=== PATIENT | female | born 1955 | race Caucasian/White ===

== ENCOUNTER 2020-12-07 16:21 | Emergency (ER) | payer OTHER ==
[2020-12-07 17:06] LABS: Absolute Lymphocytes (CBC) 0.9 K/uL (0.7-4.9); Basophils % 0.8 % (0-1.3); Hematocrit 40.5 % (36.0-45.0); MPV 8.4 fL (7.6-11.3); RBC Red Blood Cell Count 4.96 M/uL (3.86-4.86)
[2020-12-07 17:07] LABS: Protime INR 1.1
--- NOTE | 2020-12-07 17:13 | RAD REPORT ---
EXAM DESCRIPTION: RAD - Chest Single View - 12/07/2020 4:56 pm CLINICAL HISTORY: CONGESTION COMPARISON: CHEST PA AND LAT 2 VIEW dated 06/21/2007 FINDINGS: Lines: None. Lungs: No evidence of edema or pneumonia. Pleural: No significant pleural effusions or pneumothorax. Cardiac: The heart size is within normal limits. Bones: No acute fractures. Other: IMPRESSION: No acute cardiopulmonary disease.
[2020-12-07] MEDS ORDERED: NA CHLORIDE 0.9% 1,000 ML ONE (17:18)
[2020-12-07 17:19] LABS: ALT/SGPT 18 U/L (12-78); AST/SGOT 22 U/L (15-37); Albumin 3.7 g/dL (3.4-5.0); Alkaline Phosphatase 47 U/L (45-117); BUN Blood Urea Nitrogen 11 mg/dL (7-18); Bicarbonate 24 mmol/L (21-32); Bilirubin Direct < 0.1 mg/dL (0-0.2); Bilirubin Total 0.2 mg/dL (0.2-1.0); Glucose Level 97 mg/dL (74-106); Lipase 129 U/L (73-393); Magnesium 2.1 mg/dL (1.8-2.4); NT PRO-BNP 36 pg/mL (<125); Protein, Total 7.7 g/dL (6.4-8.2); Sodium Level 139 mmol/L (136-145); Troponin (Emerg Dept Use Only) < 0.02 ng/mL (0.0-0.045)
[2020-12-07] MEDS ORDERED: AZITHROMYCIN 250 MG TAB ONE (18:02)
[2020-12-07 18:24] LABS: SARS-COV-2 RT PCR POSITIVE (NEGATIVE)
[2020-12-07 18:46] LABS: Urine Blood Trace-intact (Negative); Urine Glucose Negative (Negative); Urine Protein Negative (Negative); Urine Specific Gravity >=1.030 (1.005-1.030); Urine pH 5.5 (5.0-7.0)
--- NOTE | 2020-12-07 18:59 | ER ---
Nurse's Notes [facility] Name: Damaris Guerrero Age: 65 yrs Sex: Female : 1955 Arrival Date: 12/07/2020 Time: 16:23 Bed 10 Private MD: Diagnosis: Acute bronchitis, unspecified-with COVID 19 Presentation: 12/07 16:29 Chief complaint: Cough, malaise, generalized weakness, and palpitations x 4 days. hb Coronavirus screen: Client presents with at least one sign or symptom that may indicate coronavirus-19. Standard/surgical mask placed on the client. Provider contacted for isolation considerations. Ebola Screen: No symptoms or risks identified at this time. Risk Assessment: Do you want to hurt yourself or someone else? Patient reports no desire to harm self or others. Onset of symptoms was December 04, 2020. 16:29 Method Of Arrival: Ambulatory hb 16:29 Acuity: KARLY 3 hb 17:07 Initial Sepsis Screen: Does the patient meet any 2 criteria? No. Patient's initial es2 sepsis screen is negative. Does the patient have a suspected source of infection? No. Patient's initial sepsis screen is negative. Historical: - Allergies: 16:30 PENICILLINS; hb - Immunization history:: Client reports having NOT received the Covid vaccine. - Social history:: Smoking status: Patient denies any tobacco usage or history of. Patient/guardian denies using alcohol, street drugs, The patient lives with family. - Family history:: not pertinent. Screenin:07 Abuse screen: Denies threats or abuse. Denies injuries from another. Nutritional es2 screening: No deficits noted. Tuberculosis screening: No symptoms or risk factors identified. Fall Risk None identified. IV access (20 points). Assessment: 17:05 Reassessment: Patient and/or family updated on plan of care and expected duration. Pain es2 level reassessed. Patient is alert, oriented x 3, equal unlabored respirations, skin warm/dry/pink. General: Appears in no apparent distress. Behavior is calm, cooperative, appropriate for age. Pain: Denies pain. Neuro: Level of Consciousness is awake, alert, obeys commands, Oriented to person, place, time, situation, Appropriate for age Gait is unsteady, Speech is normal. Cardiovascular: Capillary refill < 3 seconds Patient's skin is warm and dry. Respiratory: Reports cough that is. GI: Reports diarrhea. : No signs and/or symptoms were reported regarding the genitourinary system. EENT: No signs and/or symptoms were reported regarding the EENT system. Derm: No signs and/or symptoms reported regarding the dermatologic system. Musculoskeletal: No signs and/or symptoms reported regarding the musculoskeletal system. 19:00 Reassessment: Patient appears in no apparent distress at this time. Patient and/or jb4 family updated on plan of care and expected duration. Pain level reassessed. Patient is alert, oriented x 3, equal unlabored respirations, skin warm/dry/pink. 19:28 Reassessment: Patient appears in no apparent distress at this time. Patient and/or jb4 family updated on plan of care and expected duration. Pain level reassessed. Patient is alert, oriented x 3, equal unlabored respirations, skin warm/dry/pink. Vital Signs: 16:29 BP 122 / 93; Pulse 92; Resp 16; Temp 97.9; Pulse Ox 99% on R/A; Weight 58.97 kg; Height hb 5 ft. 3 in. (160.02 cm); Pain 0/10; 17:04 BP 113 / 77; Pulse 84; Resp 24; Pulse Ox 98% on R/A; es2 19:28 BP 121 / 74; Pulse 84; Resp 16; Pulse Ox 98% on R/A; jb4 16:29 Body Mass Index 23.03 (58.97 kg, 160.02 cm) hb ED Course: 16:23 Patient arrived in ED. as 16:30 Triage completed. hb 16:30 Arm band placed on. hb 16:36 Dianne Tyler, JESSICA is Primary Nurse. es2 16:36 John Hewitt MD is Attending Physician. ma2 16:51 Lipase Sent. es2 16:52 Basic Metabolic Panel Sent. es2 16:52 CBC with Diff Sent. es2 16:52 LFT's Sent. es2 16:52 Troponin (emerg Dept Use Only) Sent. es2 16:52 PT-INR Sent. es2 16:52 NT PRO-BNP Sent. es2 16:52 Magnesium Sent. es2 16:52 Strep Sent. es2 16:56 XRAY Chest (1 view) In Process Unspecified. EDMS 17:03 Lipase Sent. es2 17:04 Inserted saline lock: 20 gauge in right antecubital area, using aseptic technique. es2 Blood collected. 17:07 Patient has correct armband on for positive identification. Bed in low position. es2 17:07 No provider procedures requiring assistance completed. es2 18:47 Urine Dipstick-Ancillary Sent. es2 19:28 IV discontinued, intact, bleeding controlled, No redness/swelling at site. Pressure jb4 dressing applied. Administered Medications: 17:03 Drug: NS 0.9% 1000 ml Route: IV; Rate: 1 bolus; Site: right antecubital; es2 17:48 Follow up: Response: No adverse reaction es2 17:47 Drug: AZITHromycin 500 mg Route: PO; es2 19:13 Follow up: Response: No adverse reaction jb4 19:13 Drug: Zofran (Ondansetron) 4 mg Route: IVP; Site: right antecubital; jb4 19:14 Follow up: Response: No adverse reaction jb4 Outcome: 18:58 Discharge ordered by . ma2 19:28 Discharged to home ambulatory. jb4 19:28 Condition: stable 19:28 Discharge instructions given to patient, Instructed on discharge instructions, follow up and referral plans. medication usage, Demonstrated understanding of instructions, follow-up care, medications, Prescriptions given X 4. 19:30 Patient left the ED. jb4 Signatures: Dispatcher [employer] EDMS Renea Layton Heather, RN RN Perry Ziegler RN RN jb4 John Hewitt MD MD ia2 Dianne Tyler RN RN es2 Corrections: (The following items were deleted from the chart) 16:30 16:30 Allergies: No Known Allergies; hb hb 17:30 16:51 CORONAVIRUS+MR.LAB.BRZ drawn and sent. es2 EDMS 17:30 16:52 Influenza Screen (A \T\ B)+BA.LAB.BRZ drawn and sent. es2 EDMS 17:30 16:52 Respiratory Syncytial Virus Ag+BA.LAB.BRZ drawn and sent. es2 EDMS
--- NOTE | 2020-12-07 18:59 | EDPHYS ---
Physician Documentation [facility] Name: Damaris Guerrero Age: 65 yrs Sex: Female : 1955 Arrival Date: 12/07/2020 Time: 16:23 Bed 10 Private MD: ED Physician John Hewitt HPI: 12/07 17:42 This 65 yrs old Female presents to ER via Ambulatory with complaints of ma2 Cough, Diarrhea. 17:42 Onset: The symptoms/episode began/occurred gradually, 2 day(s) ago. Severity of ma2 symptoms: At their worst the symptoms were moderate, in the emergency department the symptoms are unchanged. Associated signs and symptoms: Pertinent positives: diarrhea, Pertinent negatives: chest pain, ear ache, fever, rhinorrhea, sore throat, vomiting. The patient has experienced a previous episode. Historical: - Allergies: 16:30 PENICILLINS; hb - Immunization history:: Client reports having NOT received the Covid vaccine. - Social history:: Smoking status: Patient denies any tobacco usage or history of. Patient/guardian denies using alcohol, street drugs, The patient lives with family. - Family history:: not pertinent. ROS: 17:42 Constitutional: Negative for fever, chills, and weight loss. ma2 17:42 All other systems are negative. Exam: 17:42 Constitutional: This is a well developed, well nourished patient who is awake, alert, ma2 and in no acute distress. Head/Face: Normocephalic, atraumatic. Eyes: Pupils equal round and reactive to light, extra-ocular motions intact. Lids and lashes normal. Conjunctiva and sclera are non-icteric and not injected. Cornea within normal limits. Periorbital areas with no swelling, redness, or edema. ENT: Nares patent. No nasal discharge, no septal abnormalities noted. Tympanic membranes are normal and external auditory canals are clear. Oropharynx with no redness, swelling, or masses, exudates, or evidence of obstruction, uvula midline. Mucous membranes moist. Neck: Trachea midline, no thyromegaly or masses palpated, and no cervical lymphadenopathy. Supple, full range of motion without nuchal rigidity, or vertebral point tenderness. No Meningismus. Chest/axilla: Normal chest wall appearance and motion. Nontender with no deformity. No lesions are appreciated. Cardiovascular: Regular rate and rhythm with a normal S1 and S2. No gallops, murmurs, or rubs. Normal PMI, no JVD. No pulse deficits. Respiratory: Lungs have equal breath sounds bilaterally, clear to auscultation and percussion. No rales, rhonchi or wheezes noted. No increased work of breathing, no retractions or nasal flaring. Abdomen/GI: Soft, non-tender, with normal bowel sounds. No distension or tympany. No guarding or rebound. No evidence of tenderness throughout. Back: No spinal tenderness. No costovertebral tenderness. Full range of motion. Skin: Warm, dry with normal turgor. Normal color with no rashes, no lesions, and no evidence of cellulitis. MS/ Extremity: Pulses equal, no cyanosis. Neurovascular intact. Full, normal range of motion. Neuro: Awake and alert, GCS 15, oriented to person, place, time, and situation. Cranial nerves II-XII grossly intact. Motor strength 5/5 in all extremities. Sensory grossly intact. Cerebellar exam normal. Normal gait. Vital Signs: 16:29 BP 122 / 93; Pulse 92; Resp 16; Temp 97.9; Pulse Ox 99% on R/A; Weight 58.97 kg; Height hb 5 ft. 3 in. (160.02 cm); Pain 0/10; 17:04 BP 113 / 77; Pulse 84; Resp 24; Pulse Ox 98% on R/A; es2 19:28 BP 121 / 74; Pulse 84; Resp 16; Pulse Ox 98% on R/A; jb4 16:29 Body Mass Index 23.03 (58.97 kg, 160.02 cm) hb MDM: 17:42 Differential Diagnosis: Bronchitis Upper Respiratory Infection Sinusitis Pharyngitis ma2 Otitis Media. 18:58 Data reviewed: vital signs, nurses notes. Counseling: I had a detailed discussion with maAustin the patient and/or guardian regarding: the historical points, exam findings, and any diagnostic results supporting the discharge/admit diagnosis, the presence of at least one elevated blood pressure reading (>120/80) during this emergency department visit, lab results, radiology results, the need for outpatient follow up. Response to treatment: the patient's symptoms have markedly improved after treatment. 18:58 Patient medically screened. ma2 12/07 16:37 Order name: Strep; Complete Time: 18:25 ma2 12/07 16:37 Order name: Basic Metabolic Panel; Complete Time: 17:28 ma2 12/07 16:37 Order name: CBC with Diff; Complete Time: 17:28 ma2 12/07 16:37 Order name: LFT's; Complete Time: 17:28 ma2 12/07 16:37 Order name: Magnesium; Complete Time: 17:28 ma2 12/07 16:37 Order name: NT PRO-BNP; Complete Time: 17:28 ma2 12/07 16:37 Order name: PT-INR; Complete Time: 17:28 ma2 12/07 16:37 Order name: Troponin (emerg Dept Use Only); Complete Time: 17:28 ma2 12/07 16:37 Order name: Lipase; Complete Time: 17:28 ma2 12/07 18:07 Order name: Throat Culture EDMS 12/07 18:25 Order name: COVID-19/FLU A+B/RSV; Complete Time: 18:29 EDMS 12/07 16:37 Order name: Droplet/Contact Precautions; Complete Time: 17:48 ma2 12/07 16:37 Order name: Labs collected and sent; Complete Time: 16:52 ma2 12/07 16:37 Order name: O2 Per Protocol; Complete Time: 17:48 ma2 12/07 16:37 Order name: XRAY Chest (1 view); Complete Time: 17:28 ma2 12/07 16:37 Order name: EKG; Complete Time: 16:38 ma2 12/07 16:37 Order name: Cardiac monitoring; Complete Time: 17:03 ma2 12/07 16:37 Order name: EKG - Nurse/Tech; Complete Time: 17:31 ma2 12/07 16:37 Order name: IV Saline Lock; Complete Time: 16:51 ma2 12/07 16:37 Order name: O2 Sat Monitoring; Complete Time: 17:03 ma2 12/07 16:37 Order name: Urine Dipstick-Ancillary (obtain specimen); Complete Time: 18:47 ma2 12/07 18:45 Order name: Urine Dipstick-Ancillary EDMS Administered Medications: 17:03 Drug: NS 0.9% 1000 ml Route: IV; Rate: 1 bolus; Site: right antecubital; es2 17:48 Follow up: Response: No adverse reaction es2 17:47 Drug: AZITHromycin 500 mg Route: PO; es2 19:13 Follow up: Response: No adverse reaction jb4 19:13 Drug: Zofran (Ondansetron) 4 mg Route: IVP; Site: right antecubital; jb4 19:14 Follow up: Response: No adverse reaction jb4 Disposition Summary: 12/07/20 18:58 Discharge Ordered Location: Home ma2 Condition: Stable ma2 Diagnosis - Acute bronchitis, unspecified - with COVID 19 ma2 Followup: ma2 - With: Private Physician - When: Tomorrow - Reason: If symptoms return, Continuance of care Discharge Instructions: - Discharge Summary Sheet ma2 - Acute Bronchitis, Adult ma2 - COVID-19 ma2 - COVID-19 Frequently Asked Questions ma2 Forms: - Medication Reconciliation Form ma2 - Thank You Letter ma2 - Antibiotic Education ma2 - Prescription Opioid Use ma2 Prescriptions: - albuterol sulfate 90 mcg/actuation Inhalation aerosol powdr breath activated - inhale 2 puff by INHALATION route 3-4 times daily; 2 Cartridge; Refills: 0, ma2 Product Selection Permitted - Zithromax Z-Juan M 250 mg Oral Tablet - take 1 tablet by ORAL route as directed for 5 days Day 1 - take two (2) tablets ma2 one time. Day 2, 3, 4 , 5 take one (1) tablet once daily.; 6 tablet; Refills: 0, Product Selection Permitted - Medrol (Juan M) 4 mg Oral Tablets, Dose Pack - take 1 tablet by ORAL route as directed - follow package instructions; 1 ma2 packet; Refills: 0, Product Selection Permitted - ondansetron 8 mg Oral tablet,disintegrating - take 1 tablet by ORAL route every 8 hours; 21 tablet; Refills: 0, Product ma2 Selection Permitted Signatures: Dispatcher [employer] EDBonnie Hull RN RN Perry Ziegler RN RN jb4 John Hewitt MD MD ma2 Dianne Tyler RN RN es2 Corrections: (The following items were deleted from the chart) 16:30 16:30 Allergies: No Known Allergies; hb hb 17:30 16:38 Influenza Screen (A \T\ B)+BA.LAB.BRZ ordered. EDMS EDMS 17: 16:38 Respiratory Syncytial Virus Ag+BA.LAB.BRZ ordered. EDMS EDMS 17 16:38 CORONAVIRUS+MR.LAB.BRZ ordered. EDMS EDMS
[2020-12-07] MEDS ORDERED: ONDANSETRON 4 MG/2 ML VIAL ONE (19:30)
[2020-12-07 19:37] VITALS: TEMP 97.9
[2020-12-07 19:38] VITALS: O2SAT 98
[2020-12-07 19:39] VITALS: BP 121/74
== END 2020-12-07 19:30 | disposition home or self-care (01) ==
LOC: ER 16:21
DX: U07.1 COVID-19 (principal); J20.9 Acute bronchitis, unspecified; Z88.5 Allergy status to narcotic agent
CPT/HCPCS: 87070; 85025; 80048; 36415; 83735; 85610; 80076; 87081; 81003; 84484; 83690; 83880; 0241U; 71045; 96374; 99284; J7030; J2405

== ENCOUNTER 2020-12-20 09:32 | Emergency (ER) | payer OTHER ==
--- NOTE | 2020-12-20 09:50 | EDPHYS ---
Physician Documentation [facility] Name: Damaris Guerrero Age: 65 yrs Sex: Female : 1955 Arrival Date: 12/20/2020 Time: 09:37 Bed Waiting Private MD: ED Physician Chuy Beltran HPI: 12/20 09:50 This 65 yrs old Female presents to ER via Ambulatory with complaints of covid kb retest. 09:50 Pt reports she tested positive for COVID on 12/07/20 and wants to be retested to see if kb it is gone. Pt is asymptomatic. The patient has not experienced similar symptoms in the past. The patient has not recently seen a physician. Historical: - Allergies: 09:46 PENICILLINS; jl7 - PMHx: 09:46 Hypothyroidism; Hypercholesterolemia; Asthma; jl7 - PSHx: 09:46 None; jl7 ROS: 09:50 Constitutional: Negative for fever, chills, and weight loss. kb 09:50 All other systems are negative. Exam: 09:50 Constitutional: This is a well developed, well nourished patient who is awake, alert, kb and in no acute distress. Head/Face: Normocephalic, atraumatic. ENT: Moist Mucous membranes Cardiovascular: Regular rate and rhythm with a normal S1 and S2. No gallops, murmurs, or rubs. No pulse deficits. Respiratory: Respirations even and unlabored. No increased work of breathing, no retractions or nasal flaring. Skin: Warm, dry with normal turgor. Normal color. MS/ Extremity: Pulses equal, no cyanosis. Neurovascular intact. Full, normal range of motion. Neuro: Awake and alert, GCS 15, oriented to person, place, time, and situation. Moves all extremities. Normal gait. Psych: Awake, alert, with orientation to person, place and time. Behavior, mood, and affect are within normal limits. Vital Signs: 09:44 BP 106 / 75; Pulse 84; Resp 15; Temp 96.7; Pulse Ox 99% on R/A; Weight 56.7 kg (R); jl7 Height 5 ft. 3 in. (160.02 cm); 09:44 Body Mass Index 22.14 (56.70 kg, 160.02 cm) jl7 MDM: 09:45 Patient medically screened. kb 09:49 Data reviewed: vital signs, nurses notes. Data interpreted: Pulse oximetry: on room air kb is 99 %. Interpretation: normal. Counseling: I had a detailed discussion with the patient and/or guardian regarding: the historical points, exam findings, and any diagnostic results supporting the discharge/admit diagnosis, the need for outpatient follow up, a family practitioner, to return to the emergency department if symptoms worsen or persist or if there are any questions or concerns that arise at home. Medical screen evaluation completed. EMTALA emergency medical condition absent. Administered Medications: No medications were administered Disposition: 09:49 Encounter for repeat COVID test - asymptomatic. kb 13:09 Co-signature as Attending Physician, Chuy Beltran MD I agree with the assessment and kdr plan of care. Disposition Summary: 12/20/20 09:50 Discharge Ordered Location: Home kb Condition: Stable kb Diagnosis - Encounter for screening, unspecified kb Followup: kb - With: Emergency Department - When: As needed - Reason: Worsening of condition Followup: kb - With: Private Physician - When: 2 - 3 days - Reason: Recheck today's complaints, Continuance of care, Re-evaluation by your physician Forms: - Medication Reconciliation Form kb - Thank You Letter kb - Antibiotic Education kb - Prescription Opioid Use kb Signatures: Mackenzie Martin FNP-Gopi DHALIWAL-Chuy Harrison MD MD kdr Vega Hicks RN RN jl7 Corrections: (The following items were deleted from the chart) 09:47 09:46 PMHx: None; jl7 jl7
--- NOTE | 2020-12-20 09:50 | ER ---
Nurse's Notes [facility] Name: Damaris Guerrero Age: 65 yrs Sex: Female : 1955 Arrival Date: 12/20/2020 Time: 09:37 Bed Waiting Private MD: Diagnosis: Encounter for screening, unspecified Presentation: 12/20 09:44 Chief complaint: Patient states: Covid + 12/07/20, requesting retest. Coronavirus jl7 screen: Client reports previous positive COVID test result. Date of collection: December 07, 2020. Ebola Screen: No symptoms or risks identified at this time. Initial Sepsis Screen: Does the patient meet any 2 criteria? No. Patient's initial sepsis screen is negative. Does the patient have a suspected source of infection? No. Patient's initial sepsis screen is negative. Risk Assessment: Do you want to hurt yourself or someone else? Patient reports no desire to harm self or others. Onset of symptoms was December 01, 2020. Care prior to arrival: None. 09:44 Method Of Arrival: Ambulatory jl7 09:44 Acuity: KARLY 4 jl7 Historical: - Allergies: 09:46 PENICILLINS; jl7 - PMHx: 09:46 Hypothyroidism; Hypercholesterolemia; Asthma; jl7 - PSHx: 09:46 None; jl7 Screenin:51 Abuse screen: Denies threats or abuse. Denies injuries from another. Nutritional jl7 screening: No deficits noted. Tuberculosis screening: No symptoms or risk factors identified. Fall Risk None identified. Assessment: 09:47 Reassessment: RADHA Mann in triage assessing pt. jl7 Vital Signs: 09:44 BP 106 / 75; Pulse 84; Resp 15; Temp 96.7; Pulse Ox 99% on R/A; Weight 56.7 kg (R); jl7 Height 5 ft. 3 in. (160.02 cm); 09:44 Body Mass Index 22.14 (56.70 kg, 160.02 cm) jl7 ED Course: 09:37 Patient arrived in ED. as 09:37 Mackenzie Martin FNP-C [facility]. kb 09:38 Chuy Beltran MD is Attending Physician. kb 09:46 Triage completed. jl7 09:46 Arm band placed on right wrist. jl7 09:51 Patient has correct armband on for positive identification. jl7 09:51 No provider procedures requiring assistance completed. Patient did not have IV access jl7 during this emergency room visit. Administered Medications: No medications were administered Outcome: 09:50 Discharge ordered by . kb 09:51 Discharged to home ambulatory. jl7 09:51 Condition: stable 09:51 Discharge instructions given to patient, Instructed on discharge instructions, follow up and referral plans. Demonstrated understanding of instructions, follow-up care. 09:55 Patient left the ED. jl7 Signatures: Mackenzie Martin, DECISION SCIENCE ANALYST-C DECISION SCIENCE ANALYST-Reena Alamo Jahala, RN RN jl7 Corrections: (The following items were deleted from the chart) 09:47 09:46 PMHx: None; jl7 jl7
[2020-12-20 10:00] VITALS: BP 106/75; TEMP 96.7; O2SAT 99
== END 2020-12-20 09:55 | disposition home or self-care (01) ==
LOC: ER 09:32
DX: Z20.822 Contact with and (suspected) exposure to COVID-19 (principal)
CPT/HCPCS: 99281

== ENCOUNTER 2022-02-25 08:45 | Emergency (ER) | payer OTHER ==
--- OUTSIDE RECORDS SUMMARY | 2022-02-25 08:52 | XMS REPORT | Continuity of Care Document ---
:1955 Author Organization [facility] t Address [address] [place] [address] Care Team Providers Name Role Phone Opal Arellano Primary Care Physician [phone] Barbra Hammer Attending Clinician Unavailable KARINA HERNANDEZ Attending Clinician Unavailable Sumeet Paul Attending Clinician JOSE Attending Clinician Unavailable SUMEET MARIE Attending Clinician Unavailable Doctor Unassigned, [place] Attending Clinician Unavailable KARINA HERNANDEZ Admitting Clinician Unavailable JOSE Admitting Clinician Unavailable Payers Payer Name Policy Type Policy Number Effective Date Expiration Date S gricelda [facility] WELLMED [id number] 2020 00:00:00 AARP [facility] 53 [id number] 2020 [facility] ADVANTAGE 00:00:00 - [facility] Problems Condition Condition Condition Status Onset Resolution Last Treating Co mments Source Name Details Category Date Date Treatment Clinician Date [id number] Acquired Problem Comm on hypothyroi Spirit dism [facility] [id number] Eczema, Problem Common unspecifie Spirit d type [facility] [id number] Mild Problem Common intermitte Spirit nt asthma - [facility] without St complicati [facility] Allergic Allergic Problem Commo n rhinitis rhinitis, Spiri t unspecifie - CHI d [facility] [id number] Intrinsic Problem Comm on eczema [facility] [id number] Nontraumat Problem Co mmon ic tear of [facility] right [facility] rotator St cuff, [facility] unspecifie Medica l d tear Center extent Osteoporos Osteoporos Problem C ommon is is [facility] Hypothyroi Hypothyroi Problem C ommon dism [facility] Hyperlipid Hyperlipid Problem C ommon emia emia [facility] [id number] Vitamin D Problem Comm on insufficie Spirit ncy [facility] No known No known Disease Unive rs active active ity of problems problems [facility] Allergies, Adverse Reactions, Alerts Allergy Allergy Status Severity Reaction(s) Onset Inactive Treating Comm ents Source Name Type Date Date Clinician NO KNOWN Drug Active Univers ALLERGIE Class ity of S [facility] Codeine Codeine Active vomiting [facility] Social History Social Habit Start Date Stop Date Quantity Comments Source History of [facility] - Tobacco Use [facility] Sex Assigned At [facility] guillermina - [facility] Exposure to Not sure [facility] SARS-CoV-2 [facility] (event) Branch Tobacco use and 2021-06-18 2021-06-18 Smokeless tobacco Un iversity of exposure 00:00:00 00:00:00 non-user [facility] Alcohol intake 2021-06-18 2021-06-18 0 /d University of 00:00:00 00:00:00 [facility] Smoking Status Start Date Stop Date Source Never Smoker [facility] Medications Ordered Filled Start Stop Current Ordering Indication Dosage Frequency Signature Comments Components Source Medication Medication Date Date Medication? Clinician (SIG) Name Name Mupirocin 2 Mupirocin 2 2022- No 1{appli BID Mupirocin % % 6-24 06-29 cation} 2 % 00:00: 00:00 00 :00 pravastatin Yes 40mg Take 40 mg Univers (PRAVACHOL) 4-13 by mouth ity of 40 mg 12:18: at [place] tablet 30 bedtime. Medical Branch loratadine Yes 10mg Take 10 mg U nivers (CLARITIN) 4-13 by mouth ity o f 10 mg 12:18: daily. [place] tablet 30 Medical Branch thyroid Yes 60mg Take 60 mg Univ ers (ARMOUR 4-13 by mouth ity of THYROID) 60 12:18: every [place] mg tablet 30 morning. Medica l Branch beclomethas Yes Inhale 2 Un jamshid one 4-13 (two) ity of dipropionat 12:18: times [place] e (QVAR) 80 30 daily. Medica l mcg/actuati Branch on inhaler montelukast Yes 10mg Take 10 mg Univers (SINGULAIR) 4-13 by mouth ity of 10 mg 12:18: daily. [place] tablet 30 Medical Branch ALBUTEROL Yes Inhale. Unive rs SULFATE 4-13 ity of (PROAIR HFA 12:18: [place] INHALE) 30 Medical Branch ibandronate Yes 150mg Take 150 U nivers (BONIVA) 4-13 mg by ity of 150 mg 12:18: mouth once [place] tablet 30 every Medical month. Branch clobetasol Yes Apply to Uni vers (TEMOVATE) 4-13 area(s) 2 ity of 0.05 % 12:18: (two) [place] ointment 30 times Medical daily. Branch ESTRADIOL Yes Insert Univer s (VAGIFEM 4-13 into ity of VAGINAL) 12:18: vagina. [place] 30 Medical Branch PROGESTERON Yes Univer s E MISC 4-13 ity of 12:18: 30 Medical Branch Cyanocobala Yes 2500ug Place Uni vers min 4-13 2,500 mcg ity of (VITAMIN 12:18: [place] B-12[place] 1,000 30 tongue. Medic al mcg Branch sublingual tablet Biotin Yes 1000ug Take 1,000 Uni vers (APPEAREX) 4-13 mcg by ity of 2,500 mcg 12:18: mouth. [place] Tab 30 Medical Branch pravastatin Yes 40mg Take 40 mg Univers (PRAVACHOL) 4-13 by mouth ity of 40 mg 12:18: at [place] tablet 30 bedtime. Medical Branch loratadine Yes 10mg Take 10 mg U nivers (CLARITIN) 4-13 by mouth ity o f 10 mg 12:18: daily. [place] tablet 30 Medical Branch thyroid Yes 60mg Take 60 mg Univ ers (ARMOUR 4-13 by mouth ity of THYROID) 60 12:18: every [place] mg tablet 30 morning. Medica l Branch beclomethas Yes Inhale 2 Un jamshid one 4-13 (two) ity of dipropionat 12:18: times [place] e (QVAR) 80 30 daily. Medica l mcg/actuati Branch on inhaler montelukast Yes 10mg Take 10 mg Univers (SINGULAIR) 4-13 by mouth ity of 10 mg 12:18: daily. [place] tablet 30 Medical Branch ALBUTEROL Yes Inhale. Unive rs SULFATE 4-13 ity of (PROAIR HFA 12:18: [place] INHALE) 30 Medical Branch ibandronate Yes 150mg Take 150 U nivers (BONIVA) 4-13 mg by ity of 150 mg 12:18: mouth once [place] tablet 30 every Medical month. Branch clobetasol Yes Apply to Uni vers (TEMOVATE) 4-13 area(s) 2 ity of 0.05 % 12:18: (two) [place] ointment 30 times Medical daily. Branch ESTRADIOL Yes Insert Univer s (VAGIFEM 4-13 into ity of VAGINAL) 12:18: vagina. 30 Medical Branch PROGESTERON Yes Univer s E MISC 4-13 ity of 12:18: 30 Medical Branch Cyanocobala Yes 2500ug Place Uni vers min 4-13 2,500 mcg ity of (VITAMIN 12:18: [place] B-12[place] 1,000 30 tongue. Medic al mcg Branch sublingual tablet Biotin Yes 1000ug Take 1,000 Uni vers (APPEAREX) 4-13 mcg by ity of 2,500 mcg 12:18: mouth. [place] Tab 30 Medical Branch mupirocin 2 Yes [id number] Apply to Univers % ointment 06-18 [id number] area(s) 3 it y of 00:00: (three) [place] 00 times Medical daily. Branch mupirocin 2 Yes [id number] Apply to Univers % ointment - [id number] area(s) 3 it y of 00:00: (three) [place] 00 times Medical daily. Branch cephALEXin 2021- No [id number] 500mg Take 1 Univers (KEFLEX) -06-29 [id number] capsule by it y of 500 mg 00:00: 04:59 mouth 4 [place] capsule 00 :00 (four) Medical times [place] daily for 10 days. EUTHYROX 75 Yes TAKE 1 Univ ers mcg tablet 3-10 TABLET BY ity of 00:00: MOUTH IN [place] 00 THE Medical MORNING ON Branch AN EMPTY STOMACH ONCE DAILY WEDNESDAY - WEDNESDAY SKIP WEDNESDAY. EUTHYROX 75 Yes TAKE 1 Univ ers mcg tablet 3-10 TABLET BY ity of 00:00: MOUTH IN [place] 00 THE Medical MORNING ON Branch AN EMPTY STOMACH ONCE DAILY WEDNESDAY - WEDNESDAY SKIP WEDNESDAY. methylPREDN methylPREDN 2021- No methylPRED ISolone 4 ISolone 4 3-05-16 NISolone 4 MG MG 00:00: 00:00 MG 00 :00 Pseudoeph-B Pseudoeph-B 2021- No 5{ml_as QID Pseudoeph- romphen-DM romphen-DM 04-24 _needed Bromphen-D 06-04-19 06-04-19 00:00: 00:00 } M -20 MG/5ML MG/5ML 00 :00 MG/5ML Pseudoeph-B Pseudoeph-B 2021- No 5{ml_as QID Pseudoeph- romphen-DM romphen-DM 2-17 03-09 _needed Bromphen-D 30-1-20 30-20 00:00: 00:00 } M 30-1-20 MG/5ML MG/5ML 00 :00 MG/5ML Pseudoeph-B Pseudoeph-B 2021-0 2022- No 5{ml_as QID Pseudoeph- romphen-DM romphen-DM 2-17 03-09 _needed Bromphen-D 30-1-20 -20 00:00: 00:00 } M 30-1-20 MG/5ML MG/5ML 00 :00 MG/5ML alendronate 2021-0 Yes 70mg Take 70 mg Univers 70 mg 1-18 by mouth ity of tablet 00:00: weekly. [address] alendronate 2021-0 Yes 70mg Take 70 mg Univers 70 mg 1-18 by mouth ity of tablet 00:00: weekly. [address] Kenalog Kenalog 2019-1 No 40mg Common (Triamcinol (Triamcinol 0-05 S pirit one) one) 00:00: - CHI 00 [facility] Bupivicaine Bupivicaine 2020-1 No 5mg Common [place] 0-05 Spirit 00:00: - CHI 00 [facility] Kenalog Kenalog 2020-1 No 40mg Common (Triamcinol (Triamcinol 0-05 S pirit one) one) 00:00: - CHI 00 [facility] Bupivicaine Bupivicaine 2020-1 No 5mg Common [place] 0-05 Spirit 00:00: - CHI 00 [facility] Kenalog Kenalog 2020-1 No 40mg Common (Triamcinol (Triamcinol 0-05 S pirit one) one) 00:00: - CHI 00 [facility] Bupivicaine Bupivicaine 2020-1 No 5mg Common [place] 0-05 Spirit 00:00: - CHI 00 [facility] Kenalog Kenalog 2020-1 No 40mg Common (Triamcinol (Triamcinol 0-05 S pirit one) one) 00:00: - CHI 00 [facility] Bupivicaine Bupivicaine 2020-1 No 5mg Common [place] 0-05 Spirit 00:00: - CHI 00 [facility] Kenalog Kenalog 2020-1 No 40mg Common (Triamcinol (Triamcinol 0-05 S pirit one) one) 00:00: - CHI 00 [facility] Bupivicaine Bupivicaine 2020-1 No 5mg Common [place] 0-05 Spirit 00:00: - CHI 00 [facility] Kenalog Kenalog 2020- No 40mg Common (Triamcinol (Triamcinol 0-05 S pirit one) one) 00:00: - CHI 00 [facility] Bupivicaine Bupivicaine 2020- No 5mg Common [place] 0-05 Spirit 00:00: - CHI 00 [facility] Kenalog Kenalog 2020- No 40mg Common (Triamcinol (Triamcinol 0-05 S pirit one) one) 00:00: - CHI 00 [facility] Bupivicaine Bupivicaine 2020-1 No 5mg Common [place] 0-05 Spirit 00:00: - CHI 00 [facility] Kenalog Kenalog 2020- No 40mg Common (Triamcinol (Triamcinol 0-05 S pirit one) one) 00:00: - CHI 00 [facility] Bupivicaine Bupivicaine 2020-1 No 5mg Common [place] 0-05 Spirit 00:00: - CHI 00 [facility] Kenalog Kenalog 2020-1 No 40mg Common (Triamcinol (Triamcinol 0-05 S pirit one) one) 00:00: - CHI 00 [facility] Bupivicaine Bupivicaine 2020-1 No 5mg Common [place] 0-05 Spirit 00:00: - CHI 00 [facility] Kenalog Kenalog 2020-1 No 40mg Common (Triamcinol (Triamcinol 0-05 S pirit one) one) 00:00: - CHI 00 [facility] Bupivicaine Bupivicaine 2020-1 No 5mg Common [place] 0-05 Spirit 00:00: - CHI 00 [facility] Albuterol Albuterol 2020-0 Yes Barbra 3 ml as Common Sulfate Sulfate 6-10 [place] needed Spirit 00:00: - CHI 00 [facility] Albuterol Albuterol 2020-0 No 3{ml_as QID Albuterol Sulfate Sulfate 6-10 _needed Sulfate (2.5 (2.5 00:00: } (2.5 MG/3ML) MG/3ML) 00 MG/3ML) 0.083% 0.083% 0.083% Albuterol Albuterol 2019-0 No 3{ml_as QID Albuterol Sulfate Sulfate 6-10 _needed Sulfate (2.5 (2.5 00:00: } (2.5 MG/3ML) MG/3ML) 00 MG/3ML) 0.083% 0.083% 0.083% Albuterol Albuterol 2019-0 No 3{ml_as QID Albuterol Sulfate Sulfate 6-10 _needed Sulfate (2.5 (2.5 00:00: } (2.5 MG/3ML) MG/3ML) 00 MG/3ML) 0.083% 0.083% 0.083% Albuterol Albuterol 2019-0 No 3{ml_as QID Albuterol Sulfate Sulfate 6-10 _needed Sulfate (2.5 (2.5 00:00: } (2.5 MG/3ML) MG/3ML) 00 MG/3ML) 0.083% 0.083% 0.083% Albuterol Albuterol 2019-0 No 3{ml_as TID Albuterol Sulfate Sulfate 6-10 _needed Sulfate (2.5 (2.5 00:00: } (2.5 MG/3ML) MG/3ML) 00 MG/3ML) 0.083% 0.083% 0.083% Albuterol Albuterol 2019-0 No 3{ml_as TID Albuterol Sulfate Sulfate 6-10 _needed Sulfate (2.5 (2.5 00:00: } (2.5 MG/3ML) MG/3ML) 00 MG/3ML) 0.083% 0.083% 0.083% Albuterol Albuterol 2019-0 No 3{ml_as TID Albuterol Sulfate Sulfate 6-10 _needed Sulfate (2.5 (2.5 00:00: } (2.5 MG/3ML) MG/3ML) 00 MG/3ML) 0.083% 0.083% 0.083% Albuterol Albuterol 2020-0 No 3{ml_as TID Albuterol Sulfate Sulfate 6-10 _needed Sulfate (2.5 (2.5 00:00: } (2.5 MG/3ML) MG/3ML) 00 MG/3ML) 0.083% 0.083% 0.083% Albuterol Albuterol 2020-0 No 3{ml_as TID Albuterol Sulfate Sulfate 6-10 _needed Sulfate (2.5 (2.5 00:00: } (2.5 MG/3ML) MG/3ML) 00 MG/3ML) 0.083% 0.083% 0.083% Albuterol Albuterol 2020-0 No 3{ml_as TID Albuterol Sulfate Sulfate 6-10 _needed Sulfate (2.5 (2.5 00:00: } (2.5 MG/3ML) MG/3ML) 00 MG/3ML) 0.083% 0.083% 0.083% Albuterol Albuterol 2020-0 No 3{ml_as TID Albuterol Sulfate Sulfate 6-10 _needed Sulfate (2.5 (2.5 00:00: } (2.5 MG/3ML) MG/3ML) 00 MG/3ML) 0.083% 0.083% 0.083% Albuterol Albuterol 2020-0 No 3{ml_as TID Albuterol Sulfate Sulfate 6-10 _needed Sulfate (2.5 (2.5 00:00: } (2.5 MG/3ML) MG/3ML) 00 MG/3ML) 0.083% 0.083% 0.083% Albuterol Albuterol 2020-0 No 3{ml_as TID Albuterol Sulfate Sulfate 6-10 _needed Sulfate (2.5 (2.5 00:00: } (2.5 MG/3ML) MG/3ML) 00 MG/3ML) 0.083% 0.083% 0.083% Albuterol Albuterol 2020-0 No 3{ml_as TID Albuterol Sulfate Sulfate 6-10 _needed Sulfate (2.5 (2.5 00:00: } (2.5 MG/3ML) MG/3ML) 00 MG/3ML) 0.083% 0.083% 0.083% Albuterol Albuterol 2020-0 No 3{ml_as TID Albuterol Sulfate Sulfate 6-10 _needed Sulfate (2.5 (2.5 00:00: } (2.5 MG/3ML) MG/3ML) 00 MG/3ML) 0.083% 0.083% 0.083% Albuterol Albuterol 2020-0 No 3{ml_as TID Albuterol Sulfate Sulfate 6-10 _needed Sulfate (2.5 (2.5 00:00: } (2.5 MG/3ML) MG/3ML) 00 MG/3ML) 0.083% 0.083% 0.083% Albuterol Albuterol 2020-0 No 3{ml_as TID Albuterol Sulfate Sulfate 6-10 _needed Sulfate (2.5 (2.5 00:00: } (2.5 MG/3ML) MG/3ML) 00 MG/3ML) 0.083% 0.083% 0.083% Albuterol Albuterol 2020-0 No 3{ml_as QID Albuterol Sulfate Sulfate 6-10 _needed Sulfate (2.5 (2.5 00:00: } (2.5 MG/3ML) MG/3ML) 00 MG/3ML) 0.083% 0.083% 0.083% Triamcinolo Triamcinolo 2019-0 Yes Barbra 1 Common ne ne 4-16 [place] applicatio Spirit Acetonide Acetonide 00:00: n - C HI 00 [facility] Triamcinolo Triamcinolo 2019-0 No 1{appli Triamcinol ne ne 4-16 cation} one Acetonide Acetonide 00:00: Acetonide 0.1 % 0.1 % 00 0.1 % Triamcinolo Triamcinolo 2020-0 No 1{appli Triamcinol ne ne 4-16 cation} one Acetonide Acetonide 00:00: Acetonide 0.1 % 0.1 % 00 0.1 % Triamcinolo Triamcinolo 2020-0 No 1{appli Triamcinol ne ne 4-16 cation} one Acetonide Acetonide 00:00: Acetonide 0.1 % 0.1 % 00 0.1 % Triamcinolo Triamcinolo 2020-0 No 1{appli Triamcinol ne ne 4-16 cation} one Acetonide Acetonide 00:00: Acetonide 0.1 % 0.1 % 00 0.1 % Triamcinolo Triamcinolo 2020-0 No 1{appli Triamcinol ne ne 4-16 cation} one Acetonide Acetonide 00:00: Acetonide 0.1 % 0.1 % 00 0.1 % Triamcinolo Triamcinolo 2020-0 No 1{appli Triamcinol ne ne 4-16 cation} one Acetonide Acetonide 00:00: Acetonide 0.1 % 0.1 % 00 0.1 % Triamcinolo Triamcinolo 2020-0 No 1{appli Triamcinol ne ne 4-16 cation} one Acetonide Acetonide 00:00: Acetonide 0.1 % 0.1 % 00 0.1 % Triamcinolo Triamcinolo 2020-0 No 1{appli Triamcinol ne ne 4-16 cation} one Acetonide Acetonide 00:00: Acetonide 0.1 % 0.1 % 00 0.1 % Triamcinolo Triamcinolo 2020-0 No 1{appli Triamcinol ne ne 4-16 cation} one Acetonide Acetonide 00:00: Acetonide 0.1 % 0.1 % 00 0.1 % Kenalog Kenalog 2020-0 No 80mg Common (Triamcinol (Triamcinol 4-16 S pirit one) one) 00:00: - CHI 00 [facility] Dexamethaso Dexamethaso 2020-0 No 8mg Common ne ne 4-16 Spirit 00:00: - CHI 00 [facility] Triamcinolo Triamcinolo 2020-0 No 1{appli Triamcinol ne ne 4-16 cation} one Acetonide Acetonide 00:00: Acetonide 0.1 % 0.1 % 00 0.1 % Kenalog Kenalog 2020-0 No 80mg Common (Triamcinol (Triamcinol 4-16 S pirit one) one) 00:00: - CHI 00 [facility] Dexamethaso Dexamethaso 2020-0 No 8mg Common ne ne 4-16 Spirit 00:00: - CHI 00 [facility] Triamcinolo Triamcinolo 2020-0 No 1{appli Triamcinol ne ne 4-16 cation} one Acetonide Acetonide 00:00: Acetonide 0.1 % 0.1 % 00 0.1 % Kenalog Kenalog 2020-0 No 80mg Common (Triamcinol (Triamcinol 4-16 S pirit one) one) 00:00: - CHI 00 [facility] Dexamethaso Dexamethaso 2020-0 No 8mg Common ne ne 4-16 Spirit 00:00: - CHI 00 [facility] Triamcinolo Triamcinolo 2020-0 No 1{appli Triamcinol ne ne 4-16 cation} one Acetonide Acetonide 00:00: Acetonide 0.1 % 0.1 % 00 0.1 % Kenalog Kenalog 2020-0 No 80mg Common (Triamcinol (Triamcinol 4-16 S pirit one) one) 00:00: - CHI 00 [facility] Dexamethaso Dexamethaso 2020-0 No 8mg Common ne ne 4-16 Spirit 00:00: - CHI 00 [facility] Triamcinolo Triamcinolo 2020-0 No 1{appli Triamcinol ne ne 4-16 cation} one Acetonide Acetonide 00:00: Acetonide 0.1 % 0.1 % 00 0.1 % Kenalog Kenalog 2020-0 No 80mg Common (Triamcinol (Triamcinol 4-16 S pirit one) one) 00:00: - CHI 00 [facility] Dexamethaso Dexamethaso 2020-0 No 8mg Common ne ne 4-16 Spirit 00:00: - CHI 00 [facility] Triamcinolo Triamcinolo 2020-0 No 1{appli Triamcinol ne ne 4-16 cation} one Acetonide Acetonide 00:00: Acetonide 0.1 % 0.1 % 00 0.1 % Kenalog Kenalog 2020-0 No 80mg Common (Triamcinol (Triamcinol 4-16 S pirit one) one) 00:00: - CHI 00 [facility] Dexamethaso Dexamethaso 2020-0 No 8mg Common ne ne 4-16 Spirit 00:00: - CHI 00 [facility] Triamcinolo Triamcinolo 2020-0 No 1{appli Triamcinol ne ne 4-16 cation} one Acetonide Acetonide 00:00: Acetonide 0.1 % 0.1 % 00 0.1 % Kenalog Kenalog 2020-0 No 80mg Common (Triamcinol (Triamcinol 4-16 S pirit one) one) 00:00: - CHI 00 [facility] Dexamethaso Dexamethaso 2020-0 No 8mg Common ne ne 4-16 Spirit 00:00: - CHI 00 [facility] Triamcinolo Triamcinolo 2020-0 No 1{appli Triamcinol ne ne 4-16 cation} one Acetonide Acetonide 00:00: Acetonide 0.1 % 0.1 % 00 0.1 % Kenalog Kenalog 2020-0 No 80mg Common (Triamcinol (Triamcinol 4-16 S pirit one) one) 00:00: - CHI 00 [facility] Dexamethaso Dexamethaso 2020-0 No 8mg Common ne ne 4-16 Spirit 00:00: - CHI 00 [facility] Triamcinolo Triamcinolo 2020-0 No 1{appli Triamcinol ne ne 4-16 cation} one Acetonide Acetonide 00:00: Acetonide 0.1 % 0.1 % 00 0.1 % Kenalog Kenalog 2020-0 No 80mg Common (Triamcinol (Triamcinol 4-16 S pirit one) one) 00:00: - CHI 00 [facility] Dexamethaso Dexamethaso 2020-0 No 8mg Common ne ne 4-16 Spirit 00:00: - CHI 00 [facility] Triamcinolo Triamcinolo 2020-0 No 1{appli Triamcinol ne ne 4-16 cation} one Acetonide Acetonide 00:00: Acetonide 0.1 % 0.1 % 00 0.1 % Kenalog Kenalog No 80mg Common (Triamcinol (Triamcinol 4-16 S pirit one) one) 00:00: - CHI [facility] Dexamethaso Dexamethaso No 8mg Common ne ne 4-16 Spirit 00:00: - CHI [facility] Albuterol Albuterol Yes Barbra 2 puffs as Common Sulfate HFA Sulfate HFA 9-11 [place] needed Spirit 00:00: - CHI [facility] loratadine Yes 10mg Take 10 mg U nivers (CLARITIN) 7-20 by mouth ity o f 10 mg 09:21: daily. [place] tablet Medical Branch thyroid Yes 60mg Take 60 mg Univ ers (ARMOUR 7-20 by mouth ity of THYROID) 60 09:21: every [place] mg tablet 52 morning. Medica l Branch beclomethas Yes Inhale 2 Un jamshid one 7-20 (two) ity of dipropionat 09:21: times [place] e (QVAR) 80 52 daily. Medica l mcg/actuati Branch on inhaler montelukast Yes 10mg Take 10 mg Univers (SINGULAIR) 7-20 by mouth ity of 10 mg 09:21: daily. [place] tablet Medical Branch ALBUTEROL Yes Inhale. Unive rs SULFATE 7-20 ity of (PROAIR HFA 09:21: [place] INHALEUC [facility] Medical Branch ibandronate Yes 150mg Take 150 U nivers (BONIVA) 7-20 mg by ity of 150 mg 09:21: mouth once [place] tablet 52 every Medical month. Branch clobetasol Yes Apply to Uni vers (TEMOVATE) 7-20 area(s) 2 ity of 0.05 % 09:21: (two) [place] ointment 52 times Medical daily. Branch ESTRADIOL Yes Insert Univer s (VAGIFEM 7-20 into ity of VAGINAL) 09:21: vagina. [address] PROGESTERON Yes Univer s E MISC 7-20 ity of 09:21: [address] pravastatin 2017-0 Yes 40mg Take 40 mg Univers (PRAVACHOL) 7-20 by mouth ity of 40 mg 09:21: at [place] tablet 52 bedtime. Medical Branch TRIAMCINOLO Yes [id number] APPLY TO Univers NE 6-29 AFFECTED ity of ACETONIDE 00:00: AREAS [place] 0.1 % cream 00 TWICE A Medic al DAY Branch TRIAMCINOLO Yes [id number] APPLY TO Univers NE 6-29 AFFECTED ity of ACETONIDE 00:00: AREAS [place] 0.1 % cream 00 TWICE A Medic al DAY Branch TRIAMCINOLO Yes [id number] APPLY TO Univers NE 6-29 AFFECTED ity of ACETONIDE 00:00: AREAS [place] 0.1 % cream 00 TWICE A Medic al DAY Branch fluocinonid Yes [id number] Apply 3-5 Univers e 0.05 % 3-21 drops to ity of solution 00:00: affected 00 areas in Medical scalp Branch BIDprn fluocinonid Yes [id number] Apply 3-5 Univers e 0.05 % 3-21 drops to ity of solution 00:00: affected areas in Medical scalp Branch BIDprn fluocinonid Yes [id number] Apply 3-5 Univers e 0.05 % 3-21 drops to ity of solution 00:00: affected 00 areas in Medical scalp Branch BIDprn Cyanocobala 2015-[address] Uni vers min 1-29 2,500 mcg ity of (VITAMIN 08:33: [place] the [place] B-12) 1,000 40 tongue. Medic al mcg Branch sublingual tablet Biotin 2015-03 Yes 1000ug Take 1,000 Uni vers (APPEAREX) 1-29 mcg by ity of 2,500 mcg 08:33: mouth. [place] Tab 40 Medical Branch triamcinolo 2015-03 Yes [id number] Apply to Univers ne 1-29 rash on ity of acetonide 00:00: neck and [place] (KENALOG) 00 ankles BID Medi mehrdad 0.1 % until Branch ointment clear, then prn triamcinolo 2015-03 Yes [id number] Apply to Univers ne 1-29 rash on ity of acetonide 00:00: neck and [place] (KENALOG) 00 ankles BID Medi mehrdad 0.1 % until Branch ointment clear, then prn triamcinolo 2015-03 Yes [id number] Apply to Univers ne 1-29 rash on ity of acetonide 00:00: neck and [place] (KENALOG) 00 ankles BID Medi mehrdad 0.1 % until Branch ointment clear, then prn fluocinonid Yes [id number] Apply to Univers e (LIDEX) 9-27 area(s) 2 ity o f 0.05 % 00:00: (two) [place] cream 00 times Medical daily. Do Branch not apply to face, groin or underarms. fluocinonid Yes [id number] Apply to Univers e (LIDEX) 9-27 area(s) 2 ity o f 0.05 % 00:00: (two) [place] cream 00 times Medical daily. Do Branch not apply to face, groin or underarms. fluocinonid Yes [id number] Apply to Univers e (LIDEX) 9-27 area(s) 2 ity o f 0.05 % 00:00: (two) [place] cream 00 times Medical daily. Do Branch not apply to face, groin or underarms. Montelukast Montelukast Yes Barbra 1 tablet Common Sodium Sodium [place] [facility] Vitamin Vitamin Yes Barbra 1 tablet Comm on B-12 ER B-12 ER [facility] DETAILER Thyroid DETAILER Thyroid Yes Barbra 1 tablet Common [place] on an Spirit empty - [facility] stomach [facility] Cetirizine Cetirizine Yes Barbra 1 tablet Common HCl HCl [facility] Qvar Qvar Yes Barbra 1-2 puffs Common RediHaler RediHaler [place] [facility] Alendronate Alendronate Yes Barbra 1 tablet Common Sodium Sodium [facility] Pravastatin Pravastatin Yes Barbra 1 tablet Common Sodium Sodium [place] [facility] Progesteron Progesteron No Progestero e 100 MG e 100 MG ne 100 MG Synthroid Synthroid No QD Synthroid 75 MCG 75 MCG 75 MCG Cetirizine Cetirizine No 1{table QD Cetirizine HCl 10 MG HCl 10 MG t} HCl 10 MG Arnuity Arnuity No Arnuity Ellipta 100 Ellipta 100 Ellipta MCG/ACT MCG/ACT 100 MCG/ACT Pravastatin Pravastatin No Pravastati Sodium 40 Sodium 40 n Sodium MG MG 40 MG Alendronate Alendronate No 1{table Alendronat Sodium 70 Sodium 70 t} e Sodium MG MG 70 MG Montelukast Montelukast No Montelukas Sodium 10 Sodium 10 t Sodium MG MG 10 MG Albuterol Albuterol No 2{puffs Albuterol Sulfate HFA Sulfate HFA _as_nee Sulfate 108 (90 108 (90 ded} HFA 108 Base) Base) (90 Base) MCG/ACT MCG/ACT MCG/ACT Vitamin Vitamin No 1{table QD Vitamin B-12 ER B-12 ER t} B-12 ER 2000 MCG 2000 MCG 2000 MCG Progesteron Progesteron No Progestero e 100 MG e 100 MG ne 100 MG Montelukast Montelukast No Montelukas Sodium 10 Sodium 10 t Sodium MG MG 10 MG Arnuity Arnuity No Arnuity Ellipta 100 Ellipta 100 Ellipta MCG/ACT MCG/ACT 100 MCG/ACT Synthroid Synthroid No QD Synthroid 75 MCG 75 MCG 75 MCG Cetirizine Cetirizine No 1{table QD Cetirizine HCl 10 MG HCl 10 MG t} HCl 10 MG Pravastatin Pravastatin No Pravastati Sodium 40 Sodium 40 n Sodium MG MG 40 MG Progesteron Progesteron No Progestero e 100 MG e 100 MG ne 100 MG Albuterol Albuterol No 2{puffs Albuterol Sulfate HFA Sulfate HFA _as_nee Sulfate 108 (90 108 (90 ded} HFA 108 Base) Base) (90 Base) MCG/ACT MCG/ACT MCG/ACT Vitamin Vitamin No 1{table QD Vitamin B-12 ER B-12 ER t} B-12 ER 2000 MCG 2000 MCG 2000 MCG Alendronate Alendronate No Alendronat Sodium 70 Sodium 70 e Sodium MG MG 70 MG Montelukast Montelukast No Montelukas Sodium 10 Sodium 10 t Sodium MG MG 10 MG Arnuity Arnuity No Arnuity Ellipta 100 Ellipta 100 Ellipta MCG/ACT MCG/ACT 100 MCG/ACT Synthroid Synthroid No QD Synthroid 75 MCG 75 MCG 75 MCG Cetirizine Cetirizine No 1{table QD Cetirizine HCl 10 MG HCl 10 MG t} HCl 10 MG Progesteron Progesteron No Progestero e 100 MG e 100 MG ne 100 MG Pravastatin Pravastatin No Pravastati Sodium 40 Sodium 40 n Sodium MG MG 40 MG Albuterol Albuterol No 2{puffs Albuterol Sulfate HFA Sulfate HFA _as_nee Sulfate 108 (90 108 (90 ded} HFA 108 Base) Base) (90 Base) MCG/ACT MCG/ACT MCG/ACT Vitamin Vitamin No 1{table QD Vitamin B-12 ER B-12 ER t} B-12 ER 2000 MCG 2000 MCG 2000 MCG Alendronate Alendronate No Alendronat Sodium 70 Sodium 70 e Sodium MG MG 70 MG Montelukast Montelukast No Montelukas Sodium 10 Sodium 10 t Sodium MG MG 10 MG Alendronate Alendronate No Alendronat Sodium 70 Sodium 70 e Sodium MG MG 70 MG Cetirizine Cetirizine No 1{table QD Cetirizine HCl 10 MG HCl 10 MG t} HCl 10 MG Synthroid Synthroid No QD Synthroid 75 MCG 75 MCG 75 MCG Pravastatin Pravastatin No Pravastati Sodium 40 Sodium 40 n Sodium MG MG 40 MG Vitamin Vitamin No 1{table QD Vitamin B-12 ER B-12 ER t} B-12 ER 2000 MCG 2000 MCG 2000 MCG Albuterol Albuterol No 2{puffs Albuterol Sulfate HFA Sulfate HFA _as_nee Sulfate 108 (90 108 (90 ded} HFA 108 Base) Base) (90 Base) MCG/ACT MCG/ACT MCG/ACT Progesteron Progesteron No Progestero e 100 MG e 100 MG ne 100 MG Montelukast Montelukast No Montelukas Sodium 10 Sodium 10 t Sodium MG MG 10 MG Alendronate Alendronate No Alendronat Sodium 70 Sodium 70 e Sodium MG MG 70 MG Cetirizine Cetirizine No 1{table QD Cetirizine HCl 10 MG HCl 10 MG t} HCl 10 MG Synthroid Synthroid No QD Synthroid 75 MCG 75 MCG 75 MCG Pravastatin Pravastatin No Pravastati Sodium 40 Sodium 40 n Sodium MG MG 40 MG Vitamin Vitamin No 1{table QD Vitamin B-12 ER B-12 ER t} B-12 ER 2000 MCG 2000 MCG 2000 MCG Albuterol Albuterol No 2{puffs Albuterol Sulfate HFA Sulfate HFA _as_nee Sulfate 108 (90 108 (90 ded} HFA 108 Base) Base) (90 Base) MCG/ACT MCG/ACT MCG/ACT Progesteron Progesteron No Progestero e 100 MG e 100 MG ne 100 MG Synthroid Synthroid No QD Synthroid 75 MCG 75 MCG 75 MCG Progesteron Progesteron No Progestero e 100 MG e 100 MG ne 100 MG Alendronate Alendronate No Alendronat Sodium 70 Sodium 70 e Sodium MG MG 70 MG Pravastatin Pravastatin No Pravastati Sodium 40 Sodium 40 n Sodium MG MG 40 MG Cetirizine Cetirizine No 1{table QD Cetirizine HCl 10 MG HCl 10 MG t} HCl 10 MG Albuterol Albuterol No 2{puffs Albuterol Sulfate HFA Sulfate HFA _as_nee Sulfate 108 (90 108 (90 ded} HFA 108 Base) Base) (90 Base) MCG/ACT MCG/ACT MCG/ACT Vitamin Vitamin No 1{table QD Vitamin B-12 ER B-12 ER t} B-12 ER 2000 MCG 2000 MCG 2000 MCG Montelukast Montelukast No Montelukas Sodium 10 Sodium 10 t Sodium MG MG 10 MG Synthroid Synthroid No QD Synthroid 75 MCG 75 MCG 75 MCG Progesteron Progesteron No Progestero e 100 MG e 100 MG ne 100 MG Alendronate Alendronate No Alendronat Sodium 70 Sodium 70 e Sodium MG MG 70 MG Pravastatin Pravastatin No Pravastati Sodium 40 Sodium 40 n Sodium MG MG 40 MG Cetirizine Cetirizine No 1{table QD Cetirizine HCl 10 MG HCl 10 MG t} HCl 10 MG Albuterol Albuterol No 2{puffs Albuterol Sulfate HFA Sulfate HFA _as_nee Sulfate 108 (90 108 (90 ded} HFA 108 Base) Base) (90 Base) MCG/ACT MCG/ACT MCG/ACT Vitamin Vitamin No 1{table QD Vitamin B-12 ER B-12 ER t} B-12 ER 2000 MCG 2000 MCG 2000 MCG Montelukast Montelukast No Montelukas Sodium 10 Sodium 10 t Sodium MG MG 10 MG Montelukast Montelukast No Montelukas Sodium 10 Sodium 10 t Sodium MG MG 10 MG Vitamin Vitamin No 1{table QD Vitamin B-12 ER B-12 ER t} B-12 ER 2000 MCG 2000 MCG 2000 MCG Synthroid Synthroid No QD Synthroid 75 MCG 75 MCG 75 MCG Progesteron Progesteron No Progestero e 100 MG e 100 MG ne 100 MG Cetirizine Cetirizine No 1{table QD Cetirizine HCl 10 MG HCl 10 MG t} HCl 10 MG Albuterol Albuterol No 2{puffs Albuterol Sulfate HFA Sulfate HFA _as_nee Sulfate 108 (90 108 (90 ded} HFA 108 Base) Base) (90 Base) MCG/ACT MCG/ACT MCG/ACT Pravastatin Pravastatin No Pravastati Sodium 40 Sodium 40 n Sodium MG MG 40 MG Alendronate Alendronate No Alendronat Sodium 70 Sodium 70 e Sodium MG MG 70 MG Vitamin Vitamin No 1{table QD Vitamin B-12 ER B-12 ER t} B-12 ER 2000 MCG 2000 MCG 2000 MCG Pravastatin Pravastatin No 1{table QD Pravastati Sodium 40 Sodium 40 t} n Sodium MG MG 40 MG Progesteron Progesteron No Progestero e 100 MG e 100 MG ne 100 MG Albuterol Albuterol No 2{puffs Albuterol Sulfate HFA Sulfate HFA _as_nee Sulfate 108 (90 108 (90 ded} HFA 108 Base) Base) (90 Base) MCG/ACT MCG/ACT MCG/ACT Cetirizine Cetirizine No 1{table QD Cetirizine HCl 10 MG HCl 10 MG t} HCl 10 MG Alendronate Alendronate No Alendronat Sodium 70 Sodium 70 e Sodium MG MG 70 MG Montelukast Montelukast No Montelukas Sodium 10 Sodium 10 t Sodium MG MG 10 MG Synthroid Synthroid No QD Synthroid 75 MCG 75 MCG 75 MCG Vitamin Vitamin No 1{table QD Vitamin B-12 ER B-12 ER t} B-12 ER 2000 MCG 2000 MCG 2000 MCG Pravastatin Pravastatin No 1{table QD Pravastati Sodium 40 Sodium 40 t} n Sodium MG MG 40 MG Progesteron Progesteron No Progestero e 100 MG e 100 MG ne 100 MG Albuterol Albuterol No 2{puffs Albuterol Sulfate HFA Sulfate HFA _as_nee Sulfate 108 (90 108 (90 ded} HFA 108 Base) Base) (90 Base) MCG/ACT MCG/ACT MCG/ACT Cetirizine Cetirizine No 1{table QD Cetirizine HCl 10 MG HCl 10 MG t} HCl 10 MG Arnuity Arnuity No Arnuity Ellipta 100 Ellipta 100 Ellipta MCG/ACT MCG/ACT 100 MCG/ACT Montelukast Montelukast No Montelukas Sodium 10 Sodium 10 t Sodium MG MG 10 MG Alendronate Alendronate No Alendronat Sodium 70 Sodium 70 e Sodium MG MG 70 MG Synthroid Synthroid No QD Synthroid 75 MCG 75 MCG 75 MCG Montelukast Montelukast No Montelukas Sodium 10 Sodium 10 t Sodium MG MG 10 MG Cetirizine Cetirizine No 1{table QD Cetirizine HCl 10 MG HCl 10 MG t} HCl 10 MG Progesteron Progesteron No Progestero e 100 MG e 100 MG ne 100 MG Vitamin Vitamin No 1{table QD Vitamin B-12 ER B-12 ER t} B-12 ER 2000 MCG 2000 MCG 2000 MCG Arnuity Arnuity No Arnuity Ellipta 100 Ellipta 100 Ellipta MCG/ACT MCG/ACT 100 MCG/ACT Synthroid Synthroid No QD Synthroid 75 MCG 75 MCG 75 MCG Alendronate Alendronate No Alendronat Sodium 70 Sodium 70 e Sodium MG MG 70 MG Pravastatin Pravastatin No Pravastati Sodium 40 Sodium 40 n Sodium MG MG 40 MG Albuterol Albuterol No 2{puffs Albuterol Sulfate HFA Sulfate HFA _as_nee Sulfate 108 (90 108 (90 ded} HFA 108 Base) Base) (90 Base) MCG/ACT MCG/ACT MCG/ACT Alendronate Alendronate No Alendronat Sodium 70 Sodium 70 e Sodium MG MG 70 MG Cetirizine Cetirizine No 1{table QD Cetirizine HCl 10 MG HCl 10 MG t} HCl 10 MG Vitamin Vitamin No 1{table QD Vitamin B-12 ER B-12 ER t} B-12 ER 2000 MCG 2000 MCG 2000 MCG Synthroid Synthroid No QD Synthroid 75 MCG 75 MCG 75 MCG Montelukast Montelukast No Montelukas Sodium 10 Sodium 10 t Sodium MG MG 10 MG Arnuity Arnuity No Arnuity Ellipta 100 Ellipta 100 Ellipta MCG/ACT MCG/ACT 100 MCG/ACT Pravastatin Pravastatin No QD Pravastati Sodium 40 Sodium 40 n Sodium MG MG 40 MG Progesteron Progesteron No Progestero e 100 MG e 100 MG ne 100 MG Albuterol Albuterol No 2{puffs Albuterol Sulfate HFA Sulfate HFA _as_nee Sulfate 108 (90 108 (90 ded} HFA 108 Base) Base) (90 Base) MCG/ACT MCG/ACT MCG/ACT Alendronate Alendronate No Alendronat Sodium 70 Sodium 70 e Sodium MG MG 70 MG Cetirizine Cetirizine No 1{table QD Cetirizine HCl 10 MG HCl 10 MG t} HCl 10 MG Synthroid Synthroid No QD Synthroid 50 MCG 50 MCG 50 MCG Vitamin Vitamin No 1{table QD Vitamin B-12 ER B-12 ER t} B-12 ER 2000 MCG 2000 MCG 2000 MCG Montelukast Montelukast No Montelukas Sodium 10 Sodium 10 t Sodium MG MG 10 MG Arnuity Arnuity No Arnuity Ellipta 100 Ellipta 100 Ellipta MCG/ACT MCG/ACT 100 MCG/ACT Pravastatin Pravastatin No QD Pravastati Sodium 40 Sodium 40 n Sodium MG MG 40 MG Progesteron Progesteron No Progestero e 100 MG e 100 MG ne 100 MG Albuterol Albuterol No 2{puffs Albuterol Sulfate HFA Sulfate HFA _as_nee Sulfate 108 (90 108 (90 ded} HFA 108 Base) Base) (90 Base) MCG/ACT MCG/ACT MCG/ACT Pravastatin Pravastatin No QD Pravastati Sodium 40 Sodium 40 n Sodium MG MG 40 MG Cetirizine Cetirizine No 1{table QD Cetirizine HCl 10 MG HCl 10 MG t} HCl 10 MG Synthroid Synthroid No QD Synthroid 50 MCG 50 MCG 50 MCG Vitamin Vitamin No 1{table QD Vitamin B-12 ER B-12 ER t} B-12 ER 2000 MCG 2000 MCG 2000 MCG Montelukast Montelukast No Montelukas Sodium 10 Sodium 10 t Sodium MG MG 10 MG Alendronate Alendronate No Alendronat Sodium 70 Sodium 70 e Sodium MG MG 70 MG Progesteron Progesteron No Progestero e 100 MG e 100 MG ne 100 MG Arnuity Arnuity No Arnuity Ellipta 100 Ellipta 100 Ellipta MCG/ACT MCG/ACT 100 MCG/ACT Albuterol Albuterol No 2{puffs Albuterol Sulfate HFA Sulfate HFA _as_nee Sulfate 108 (90 108 (90 ded} HFA 108 Base) Base) (90 Base) MCG/ACT MCG/ACT MCG/ACT Pravastatin Pravastatin No QD Pravastati Sodium 40 Sodium 40 n Sodium MG MG 40 MG Synthroid Synthroid No QD Synthroid 75 MCG 75 MCG 75 MCG Vitamin Vitamin No 1{table QD Vitamin B-12 ER B-12 ER t} B-12 ER 2000 MCG 2000 MCG 2000 MCG Cetirizine Cetirizine No 1{table QD Cetirizine HCl 10 MG HCl 10 MG t} HCl 10 MG Montelukast Montelukast No Montelukas Sodium 10 Sodium 10 t Sodium MG MG 10 MG Alendronate Alendronate No Alendronat Sodium 70 Sodium 70 e Sodium MG MG 70 MG Progesteron Progesteron No Progestero e 100 MG e 100 MG ne 100 MG Arnuity Arnuity No Arnuity Ellipta 100 Ellipta 100 Ellipta MCG/ACT MCG/ACT 100 MCG/ACT Albuterol Albuterol No 2{puffs Albuterol Sulfate HFA Sulfate HFA _as_nee Sulfate 108 (90 108 (90 ded} HFA 108 Base) Base) (90 Base) MCG/ACT MCG/ACT MCG/ACT Pravastatin Pravastatin No QD Pravastati Sodium 40 Sodium 40 n Sodium MG MG 40 MG Synthroid Synthroid No QD Synthroid 75 MCG 75 MCG 75 MCG Vitamin Vitamin No 1{table QD Vitamin B-12 ER B-12 ER t} B-12 ER 2000 MCG 2000 MCG 2000 MCG Cetirizine Cetirizine No 1{table QD Cetirizine HCl 10 MG HCl 10 MG t} HCl 10 MG Alendronate Alendronate No Alendronat Sodium 70 Sodium 70 e Sodium MG MG 70 MG Arnuity Arnuity No Arnuity Ellipta 100 Ellipta 100 Ellipta MCG/ACT MCG/ACT 100 MCG/ACT Montelukast Montelukast No Montelukas Sodium 10 Sodium 10 t Sodium MG MG 10 MG Progesteron Progesteron No Progestero e 100 MG e 100 MG ne 100 MG Albuterol Albuterol No 2{puffs Albuterol Sulfate HFA Sulfate HFA _as_nee Sulfate 108 (90 108 (90 ded} HFA 108 Base) Base) (90 Base) MCG/ACT MCG/ACT MCG/ACT Pravastatin Pravastatin No QD Pravastati Sodium 40 Sodium 40 n Sodium MG MG 40 MG Synthroid Synthroid No QD Synthroid 75 MCG 75 MCG 75 MCG Vitamin Vitamin No 1{table QD Vitamin B-12 ER B-12 ER t} B-12 ER 2000 MCG 2000 MCG 2000 MCG Cetirizine Cetirizine No 1{table QD Cetirizine HCl 10 MG HCl 10 MG t} HCl 10 MG Montelukast Montelukast No Montelukas Sodium 10 Sodium 10 t Sodium MG MG 10 MG Alendronate Alendronate No Alendronat Sodium 70 Sodium 70 e Sodium MG MG 70 MG Progesteron Progesteron No Progestero e 100 MG e 100 MG ne 100 MG Arnuity Arnuity No Arnuity Ellipta 100 Ellipta 100 Ellipta MCG/ACT MCG/ACT 100 MCG/ACT Albuterol Albuterol No 2{puffs Albuterol Sulfate HFA Sulfate HFA _as_nee Sulfate 108 (90 108 (90 ded} HFA 108 Base) Base) (90 Base) MCG/ACT MCG/ACT MCG/ACT Synthroid Synthroid No QD Synthroid 75 MCG 75 MCG 75 MCG Cetirizine Cetirizine No 1{table QD Cetirizine HCl 10 MG HCl 10 MG t} HCl 10 MG Arnuity Arnuity No Arnuity Ellipta 100 Ellipta 100 Ellipta MCG/ACT MCG/ACT 100 MCG/ACT Pravastatin Pravastatin No Pravastati Sodium 40 Sodium 40 n Sodium MG MG 40 MG Alendronate Alendronate No 1{table Alendronat Sodium 70 Sodium 70 t} e Sodium MG MG 70 MG Montelukast Montelukast No Montelukas Sodium 10 Sodium 10 t Sodium MG MG 10 MG Albuterol Albuterol No 2{puffs Albuterol Sulfate HFA Sulfate HFA _as_nee Sulfate 108 (90 108 (90 ded} HFA 108 Base) Base) (90 Base) MCG/ACT MCG/ACT MCG/ACT Vitamin Vitamin No 1{table QD Vitamin B-12 ER B-12 ER t} B-12 ER 2000 MCG 2000 MCG 2000 MCG Arnuity Arnuity 2021- No QD Arnuity Ellipta 100 Ellipta 100 04-25 Ellipta MCG/ACT MCG/ACT 00:00 100 :00 MCG/ACT Arnuity Arnuity 2021- No QD Arnuity Ellipta 100 Ellipta 100 04-25 Ellipta MCG/ACT MCG/ACT 00:00 100 :00 MCG/ACT Arnuity Arnuity 2021- No QD Arnuity Ellipta 100 Ellipta 100 04-25 Ellipta MCG/ACT MCG/ACT 00:00 100 :00 MCG/ACT Arnuity Arnuity 2021- No QD Arnuity Ellipta 100 Ellipta 100 04-25 Ellipta MCG/ACT MCG/ACT 00:00 100 :00 MCG/ACT Arnuity Arnuity 2021- No QD Arnuity Ellipta 100 Ellipta 100 04-25 Ellipta MCG/ACT MCG/ACT 00:00 100 :00 MCG/ACT Immunizations Ordered Immunization Filled Immunization Date Status Commen ts Source Name Name Bupivicaine [place] Bupivicaine [place] 2019-12-11 Completed [facility] Bupivicaine [place] Bupivicaine [place] 2019-12-11 Completed [facility] 11:29:00 - [facility] Kenalog Kenalog 2019-12-11 Completed [facility] (Triamcinolone) (Triamcinolone) 11:28:00 [facility] Kenalog Kenalog 2019-12-11 Completed [facility] (Triamcinolone) (Triamcinolone) 11:28:00 [facility] Flucelvax - single Flucelvax - single 2019-12-03 Completed [facility] dose syringe dose syringe 09:35:00 - [facility] Flucelvax - single Flucelvax - single 2019-12-03 Completed [facility] dose syringe dose syringe 09:35:00 - [facility] Flucelvax - single Flucelvax - single 2019-12-03 Completed [facility] dose syringe dose syringe 09:35:00 - [facility] Flucelvax - single Flucelvax - single 2019-12-03 Completed [facility] dose syringe dose syringe 09:35:00 - [facility] Flucelvax - single Flucelvax - single 2019-12-03 Completed [facility] dose syringe dose syringe 09:35:00 - [facility] Flucelvax - single Flucelvax - single 2019-12-03 Completed [facility] dose syringe dose syringe 09:35:00 - [facility] Flucelvax - single Flucelvax - single 2019-12-03 Completed [facility] dose syringe dose syringe 09:35:00 - [facility] Flucelvax - single Flucelvax - single 2019-12-03 Completed [facility] dose syringe dose syringe 09:35:00 - [facility] Flucelvax - single Flucelvax - single 2019-12-03 Completed [facility] dose syringe dose syringe 09:35:00 - [facility] Flucelvax - single Flucelvax - single 2019-12-03 Completed [facility] dose syringe dose syringe 09:35:00 - [facility] Flucelvax - single Flucelvax - single 2019-12-03 Completed [facility] dose syringe dose syringe 09:35:00 - [facility] Flucelvax - single Flucelvax - single 2019-12-03 Completed [facility] dose syringe dose syringe 09:35:00 - [facility] Flucelvax - single Flucelvax - single 2019-12-03 Completed [facility] dose syringe dose syringe 09:35:00 - [facility] Flucelvax - single Flucelvax - single 2019-12-03 Completed [facility] dose syringe dose syringe 09:35:00 - [facility] Flucelvax - single Flucelvax - single 2019-12-03 Completed [facility] dose syringe dose syringe 09:35:00 - [facility] Flucelvax - single Flucelvax - single 2019-12-03 Completed [facility] dose syringe dose syringe 09:35:00 - [facility] Flucelvax - single Flucelvax - single 2019-12-03 Completed [facility] dose syringe dose syringe 09:35:00 - [facility] Flucelvax - single Flucelvax - single 2019-12-03 Completed [facility] dose syringe dose syringe 09:35:00 - [facility] Kenalog Kenalog 2019-06-22 Completed [facility] (Triamcinolone) (Triamcinolone) 09:55:00 [facility] Dexamethasone Dexamethasone 2019-06-22 Completed [facility] Kenalog Kenalog 2019-06-22 Completed [facility] (Triamcinolone) (Triamcinolone) 09:55:00 - [facility] Dexamethasone Dexamethasone 2019-06-22 [facility] Flucelvax - multidose Flucelvax - 2018-11-10 [facility] vial multidose vial 14:03:00 - [facility] Flucelvax - multidose Flucelvax - 2018-11-10 Completed [facility] vial multidose vial 14:03:00 - [facility] Flucelvax - multidose Flucelvax - 2018-11-10 Completed [facility] v[facility] multidose vial 14:03:00 - [facility] Flucelvax - multidose Flucelvax - 2018-11-10 Completed [facility] vial multidose vial 14:03:00 - [facility] Flucelvax - multidose Flucelvax - 2018-11-10 Completed [facility] vial multidose vial 14:03:00 - [facility] Flucelvax - multidose Flucelvax - 2018-11-10 Completed [facility] vial multidose vial 14:03:00 - [facility] Flucelvax - multidose Flucelvax - 2018-11-10 Completed [facility] vial multidose vial 14:03:00 - [facility] Flucelvax - multidose Flucelvax - 2018-11-10 Completed [facility] vial multidose vial 14:03:00 - [facility] Flucelvax - multidose Flucelvax - 2018-11-10 Completed [facility] vial multidose vial 14:03:00 - [facility] Flucelvax - multidose Flucelvax - 2018-11-10 Completed [facility] vial multidose vial 14:03:00 - [facility] Flucelvax - multidose Flucelvax - 2018-11-10 Completed [facility] vial multidose vial 14:03:00 - [facility] Flucelvax - multidose Flucelvax - 2018-11-10 Completed [facility] vial multidose vial 14:03:00 - [facility] Flucelvax - multidose Flucelvax - 2018-11-10 Completed [facility] vial multidose vial 14:03:00 - [facility] Flucelvax - multidose Flucelvax - 2018-11-10 Completed [facility] vial multidose vial 14:03:00 - [facility] Flucelvax - multidose Flucelvax - 2018-11-10 Completed [facility] vial multidose vial 14:03:00 - [facility] Flucelvax - multidose Flucelvax - 2018-11-10 Completed [facility] vial multidose vial 14:03:00 - [facility] Flucelvax - multidose Flucelvax - 2018-11-10 Completed [facility] vial multidose vial 14:03:00 - [facility] Flucelvax - multidose Flucelvax - 2018-11-10 Completed [facility] vial multidose vial 14:03:00 - [facility] Vital Signs Vital Name Observation Time Observation Value Comments Source height 2021-10-16 09:20:00 63 [in_i] [facility] weight 2021-10-16 09:20:00 114.2 [lb_av] [facility] temperature 2021-10-16 09:20:00 97.0 [degF] [facility] bmi 2021-10-16 09:20:00 20.23 kg/m2 [facility] oximetry 2021-10-16 09:20:00 98 % [facility] respiratory rate 2021-10-16 09:20:00 16 /min [facility] blood pressure 2021-10-16 09:20:00 106 mm[Hg] [facility] blood pressure 2021-10-16 09:20:00 59 mm[Hg] [facility] - diastolic [facility] height 2021-08-29 09:40:00 63 [in_i] [facility] weight 2021-08-29 09:40:00 115 [lb_av] [facility] temperature 2021-08-29 09:40:00 97.8 [degF] [facility] bmi 2021-08-29 09:40:00 20.37 kg/m2 [facility] oximetry 2021-08-29 09:40:00 97 % [facility] respiratory rate 2021-08-29 09:40:00 16 /min [facility] on [facility] blood pressure 2021-08-29 09:40:00 116 mm[Hg] [facility] - systolic [facility] blood pressure 2021-08-29 09:40:00 57 mm[Hg] [facility] - diastolic [facility] Systolic blood 2021-06-18 17:18:00 116 mm[Hg] Univer sity of pressure [facility] Diastolic blood 2021-06-18 17:18:00 77 mm[Hg] Unive rsity of pressure [facility] Heart rate 2021-06-18 17:18:00 74 /min [facility] Body temperature 2021-06-18 17:18:00 36.61 Melonie Univ ersity [facility] Respiratory rate 2021-06-18 17:18:00 16 /[facility] 2021-06-18 17:18:00 160 cm [facility]i ty [facility] Body weight 2021-06-18 17:18:00 [facility] 2021-06-18 17:18:00 20.37 kg/m2 [facility] Oxygen saturation in 2021-06-18 17:18:00 100 /min [facility] Arterial blood by [facility] Pulse oximetry Branch height 2021-04-24 16:20:00 63 [in_i] [facility] weight 2021-04-24 16:20:00 120 [lb_av] [facility] temperature 2021-04-24 16:20:00 99.7 [degF] [facility] bmi 2021-04-24 16:20:00 21.25 kg/m2 [facility] height 2021-04-01 09:40:00 63 [in_i] [facility] weight 2021-04-01 09:40:00 120.0 [lb_av] [facility] temperature 2021-04-01 09:40:00 97.9 [degF] [facility] bmi 2021-04-01 09:40:00 21.25 kg/m2 [facility] oximetry 2021-04-01 09:40:00 99 % [facility] respiratory rate 2021-04-01 09:40:00 16 /min [facility] blood pressure 2021-04-01 09:40:00 100 mm[Hg] Common [facility] systolic [facility] blood pressure 2021-04-01 09:40:00 65 mm[Hg] [facility] diastolic [facility] Procedures Procedure Date / Time Performed Performing Clinician [facility] ASSIGNMENT OF BENEFITS 2021-06-18 17:10:42 Doctor Unassigned, No [facility] Encounters Start End Encounter Admission Attending Care Care Encounter Source Date/Time Date/Time Type Type Clinicians Facility Department ID 2022-02-02 Outpatient [facility] [id number] [place] 09:44:33 [id number] Health 2021-10-16 Outpatient SHADE Hammer [facility] [id number] [facility] 09:05:00 Barbra [id number] [facility] 2021-10-14 [facility] [id number] 09:31:00 Barbra [id number] [facility] 2021-05-05 [facility] [id number] 10:18:01 Barbra [facility] 2021-04-24 Outpatient [place], STLMLC ST[facility]C [id number] [facility] 16:22:00 Barbra [facility] 2021-04-02 Outpatient [place], STLMLC ST[facility]C [id number] [facility] 12:28:39 Barbra [id number] [facility] 2021-04-02 Outpatient [place], STLMLC STLMLC [id number] [facility] 12:02:24 Barbra [id number] [facility] 2021-04-02 Outpatient [place], STLMLC STLMLC [id number] Common 11:51:47 Barbra [id number] [facility] 2021-04-02 Outpatient Pomeroy, STLMLC STLMLC [id number] Common 11:46:12 Barbra [id number] [facility] 2021-04-02 Outpatient Pomeroy, STLMLC STLMLC [id number] Common 11:05:47 Barbra [id number] [facility] 2022-02-19 2022-02-19 (TEL) STLMLC STLMLC [id number] Co mmon 00:00:00 00:00:00 [facility] 2022-02-03 2022-02-03 Outpatient DAVID, [facility] [id number] [facility] 05:22:00 23:59:00 KARINA 2021-11-25 2021-11-25 (TEL) STLMLC STLMLC [id number] Co mmon 00:00:00 00:00:00 [facility] 2021-11-24 2021-11-24 (TEL) STLMLC STLMLC [id number] Co mmon 00:00:00 00:00:00 [facility] 2021-10-24 2021-10-24 (TEL) STLMLC STLMLC [id number] Co mmon 00:00:00 00:00:00 [facility] 2021-10-17 2021-10-17 TOBIAS Pascal [id number] [facility] 00:00:00 00:00:00 Recommendo [id number] it y of [place] [id number] Shabbir as ELOY?BLEA [id number] [address] MEDICAL OFFICE BUILDING 2021-10-16 2021-10-16 OFFICE STLMLC STLMLC [id number] Co mmon 00:00:00 00:00:00 VISIT EST Spir it PT LEVEL 3 [facility] 2021-10-02 2021-10-02 Outpatient DAYLIN_CRISTOPHER TOBAR [facility] [id number] 00:00:00 00:00:00 SSA 0728 da [facility] 2021-09-29 2021-09-29 (TEL) STLMLC STLMLC [id number] Co mmon 00:00:00 00:00:00 [facility] 2021-09-05 2021-09-05 (TEL) STLMLC STLMLC [id number] Co mmon 00:00:00 00:00:00 [facility] 2021-08-29 2021-08-29 OFFICE STLMLC STLMLC [id number] Co mmon 00:00:00 00:00:00 VISIT EST Spir it PT LEVEL 3 [facility] 2021-06-18 2021-06-18 Urgent [facility] [id number] [facility] 12:20:00 12:43:18 [facility] [id number] it y of [place] [id number] Shabbir as ELOY?BLEA [id number] [address] MEDICAL OFFICE BUILDING 2021-06-18 2021-06-18 [facility] [id number] [facility] 12:20:00 12:43:18 RANIA ity of [facility] 2021-06-18 2021-06-18 Orders Doctor SMITH [id number] [facility] 00:00:00 00:00:00 Only Unassigned, AJ [id number] ity of [place] [facility] [id number] Shabbir as [id number] [facility] [address] 2021-05-09 2021-05-09 (TEL) STLMLC STLMLC [id number] Co mmon 00:00:00 00:00:00 [facility] 2021-04-24 2021-04-24 OL DIG E/M STLMLC STLMLC [id number] Common 00:00:00 00:00:00 SVC 5-10 Spiri t [facility] 2021-04-23 2021-04-23 (TEL) STLMLC STLMLC [id number] Co mmon 00:00:00 00:00:00 [facility] 2021-04-04 2021-04-04 (TEL) STLMLC STLMLC [id number] Co mmon 00:00:00 00:00:00 [facility] 2021-04-01 2021-04-01 OFFICE STLMLC STLMLC [id number] Co mmon 00:00:00 00:00:00 VISIT [facility] PT - CHI LEVEL 4 [facility] 2021-02-20 2021-02-20 (TEL) STLMLC STLMLC [id number] Co mmon 00:00:00 00:00:00 [facility] 2021-01-31 2021-01-31 (TEL) STLMLC STLMLC [id number] Co mmon 00:00:00 00:00:00 [facility] 2020-12-20 2020-12-20 (TEL) STLMLC STLMLC [id number] Co mmon 00:00:00 00:00:00 [facility] 2020-12-20 2020-12-20 OFFICE STLMLC STLMLC [id number] Co mmon 00:00:00 00:00:00 VISIT [facility] PT - CHI LEVEL 1 [facility] 2020-11-22 2020-11-22 Outpatient STLMLC STLMLC [id number] Common 00:00:00 00:00:00 [facility] 2020-11-15 2020-11-15 Outpatient STLMLC STLMLC [id number] Common 00:00:00 00:00:00 [facility] 2020-10-09 2020-10-09 Outpatient STLMLC STLMLC [id number] Common 00:00:00 00:00:00 [facility] 2020-10-09 2020-10-09 Outpatient STLMLC STLMLC [id number] Common 00:00:00 00:00:00 [facility] 2020-10-09 2020-10-09 Outpatient STLMLC STLMLC [id number] Common 00:00:00 00:00:00 [facility] 2020-07-16 2020-07-16 Outpatient STLMLC STLMLC [id number] Common 00:00:00 00:00:00 [facility] 2020-07-09 2020-07-09 Outpatient STLMLC STLMLC [id number] Common 00:00:00 00:00:00 [facility] 2020-06-19 2020-06-19 Outpatient STLMLC STLMLC [id number] Common 00:00:00 00:00:00 [facility] 2020-04-18 2020-04-18 Outpatient STLMLC STLMLC [id number] Common 00:00:00 00:00:00 [facility] 2020-04-12 2020-04-12 Outpatient STLMLC STLMLC [id number] Common 00:00:00 00:00:00 [facility] 2020-03-04 2020-03-04 Outpatient STLMLC STLMLC [id number] Common 00:00:00 00:00:00 [facility] 2020-02-22 2020-02-22 Outpatient STLMLC STLMLC [id number] Common 00:00:00 00:00:00 [facility] 2020-02-14 2020-02-14 Outpatient STLMLC STLMLC [id number] Common 00:00:00 00:00:00 [facility] 2020-02-12 2020-02-12 Outpatient STLMLC STLMLC [id number] Common 00:00:00 00:00:00 [facility] 2020-01-17 2020-01-17 Outpatient STLMLC STLMLC [id number] Common 00:00:00 00:00:00 [facility] 2020-01-11 2020-01-11 Outpatient STLMLC STLMLC [id number] Common 00:00:00 00:00:00 [facility] 2019-12-11 2019-12-11 Outpatient STLMLC STLMLC [id number] Common 00:00:00 00:00:00 [facility] 2019-10-11 2019-10-11 [facility] [id number] Common 10:40:00 10:40:[address] [facility] 2019-10-06 2019-10-06 [facility] [id number] Common 16:26:00 16:26:[address] [facility] 2019-09-20 2019-09-20 [facility] [id number] Common 16:59:00 16:59:[address] [facility] 2019-09-15 2019-09-15 [facility] [id number] Common 16:06:00 16:06:[address] [facility] 2019-08-16 2019-08-16 [facility] [id number] Common 14:40:00 14:40:[address] [facility] 2019-06-22 2019-06-22 [facility] [id number] Common 09:40:00 09:40:[address] [facility] 2019-05-22 2019-05-22 [facility] [id number] Common 13:44:00 13:44:[address] [facility] 2019-05-18 2019-05-18 [facility] [id number] Common 13:50:00 13:50:[address] [facility] 2019-04-12 2019-04-12 [facility] [id number] Common 10:40:00 10:40:[address] [facility] 2019-01-11 2019-01-11 [facility] [id number] Common 09:40:00 09:40:[address] [facility] 2018-12-15 2018-12-15 [facility] [id number] Common 13:46:00 13:46:[address] [facility] 2018-12-13 2018-12-13 [facility] [id number] Common 16:54:00 16:54:[address] [facility] 2018-12-06 2018-12-06 [facility] [id number] Common 18:08:00 18:08:[address] [facility] 2018-12-06 2018-12-06 [facility] [id number] Common 13:04:00 13:04:[address] [facility] 2018-11-17 2018-11-17 [facility] [id number] Common 10:00:00 10:00:00 t [facility] 2018-11-16 2018-11-16 [facility] [id number] Common 14:00:00 14:00:[address] [facility] 2018-11-02 2018-11-02 [facility] [id number] Common 15:54:00 15:54:00 t Urgent Ur[facility] 2018-10-31 2018-10-31 [facility] [id number] Common 09:16:00 09:16:[address] [facility] 2018-10-14 2018-10-14 [facility] [id number] Common 09:56:00 09:56:[address] [facility] 2018-10-11 2018-10-11 Out[facility] [id number] Common 09:18:00 09:18:[address] [facility] 2018-10-07 2018-10-07 [facility] [id number] Common 12:52:00 12:52:[address] [facility] 2018-09-23 2018-09-23 [facility] [id number] Common 09:30:00 09:30:00 t [facility] 2018-09-22 2018-09-22 [facility] [id number] Common 14:40:00 14:40:[address] [facility] 2018-09-12 2018-09-12 [facility] [id number] Common 14:40:00 14:40:[address] [facility] 2018-07-21 2018-07-21 Out[facility] [id number] Common 21:54:00 21:54:[address] [facility] 2018-07-06 2018-07-06 [facility] [id number] Common 14:29:00 14:29:[address] [facility] 2018-07-04 2018-07-04 [facility] [id number] Common 10:29:00 10:29:[address] [facility] 2018-03-14 2018-03-14 Out[facility] [id number] Common 14:30:00 14:30:[address] [facility] 2018-03-09 2018-03-09 Out[facility] [id number] Common 09:00:00 09:00:00 t Bone Bone [facility] Sp[facility] t and [facility] 2018-02-09 2018-02-09 Outpatient David Linder [id number] Common 13:30:00 13:30:00 t Bone Bone and Spiri t and [facility] Results Test Description Test Time Test Comments Results Result Comments Source SARS-COV 2 Antigen SARS-COV 2 Antigen
--- NOTE | 2022-02-25 09:42 | EDPHYS ---
Physician Documentation [facility] Name: Damaris Guerrero Age: 66 yrs Sex: Female : 1955 Arrival Date: 02/25/2022 Time: 08:52 Bed 6 Private MD: BRENNA Physician Francisco Huizar HPI: 02/25 09:03 This 66 yrs old Female presents to ER via Unassigned with complaints of POST SURGICAL rt EYE PROBLEM. 09:03 The patient is experiencing post operative complication. Onset: The symptoms/episode rt began/occurred this morning. Duration: the symptoms are continuous. Aggravated by nothing. Alleviated by nothing. Associated signs and symptoms: Pertinent positives: None. Pertinent negatives:. Severity of symptoms: At their worst the symptoms were mild. Patient had a recent surgical procedure done by an ocular plastic surgeon 3 weeks ago. Patient states that she woke up this morning and had a stitch coming out of the eyelid, the upper and lower eyelid portion. Denies any pain, change of vision. Denies other acute complaints at this time, symptoms are moderate in severity, no other aggravating or alleviating factors.. Historical: - Allergies: 09:05 PENICILLINS; aa5 - PMHx: 09:05 Asthma; Hypercholesterolemia; Hypothyroidism; aa5 09:06 Osteoporosis; aa5 - PSHx: 09:06 [facility] Eye Sx February 03, 2022 for Ptosis of eyelid, epiphora of both eyes, and ectropion aa5 of lower eyelids; - Immunization history:: Adult Immunizations unknown. - Social history:: Smoking status: Patient denies any tobacco usage or history of. - Family history:: not pertinent. ROS: 09:03 Constitutional: Negative for fever, chills, and weight loss, Cardiovascular: Negative rt for chest pain, palpitations, and edema, Respiratory: Negative for shortness of breath, cough, wheezing, and pleuritic chest pain, Abdomen/GI: Negative for abdominal pain, nausea, vomiting, diarrhea, and constipation, MS/Extremity: Negative for injury and deformity, Skin: Negative for injury, rash, and discoloration, Neuro: Negative for headache, weakness, numbness, tingling, and seizure, Psych: Negative for depression, anxiety, suicide ideation, homicidal ideation, and hallucinations. 09:03 Eyes: 09:03 Eyes: Positive for left eye surgical complication, Negative for acute changes. 09:03 ENT: Positive for Exam: 09:03 Constitutional: This is a well developed, well nourished patient who is awake, alert, rt and in no acute distress. Head/Face: Normocephalic, atraumatic. ENT: Nares patent. No nasal discharge, no septal abnormalities noted. Tympanic membranes are normal and external auditory canals are clear. Oropharynx with no redness, swelling, or masses, exudates, or evidence of obstruction, uvula midline. Mucous membranes moist. Neck: Trachea midline, no thyromegaly or masses palpated, and no cervical lymphadenopathy. Supple, full range of motion without nuchal rigidity, or vertebral point tenderness. No Meningismus. Chest/axilla: Normal chest wall appearance and motion. Nontender with no deformity. No lesions are appreciated. Cardiovascular: Regular rate and rhythm with a normal S1 and S2. No gallops, murmurs, or rubs. Normal PMI, no JVD. No pulse deficits. Respiratory: Lungs have equal breath sounds bilaterally, clear to auscultation and percussion. No rales, rhonchi or wheezes noted. No increased work of breathing, no retractions or nasal flaring. Abdomen/GI: Soft, non-tender, with normal bowel sounds. No distension or tympany. No guarding or rebound. No evidence of tenderness throughout. Skin: Warm, dry with normal turgor. Normal color with no rashes, no lesions, and no evidence of cellulitis. MS/ Extremity: Pulses equal, no cyanosis. Neurovascular intact. Full, normal range of motion. Neuro: Awake and alert, GCS 15, oriented to person, place, time, and situation. Cranial nerves II-XII grossly intact. Motor strength 5/5 in all extremities. Sensory grossly intact. Cerebellar exam normal. Normal gait. Psych: Awake, alert, with orientation to person, place and time. Behavior, mood, and affect are within normal limits. 09:03 Eyes: The left eye, there is a loop of apparent suture material, clear going from the medial aspect of the upper eyelid around to the lower eyelid. No conjunctival injection, extraocular muscles are intact, pupil is round and reactive to light.. Vital Signs: 08:55 BP 122 / 83; Pulse 92; Resp 16 S; Temp 98.0(O); Pulse Ox 100% on R/A; Weight 52.16 kg aa5 (R); Height 5 ft. 3 in. (160.02 cm) (R); Pain 0/10; 08:55 Body Mass Index 20.37 (52.16 kg, 160.02 cm) aa5 MDM: 08:56 Patient medically screened. rt 09:44 Differential diagnosis: Surgical complication, dehiscence. Data reviewed: vital signs, rt nurses notes. ED course: Patient presents to the ED with complication following oculoplastics procedure. There is a string protruding from it. No visual disturbance, no active bleeding. I discussed the case with the patient's neurologist, recommends the patient go to office today for further evaluation.. Administered Medications: No medications were administered Disposition Summary: 02/25/22 09:41 Discharge Ordered Location: Home rt Problem: new rt Symptoms: are unchanged rt Condition: Stable rt Diagnosis - Post ophthalmologic surgery complication rt Followup: rt - With: Private Physician - When: Today - Reason: Continuance of care Discharge Instructions: - Discharge Summary Sheet rt - Blurred Vision, Adult rt Forms: - Medication Reconciliation Form rt - Thank You Letter rt - Antibiotic Education rt - Prescription Opioid Use rt Signatures: Roshni Kinney, RN RN aa5 Francisco Huizar MD MD rt
--- NOTE | 2022-02-25 09:42 | ER ---
Nurse's Notes [facility] Name: Damaris Guerrero Age: 66 yrs Sex: Female : 1955 Arrival Date: 02/25/2022 Time: 08:52 Bed 6 Private MD: Diagnosis: Post ophthalmologic surgery complication Presentation: 02/25 08:55 Chief complaint: Patient states: "I had surgery on both my eyes for watery eyes and I aa5 woke up with this string coming out of my left eye today". Pt denies any pain, denies any vision changes, reports she had the eye sx at [facility] on February 03, 2022 and vision has been blurry since then without any changes. 08:55 Coronavirus screen: At this time, the client does not indicate any symptoms associated aa5 with coronavirus-19. Ebola Screen: Patient denies travel to an Ebola-affected area in the 21 days before illness onset. Initial Sepsis Screen: Does the patient meet any 2 criteria? No. Patient's initial sepsis screen is negative. Does the patient have a suspected source of infection? No. Patient's initial sepsis screen is negative. Risk Assessment: Do you want to hurt yourself or someone else? Patient reports no desire to harm self or others. Onset of symptoms was February 25, 2022. 08:55 Acuity: KARLY 3 aa5 08:55 Method Of Arrival: Ambulatory aa5 Historical: - Allergies: 09:05 PENICILLINS; aa5 - PMHx: 09:05 Asthma; Hypercholesterolemia; Hypothyroidism; aa5 09:06 Osteoporosis; aa5 - PSHx: 09:06 Indra Eye Sx February 03, 2022 for Ptosis of eyelid, epiphora of both eyes, and ectropion aa5 of lower eyelids; - Immunization history:: Adult Immunizations unknown. - Social history:: Smoking status: Patient denies any tobacco usage or history of. - Family history:: not pertinent. Screenin:55 [facility] ED Fall Risk Assessment (Adult) History of falling in the last 3 months, aa5 including since admission No falls in past 3 months (0 pts) Confusion or Disorientation No (0 pts) Intoxicated or Sedated No (0 pts) Impaired Gait No (0 pts) Mobility Assist Device Used No (0 pt) Altered Elimination No (0 pt) Score/Fall Risk Level 0 - 2 = Low Risk Maintained a safe environment, Hourly rounding (assess needs \\T\\ fall precautionary measures) done. Abuse screen: Denies threats or abuse. Nutritional screening: No deficits noted. Tuberculosis screening: No symptoms or risk factors identified. Assessment: 08:55 General: Appears comfortable, Behavior is calm, cooperative. Pain: Denies pain. Neuro: aa5 Level of Consciousness is awake, alert, obeys commands, Oriented to person, place, time, situation, Reports blurred vision since February 03, 2022, denies any changes in vision. Cardiovascular: Heart tones S1 S2 present Rhythm is regular. Respiratory: Airway is patent Respiratory effort is even, unlabored, Respiratory pattern is regular, symmetrical. GI: No signs and/or symptoms were reported involving the gastrointestinal system. : No signs and/or symptoms were reported regarding the genitourinary system. EENT: clear tubing that appears to be coming out of the left eye's tear duct noted, no drainage noted, no bleeding noted, pt denies any pain to left eye. . Derm: Skin is pink, warm \\T\\ dry. Musculoskeletal: Range of motion: intact in all extremities. 09:45 Reassessment: Patient is alert, oriented x 3, equal unlabored respirations, skin aa5 warm/dry/pink. Vital Signs: 08:55 BP 122 / 83; Pulse 92; Resp 16 S; Temp 98.0(O); Pulse Ox 100% on R/A; Weight 52.16 kg aa5 (R); Height 5 ft. 3 in. (160.02 cm) (R); Pain 0/10; 08:55 Body Mass Index 20.37 (52.16 kg, 160.02 cm) aa5 ED Course: 08:52 Patient arrived in ED. [id number] 08:53 Francisco Huizar MD is Attending Physician. rt 08:55 Arm band placed on Patient placed in an exam room, on a stretcher. aa5 08:55 Patient has correct armband on for positive identification. Bed in low position. Call aa5 light in reach. Side rails up X 1. Adult w/ patient. 09:03 Roshni Kinney, RN is Primary Nurse. aa5 09:05 Triage completed. aa5 09:45 No provider procedures requiring assistance completed. Patient did not have IV access aa5 during this emergency room visit. Administered Medications: No medications were administered Medication: 09:45 VIS not applicable for this client. aa5 Outcome: :41 Discharge ordered by . rt 09:45 Discharged to eye surgeon's office aa5 :45 Condition: stable 09:45 Discharge instructions given to patient, family, Instructed on discharge instructions, follow up and referral plans. Pt instructed to directly go to eye surgeon's office. 09:48 Patient left the ED. iw Signatures: Ursula Turner RN RN Roshni Barry RN RN Berna Go jm9 Francisco Huizar MD MD rt
[2022-02-25 09:52] VITALS: BP 122/83; TEMP 98; O2SAT 100
== END 2022-02-25 09:48 | disposition home or self-care (01) ==
LOC: ER 08:45
DX: H59.88 Other intraoperative complications of eye and adnexa, not elsewhere classified (principal); Z88.0 Allergy status to penicillin

== ENCOUNTER 2022-08-17 11:21 | Emergency (ER) | payer OTHER ==
--- OUTSIDE RECORDS SUMMARY | 2022-08-17 11:26 | XMS REPORT | Continuity of Care Document ---
:1955 Author Organization [facility] t Address [address] [place] [address] Care Team Providers Name Role Phone Opal Arellano Primary Care Physician Barbra Hammer Attending Clinician Unavailable KARINA HERNANDEZ Attending Clinician Unavailable Sumeet Paul Attending Clinician JOSE Attending Clinician Unavailable SUMEET MARIE Attending Clinician Unavailable Doctor Unassigned, [place] Attending Clinician Unavailable KARINA HERNANDEZ Admitting Clinician Unavailable JOSE Admitting Clinician Unavailable Payers Payer Name Policy Type Policy Number Effective Date Expiration Date S gricelda [facility] [employer] [id number] 2020 00:00:00 AARP [facility] 53 [id number] 2020 [facility] ADVANTAGE 00:00:00 - [facility] Problems Condition Condition Condition Status Onset Resolution Last Treating Co mments Source Name Details Category Date Date Treatment Clinician Date [id number] Acquired Problem Comm on hypothyroi Spirit dism [facility] Routine Routine Problem Common eye exam eye exam [facility] [id number] Environmen Problem Co mmon ayush and Spirit seasonal - CHI allergies [facility] [id number] Eczema, Problem Common unspecifie Spirit d type [facility] [id number] Mild Problem Common intermitte Spirit nt asthma - [facility]I without St complicati [facility] Allergic Allergic Problem Commo n rhinitis rhinitis, Spiri t unspecifie - [facility]I d [facility] [id number] Intrinsic Problem Comm on eczema [facility] [id number] Nontraumat Problem Co mmon ic tear of Spirit right - [facility] rotator St cuff, [facility] unspecifie Medica l d tear Center extent Osteoporos Osteoporos Problem C ommon is is [facility] Hypothyroi Hypothyroi Problem C ommon dism dism [facility] Hyperlipid Hyperlipid Problem C ommon emia emia [facility] [id number] Vitamin D Problem Comm on insufficie Spirit ncy [facility] No known No known Disease Unive rs active active ity of problems problems [facility] Allergies, Adverse Reactions, Alerts Allergy Allergy Status Severity Reaction(s) Onset Inactive Treating Comm ents Source Name Type Date Date Clinician NO KNOWN Drug Active Univers ALLERGIE Class ity of S [facility] Codeine Codeine Active vomiting [facility] Social History Social Habit Start Date Stop Date Quantity Comments Source History of [facility] - Tobacco Use [facility] Sex Assigned At [facility] guillermina - [facility] Exposure to Not sure University of SARS-CoV-2 [facility] (event) [place] Tobacco use and 2021-06-18 2021-06-18 Smokeless tobacco Un iversity of exposure 00:00:00 00:00:00 non-user [facility] Alcohol intake 2021-06-18 2021-06-18 0 /d University of 00:00:00 00:00:00 [facility] Smoking Status Start Date Stop Date Source Never Smoker [facility] - [facility] Medications Ordered Filled Start Stop Current Ordering Indication Dosage Frequency Signature Comments Components Source Medication Medication Date Date Medication? Clinician (SIG) Name Name Pseudootish-B Pseudoeph-B No 5{ml} QID Pseudoeph- romphen-DM romphen-DM 4-21 Bromphen-D 30-2-10 30-2-10 00:00: M 30-2-10 MG/5ML MG/5ML 00 MG/5ML Levothyroxi Levothyroxi No QD Levothyrox ne Sodium ne Sodium 2-20 ine Sodium 50 MCG 50 MCG 00:00: 50 MCG 00 Mupirocin 2 Mupirocin 2 2021- No 1{appli BID Mupirocin % % 6-24 06- cation} 2 % 00:00: 00:00 00 :00 [...] Branch ESTRADIOL Yes Insert Univer s (VAGIFEM 13 into ity of VAGINAL) 12:18: vagina. [place] 30 Medical Branch PROGESTERON Yes Univer s [...] beclomethas Yes Inhale 2 Un jamshid one -13 (two) ity of dipropionat 12:18: times [place] [...] Branch ESTRADIOL Yes Insert Univer s (VAGIFEM -13 into ity of VAGINAL) 12:18: vagina. [address] PROGESTERON Yes Univer s E MISC 4-13 ity of 12:18: 30 [facility] Cyanocobala Yes 2500ug Place Uni vers min 4-13 2,500 mcg ity of (VITAMIN 12:18: [place] the [place] B-12) 1,000 30 tongue. Medic al mcg Branch sublingual tablet Biotin Yes 1000ug Take 1,000 Uni vers (APPEAREX) 4-13 mcg by ity of 2,500 mcg 12:18: mouth. [place] Tab 30 [facility] mupirocin 2 Yes [id number] Apply to Univers % ointment - [id number] area(s) 3 it y of 00:00: (three) [place] 00 times Medical daily. Branch mupirocin 2 Yes [id number] Apply to Univers % ointment - [id number] area(s) 3 it y of 00:00: (three) [place] 00 times Medical daily. Branch cephALEXin 2021- No [id number] 500mg Take 1 Univers (KEFLEX) [id number] capsule by it y of 500 mg 00:00: 04:59 mouth 4 [place] capsule 00 :00 (four) Medical times [place] daily for 10 days. EUTHYROX 75 Yes TAKE 1 Univ ers mcg tablet 3-10 TABLET BY ity of 00:00: MOUTH IN [place] 00 THE Medical MORNING ON [place] AN EMPTY STOMACH ONCE DAILY WEDNESDAY - WEDNESDAY SKIP WEDNESDAY. EUTHYROX 75 0 Yes TAKE 1 Univ ers mcg tablet 3-10 TABLET BY ity of 00:00: MOUTH IN [place] 00 THE Medical MORNING ON [place] AN EMPTY STOMACH ONCE DAILY WEDNESDAY - WEDNESDAY SKIP WEDNESDAY. methylPREDN methylPREDN 0 2021- No methylPRED ISolone 4 ISolone 4 3-04 03-11 NISolone 4 MG MG 00:00: 00:00 MG 00 :00 Pseudoeph-B Pseudoeph-B 2021-0 2- No 5{ml_as QID Pseudoeph- romphen-DM romphen-DM 2-17 05-14 _needed Bromphen-D 20 06-04-19 00:00: 00:00 } M 30-1-20 MG/5ML MG/5ML 00 :00 MG/5ML Pseudoeph-B Pseudoeph-B 2021-0 2- No 5{ml_as QID Pseudoeph- romphen-DM romphen-DM 2-17 05-14 _needed Bromphen-D 30-20 06-04-19 00:00: 00:00 } M 30-1-20 MG/5ML MG/5ML 00 :00 MG/5ML Pseudoeph-B Pseudoeph-B 0 2- No 5{ml_as QID Pseudoeph- romphen-DM romphen-DM 2-17 05-14 _needed Bromphen-D 06-04-19 06-04-19 00:00: 00:00 } M 30-1-20 MG/5ML MG/5ML 00 :00 MG/5ML alendronate 2021-0 Yes 70mg Take 70 mg Univers 70 mg 1-18 by mouth ity of tablet 00:00: weekly. [address] alendronate 2021-0 Yes 70mg Take 70 mg Univers 70 mg 1-18 by mouth ity of tablet 00:00: weekly. [address] Kenalog Kenalog 2019-03 No 40mg Common (Triamcinol (Triamcinol 0-05 S pirit one) one) 00:00: - [facility]I 00 [facility] Bupivicaine Bupivicaine 2019-1 No 5mg Common [place] 0-05 Spirit 00:00: - [facility]I 00 [facility] Kenalog Kenalog 2019- No 40mg Common (Triamcinol (Triamcinol 0-05 S pirit one) one) 00:00: - [facility]I 00 [facility] Bupivicaine Bupivicaine 2019- No 5mg Common [place] 0-05 Spirit 00:00: - [facility]I [facility] Kenalog Kenalog 2020-1 No 40mg Common (Triamcinol (Triamcinol 0-05 S pirit one) one) 00:00: - CHI 00 [facility] Bupivicaine Bupivicaine 2020-1 No 5mg Common [place] 0-05 Spirit 00:00: - [facility]I 00 [facility] Kenalog Kenalog 2020-1 No 40mg Common (Triamcinol (Triamcinol 0-05 S pirit one) one) 00:00: - [facility]I 00 [facility] Bupivicaine Bupivicaine 2019-1 No 5mg Common [place] 0-05 Spirit 00:00: - [facility]I 00 [facility] Kenalog Kenalog 2019-1 No 40mg Common (Triamcinol (Triamcinol 0-05 S pirit one) one) 00:00: - [facility]I 00 [facility] Bupivicaine Bupivicaine 2020-1 No 5mg Common [place] 0-05 Spirit 00:00: - [facility]I 00 [facility] Kenalog Kenalog 2020-1 No 40mg Common (Triamcinol (Triamcinol 0-05 S pirit one) one) 00:00: - [facility]I 00 [facility] Bupivicaine Bupivicaine 2020-1 No 5mg Common [place] 0-05 Spirit 00:00: - [facility]I 00 [facility] Kenalog Kenalog 2020-1 No 40mg Common (Triamcinol (Triamcinol 0-05 S pirit one) one) 00:00: - [facility]I 00 [facility] Bupivicaine Bupivicaine 2020-1 No 5mg Common [place] 0-05 Spirit 00:00: - [facility]I 00 [facility] Kenalog Kenalog 2020-1 No 40mg Common (Triamcinol (Triamcinol 0-05 S pirit one) one) 00:00: - [facility]I 00 [facility] Bupivicaine Bupivicaine 2020-1 No 5mg Common [place] 0-05 Spirit 00:00: - [facility]I 00 [facility] Kenalog Kenalog 2020-1 No 40mg Common (Triamcinol (Triamcinol 0-05 S pirit one) one) 00:00: - [facility]I 00 [facility] Bupivicaine Bupivicaine 2019- No 5mg Common [place] 0-05 Spirit 00:00: - [facility] Kenalog Kenalog 2019- No 40mg Common (Triamcinol (Triamcinol 0-05 S pirit one) one) 00:00: - [facility]I [facility] Bupivicaine Bupivicaine 2019- No 5mg Common [place] 0-05 Spirit 00:00: - [facility] Kenalog Kenalog 2019-03 No 40mg Common (Triamcinol (Triamcinol 0-05 S pirit one) one) 00:00: - CHI [facility] Bupivicaine Bupivicaine 2019- No 5mg Common [place] 0-05 Spirit 00:00: - [facility] Kenalog Kenalog 2019-03 No 40mg Common (Triamcinol (Triamcinol 0-05 S pirit one) one) 00:00: - CHI [facility] Bupivicaine Bupivicaine 2019- No 5mg Common [place] 0-05 Spirit 00:00: - [facility] Albuterol Albuterol Yes Barbra 3 ml as Common Sulfate Sulfate 6-10 [place] needed Spirit 00:00: - [facility] Albuterol Albuterol 0 No 3{ml_as QID Albuterol Sulfate Sulfate 6-10 [...] Yes Barbra 1 Common ne ne 4-16 [place] applicatio Spirit Acetonide Acetonide 00:00: n - C [place] 00 [facility] Triamcinolo Triamcinolo 2019-0 No 1{appli Triamcinol ne ne 4-16 cation} one Acetonide Acetonide 00:00: Acetonide 0.1 % 0.1 % 00 0.1 % Triamcinolo Triamcinolo 2019-0 No 1{appli Triamcinol ne ne 4-16 cation} one Acetonide Acetonide 00:00: Acetonide 0.1 % 0.1 % 00 0.1 % Triamcinolo Triamcinolo 2019-0 No 1{appli Triamcinol ne [...] pirit one) one) 00:00: - CHI 00 [facility] Dexamethaso Dexamethaso 2020-0 No 8mg Common ne ne 4-16 Spirit 00:00: - [facility]I 00 [facility] Triamcinolo Triamcinolo 2020-0 No 1{appli Triamcinol ne ne 4-16 cation} one Acetonide Acetonide 00:00: Acetonide 0.1 % 0.1 % 00 0.1 % Kenalog Kenalog 2020-0 No 80mg Common (Triamcinol (Triamcinol 4-16 S pirit one) one) 00:00: - [facility]I 00 [facility] Dexamethaso Dexamethaso 2020-0 No 8mg Common ne ne 4-16 Spirit 00:00: - [facility]I 00 [facility] Triamcinolo Triamcinolo 2020-0 No 1{appli Triamcinol ne ne 4-16 cation} one Acetonide Acetonide 00:00: Acetonide 0.1 % 0.1 % 00 0.1 % Kenalog Kenalog 2020-0 No 80mg Common (Triamcinol (Triamcinol 4-16 S pirit one) one) 00:00: - CHI 00 [facility] Dexamethaso Dexamethaso 2020-0 No 8mg Common ne ne 4-16 Spirit 00:00: - [facility]I 00 [facility] Triamcinolo Triamcinolo 2020-0 No 1{appli Triamcinol ne ne 4-16 cation} one Acetonide Acetonide 00:00: Acetonide 0.1 % 0.1 % 00 0.1 % Kenalog Kenalog 2020-0 No 80mg Common (Triamcinol (Triamcinol 4-16 S pirit one) one) 00:00: - [facility]I 00 [facility] Dexamethaso Dexamethaso 2020-0 No 8mg Common ne ne 4-16 Spirit 00:00: - [facility]I 00 [facility] Triamcinolo Triamcinolo 2020-0 No 1{appli Triamcinol ne ne 4-16 cation} one Acetonide Acetonide 00:00: Acetonide 0.1 % 0.1 % 00 0.1 % Kenalog Kenalog 2020-0 No 80mg Common (Triamcinol (Triamcinol 4-16 S pirit one) one) 00:00: - [facility]I 00 [facility] Dexamethaso Dexamethaso 2020-0 No 8mg Common ne ne 4-16 Spirit 00:00: - [facility] 00 [facility] Triamcinolo Triamcinolo 2020-0 No 1{appli Triamcinol ne ne 4-16 cation} one Acetonide Acetonide 00:00: Acetonide 0.1 % 0.1 % 00 0.1 % Kenalog Kenalog 2020-0 No 80mg Common (Triamcinol (Triamcinol 4-16 S pirit one) one) 00:00: - [facility]I 00 [facility] Dexamethaso Dexamethaso 2020-0 No 8mg Common ne ne 4-16 Spirit 00:00: - [facility]I 00 [facility] Triamcinolo Triamcinolo 2020-0 No 1{appli Triamcinol ne ne 4-16 cation} one Acetonide Acetonide 00:00: Acetonide 0.1 % 0.1 % 00 0.1 % Kenalog Kenalog 2020-0 No 80mg Common (Triamcinol (Triamcinol 4-16 S pirit one) one) 00:00: - [facility]I 00 [facility] Dexamethaso Dexamethaso 2020-0 No 8mg Common ne ne 4-16 Spirit 00:00: - [facility]I 00 [facility] Triamcinolo Triamcinolo 2020-0 No 1{appli Triamcinol ne ne 4-16 cation} one Acetonide Acetonide 00:00: Acetonide 0.1 % 0.1 % 00 0.1 % Kenalog Kenalog 2020-0 No 80mg Common (Triamcinol (Triamcinol 4-16 S pirit one) one) 00:00: - [facility]I 00 [facility] Dexamethaso Dexamethaso 2020-0 No 8mg Common ne ne 4-16 Spirit 00:00: - [facility]I 00 [facility] Triamcinolo Triamcinolo 2020-0 No 1{appli Triamcinol ne ne 4-16 cation} one Acetonide Acetonide 00:00: Acetonide 0.1 % 0.1 % 00 0.1 % Kenalog Kenalog 2020-0 No 80mg Common (Triamcinol (Triamcinol 4-16 S pirit one) one) 00:00: - [facility]I 00 [facility] Dexamethaso Dexamethaso 2020-0 No 8mg Common ne ne 4-16 Spirit 00:00: - [facility]I 00 [facility] Triamcinolo Triamcinolo 2020-0 No 1{appli Triamcinol ne ne 4-16 cation} one Acetonide Acetonide 00:00: Acetonide 0.1 % 0.1 % 00 0.1 % Kenalog Kenalog 2020-0 No 80mg Common (Triamcinol (Triamcinol 4-16 S pirit one) one) 00:00: - CHI 00 [facility] Dexamethaso Dexamethaso 2020-0 No 8mg Common ne ne 4-16 Spirit 00:00: - [facility] Triamcinolo Triamcinolo 2020-0 No 1{appli Triamcinol ne ne 4-16 cation} one Acetonide Acetonide 00:00: Acetonide 0.1 % 0.1 % 00 0.1 % Kenalog Kenalog 2020-0 No 80mg Common (Triamcinol (Triamcinol 4-16 S pirit one) one) 00:00: - [facility]I 00 [facility] Dexamethaso Dexamethaso 2020-0 No 8mg Common ne ne 4-16 Spirit 00:00: - [facility] Triamcinolo Triamcinolo 2020-0 No 1{appli Triamcinol ne ne 4-16 cation} one Acetonide Acetonide 00:00: Acetonide 0.1 % 0.1 % 00 0.1 % Kenalog Kenalog 2020-0 No 80mg Common (Triamcinol (Triamcinol 4-16 S pirit one) one) 00:00: - [facility] Dexamethaso Dexamethaso 2020-0 No 8mg Common ne ne 4-16 Spirit 00:00: - [facility] Albuterol Albuterol 0 Yes Barbra 2 puffs as Common Sulfate HFA Sulfate HFA 9-11 [place] needed Spirit 00:00: - [facility] loratadine Yes 10mg Take 10 mg U nivers (CLARITIN) 7-20 by mouth ity o f 10 mg 09:21: daily. [place] tablet 52 Medical Branch thyroid Yes 60mg Take 60 [...] mouth ity of 10 mg 09:21: daily. [place] tablet 52 Medical Branch ALBUTEROL Yes Inhale. Unive rs SULFATE 7-20 ity of (PROAIR HFA 09:21: [place] INHALE) 52 Medical Branch ibandronate Yes 150mg Take 150 U nivers (BONIVA) 7-20 mg by ity of 150 mg 09:21: mouth once [place] tablet 52 every Medical month. Branch clobetasol Yes Apply to Uni vers (TEMOVATE) 7-20 area(s) 2 ity of 0.05 % 09:21: (two) [place] ointment 52 times Medical daily. Branch ESTRADIOL Yes Insert Univer s (VAGIFEM 7-20 into ity of VAGINAL) 09:21: vagina. [place] [address] Medical Branch PROGESTERON Yes Univer s E MISC 7-20 ity of 09:21: [place] [address] Medical Branch pravastatin Yes 40mg Take 40 mg Univers (PRAVACHOL) 7-20 by mouth ity of 40 mg 09:21: at [place] tablet 52 bedtime. Medical Branch TRIAMCINOLO Yes [id number] APPLY TO Univers NE 6-29 AFFECTED ity of ACETONIDE 00:00: AREAS [place] 0.1 % cream 00 TWICE A Medic al DAY Branch TRIAMCINOLO Yes [id number] APPLY TO Univers NE 6-29 AFFECTED ity of ACETONIDE 00:00: AREAS [place] 0.1 % cream 00 TWICE A Medic al DAY Branch TRIAMCINOLO Yes [id number] APPLY TO Univers NE 6-29 AFFECTED ity of ACETONIDE 00:00: AREAS [place] 0.1 % cream 00 TWICE A Medic al DAY Branch fluocinonid Yes [id number] Apply 3-5 Univers e 0.05 % 3-21 drops to ity of solution 00:00: affected [place] 00 areas in Medical scalp Branch BIDprn fluocinonid Yes [id number] Apply 3-5 Univers e 0.05 % 3-21 drops to ity of solution 00:00: affected [place] 00 areas in Medical scalp Branch BIDprn fluocinonid Yes [id number] Apply 3-5 Univers e 0.05 % 3-21 drops to ity of solution 00:00: affected [place] 00 areas in Medical scalp Branch BIDprn Cyanocobala 2015-[address] Uni vers min 1-29 2,500 mcg ity of (VITAMIN 08:33: [place] the [place] B-12) 1,000 40 tongue. Medic al mcg Branch sublingual tablet Biotin 2015-03 Yes 1000ug Take 1,000 Uni vers (APPEAREX) 1-29 mcg by ity of 2,500 mcg 08:33: mouth. [place] Tab 40 Medical Branch triamcinolo 2015-03 Yes [id number] Apply to Univers ne 1-29 rash on ity of acetonide 00:00: neck and [place] (KENALOG) 00 ankles BID Medi mehrdad 0.1 % until Branch ointment clear, then prn triamcinolo 2015-03 Yes [id number] Apply to Univers ne 1-29 rash on ity of acetonide 00:00: neck and [place] (KENALOG) 00 ankles BID Medi mehrdad 0.1 % until Branch ointment clear, then prn triamcinolo 2015-03 Yes [id number] Apply to Univers ne 1-29 rash on ity of acetonide 00:00: neck and [place] (KENALOG) 00 ankles BID Medi mehrdad 0.1 % until Branch ointment clear, then prn fluocinonid Yes [id number] Apply to Univers e (LIDEX) 9-27 area(s) 2 ity o f 0.05 % 00:00: (two) [place] cream 00 times Medical daily. Do Branch not apply to face, groin or underarms. fluocinonid Yes [id number] Apply to Univers e (LIDEX) 9-27 area(s) 2 ity o f 0.05 % 00:00: (two) [place] cream 00 times Medical daily. Do Branch not apply to face, groin or underarms. fluocinonid Yes [id number] Apply to Univers e (LIDEX) 9-27 area(s) 2 ity o f 0.05 % 00:00: (two) [place] cream 00 times Medical daily. Do Branch not apply to face, groin or underarms. 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 Barbra 1 tablet Common [place] on an Spirit empty - CHI stomach [facility] Cetirizine Cetirizine Yes Barbra 1 tablet Common HCl HCl [facility] Qvar Qvar Yes Barbra 1-2 puffs Common RediHaler RediHaler [place] [facility] Alendronate Alendronate Yes Barbra 1 tablet Common Sodium Sodium [facility] Pravastatin Pravastatin Yes Barbra 1 tablet Common Sodium Sodium [facility] Progesteron Progesteron No Progestero e 100 MG [...] Base) Base) (90 Base) MCG/ACT MCG/ACT MCG/ACT Albuterol Albuterol No Albuterol Sulfate HFA Sulfate HFA Sulfate 108 (90 108 (90 HFA 108 Base) Base) (90 Base) MCG/ACT MCG/ACT MCG/ACT Pravastatin Pravastatin No Pravastati Sodium 40 Sodium 40 n Sodium MG MG 40 MG Progesteron Progesteron No Progestero e 100 MG e 100 MG ne 100 MG EQ Allergy EQ Allergy No EQ Allergy Relief Relief Relief (Cetirizine (Cetirizine (Cetirizin ) 10 MG ) 10 MG e) 10 MG Arnuity Arnuity No 1{puff} QD Arnuity Ellipta 100 Ellipta 100 Ellipta MCG/ACT MCG/ACT 100 MCG/ACT Montelukast Montelukast No Montelukas Sodium 10 Sodium 10 t Sodium MG MG 10 MG Alendronate Alendronate No Alendronat Sodium 70 Sodium 70 e Sodium MG MG 70 MG Vitamin Vitamin No 1{table QD Vitamin B-12 ER B-12 ER t} B-12 ER 2000 MCG 2000 MCG 2000 MCG Pravastatin Pravastatin No QD Pravastati Sodium 40 [...] Status Commen ts Source Name Name Bupivicaine [place] Bupivicaine [place] 2019-12-11 Completed [facility] 11:29:00 [facility] Bupivicaine [place] Bupivicaine [place] 2019-12-11 Completed [facility] 11:29:00 [facility] Kenalog Kenalog 2019-12-11 Completed [facility] (Triamcinolone) (Triamcinolone) 11:28:00 [facility] Kenalog Kenalog 2019-12-11 Completed [facility] (Triamcinolone) (Triamcinolone) 11:28:00 [facility] Flucelvax - single Flucelvax - single 2019-12-03 Completed [facility] dose syringe dose syringe 09:35:00 [facility] Flucelvax - single Flucelvax - single 2019-12-03 Completed [facility] dose syringe dose syringe 09:35:00 - [facility] Flucelvax - single Flucelvax - single 2019-12-03 Completed [facility] dose syringe dose syringe 09:35:00 - [facility] Flucelvax - single Flucelvax - single 2019-12-03 Completed [facility] dose syringe dose syringe 09:35:00 - [facility] Flucelvax - single Flucelvax - single 2019-12-03 Completed [facility] dose syringe dose syringe 09:35:00 - [facility] Flucelvax - single Flucelvax - single 2019-12-03 Completed [facility] dose syringe dose syringe 09:35:00 - [facility] Flucelvax - single Flucelvax - single 2019-12-03 Completed [facility] dose syringe dose syringe 09:35:00 - [facility] Flucelvax - single Flucelvax - single 2019-12-03 Completed [facility] dose syringe dose syringe 09:35:00 - [facility] Flucelvax - single Flucelvax - single 2019-12-03 Completed [facility] dose syringe dose syringe 09:35:00 - [facility] Flucelvax - single Flucelvax - single 2019-12-03 Completed [facility] dose syringe dose syringe 09:35:00 - [facility] Flucelvax - single Flucelvax - single 2019-12-03 Completed [facility] dose syringe dose syringe 09:35:00 - [facility] Flucelvax - single Flucelvax - single 2019-12-03 Completed [facility] dose syringe dose syringe 09:35:00 - [facility] Flucelvax - single Flucelvax - single 2019-12-03 Completed [facility] dose syringe dose syringe 09:35:00 - [facility] Flucelvax - single Flucelvax - single 2019-12-03 Completed [facility] dose syringe dose syringe 09:35:00 - [facility] Flucelvax - single Flucelvax - single 2019-12-03 Completed [facility] dose syringe dose syringe 09:35:00 - [facility] Flucelvax - single Flucelvax - single 2019-12-03 Completed [facility] dose syringe dose syringe 09:35:00 - [facility] Flucelvax - single Flucelvax - single 2019-12-03 Completed [facility] dose syringe dose syringe 09:35:00 - [facility] Flucelvax - single Flucelvax - single 2019-12-03 Completed [facility] dose syringe dose syringe 09:35:00 - [facility] Flucelvax - single Flucelvax - single 2019-12-03 Completed [facility] dose syringe dose syringe 09:35:00 - [facility] Flucelvax - single Flucelvax - single 2019-12-03 Completed [facility] dose syringe dose syringe 09:35:00 - [facility] Kenalog Kenalog 2019-06-22 Completed [facility] (Triamcinolone) (Triamcinolone) 09:55:00 - [facility] Dexamethasone Dexamethasone 2019-06-22 Completed Common S pirit 09:55:00 - [facility] Kenalog Kenalog 2019-06-22 Completed [facility] (Triamcinolone) (Triamcinolone) 09:55:00 - [facility] Dexamethasone Dexamethasone 2019-06-22 Completed Common S pirit 09:55:00 - [facility] Flucelvax - multidose Flucelvax - 2018-11-10 Completed Co [facility] vial multidose vial 14:03:00 - [facility] Flucelvax - multidose Flucelvax - 2018-11-10 Completed [facility] vial multidose vial 14:03:00 - [facility] Flucelvax - multidose Flucelvax - 2018-11-10 Completed [facility] vial multidose vial 14:03:00 - [facility] Flucelvax - multidose Flucelvax - 2018-11-10 Completed [facility] vial multidose vial 14:03:00 - [facility] Flucelvax - multidose Flucelvax - 2018-11-10 Completed [facility] vial multidose vial 14:03:00 - [facility] Flucelvax - multidose Flucelvax - 2018-11-10 Completed [facility] vial multidose vial 14:03:00 - [facility] Flucelvax - multidose Flucelvax - 2018-11-10 Completed [facility] vial multidose vial 14:03:00 - [facility] Flucelvax - multidose Flucelvax - 2018-11-10 Completed [facility] vial multidose vial 14:03:00 - [facility] Flucelvax - multidose Flucelvax - 2018-11-10 Completed [facility] vial multidose vial 14:03:00 - [facility] Flucelvax - multidose Flucelvax - 2018-11-10 Completed [facility] vial multidose vial 14:03:00 - [facility] Flucelvax - multidose Flucelvax - 2018-11-10 Completed [facility] vial multidose vial 14:03:00 - [facility] Flucelvax - multidose Flucelvax - 2018-11-10 Completed [facility] vial multidose vial 14:03:00 - [facility] Flucelvax - multidose Flucelvax - 2018-11-10 Completed [facility] vial multidose vial 14:03:00 - [facility] Flucelvax - multidose Flucelvax - 2018-11-10 Completed [facility] vial multidose vial 14:03:00 - [facility] Flucelvax - multidose Flucelvax - 2018-11-10 Completed [facility] vial multidose vial 14:03:00 - [facility] Flucelvax - multidose Flucelvax - 2018-11-10 Completed [facility] vial multidose vial 14:03:00 - [facility] Flucelvax - multidose Flucelvax - 2018-11-10 Completed [facility] vial multidose vial 14:03:00 - [facility] Flucelvax - multidose Flucelvax - 2018-11-10 Completed [facility] vial multidose vial 14:03:00 - [facility] Flucelvax - multidose Flucelvax - 2018-11-10 Completed [facility] vial multidose vial 14:03:00 - [facility] Flucelvax - multidose Flucelvax - 2018-11-10 Completed [facility] vial multidose vial 14:03:00 - [facility] Vital Signs Vital Name Observation Time Observation Value Comments Source height 2021-10-16 09:20:00 63 [in_i] Common [facility] weight 2021-10-16 09:20:00 114.2 [lb_av] [facility] temperature 2021-10-16 09:20:00 97.0 [degF] [facility] bmi 2021-10-16 09:20:00 20.23 kg/m2 [facility] oximetry 2021-10-16 09:20:00 98 % [facility] respiratory rate 2021-10-16 09:20:00 16 /min Comm on [facility] blood pressure 2021-10-16 09:20:00 106 mm[Hg] Common [facility] - systolic [facility] blood pressure 2021-10-16 09:20:00 59 mm[Hg] [facility] diastolic [facility] height 2021-08-29 09:40:00 63 [in_i] Common [facility] weight 2021-08-29 09:40:00 115 [lb_av] [facility] temperature 2021-08-29 09:40:00 97.8 [degF] [facility] bmi 2021-08-29 09:40:00 20.37 kg/m2 [facility] oximetry 2021-08-29 09:40:00 97 % [facility] respiratory rate 2021-08-29 09:40:00 16 /min Comm on [facility] blood pressure 2021-08-29 09:40:00 116 mm[Hg] [facility] - systolic [facility] blood pressure 2021-08-29 09:40:00 57 mm[Hg] [facility] - diastolic [facility] Systolic blood 2021-06-18 17:18:00 116 mm[Hg] Univer sity of pressure [facility] Diastolic blood 2021-06-18 17:18:00 77 mm[Hg] [facility] Heart rate 2021-06-18 17:18:00 74 /min [facility] Body temperature 2021-06-18 17:18:00 36.61 Melonie [facility] Res[facility] rate 2021-06-18 17:18:00 16 /min [facility] Body height 2021-06-18 17:18:00 160 cm [facility] Body weight 2021-06-18 17:18:00 52.164 kg [facility] BMI 2021-06-18 17:18:00 20.37 kg/m2 [facility] Oxygen saturation in 2021-06-18 17:18:00 100 /min [facility] Arterial blood by [facility] Pulse oximetry Branch height 2021-04-24 16:20:00 63 [in_i] [facility] weight 2021-04-24 16:20:00 120 [lb_av] [facility] temperature 2021-04-24 16:20:00 99.7 [degF] Common [facility] bmi 2021-04-24 16:20:00 21.25 kg/m2 Common [facility] height 2021-04-01 09:40:00 63 [in_i] [facility] weight 2021-04-01 09:40:00 120.0 [lb_av] [facility] - [facility] temperature 2021-04-01 09:40:00 97.9 [degF] Common [facility] bmi 2021-04-01 09:40:00 21.25 kg/m2 Common S pirit [facility] oximetry 2021-04-01 09:40:00 99 % Common S [facility] respiratory rate 2021-04-01 09:40:00 16 /min Comm on [facility] blood pressure 2021-04-01 09:40:00 100 mm[Hg] Common [facility] - systolic [facility] blood pressure 2021-04-01 09:40:00 65 mm[Hg] Common [facility] - diastolic [facility] Procedures Procedure Date / Time Performed Performing Clinician [facility] e ASSIGNMENT OF BENEFITS 2021-06-18 17:10:42 Doctor Unassigned, No [facility] Encounters Start End Encounter Admission Attending Care Care Encounter Source Date/Time Date/Time Type Type Clinicians Facility Department ID 2022-02-02 Outpatient [facility] [id number] [place] 09:44:33 [id number] Health 2021-10-16 [place]patient [place], STLMLC STLMLC [id number] Common 09:05:00 Barbra [id number] [facility] 2021-10-14 [place]patient [place], STLMLC STLMLC [id number] Common 09:31:00 Barbra 57082 [facility] 2021-05-05 [place]patient [place], STLMLC STLMLC [id number] Common 10:18:01 Barbra [facility] 2021-04-24 [place]patient [place], STLMLC STLMLC [id number] Common 16:22:00 Barbra [facility] 2021-04-02 [place]patient [place], STLMLC STLMLC [id number] Common 12:28:39 Barbra 08165 [facility] 2021-04-02 Outpatient [place], STLMLC STLMLC [id number] Common 12:02:24 Barbra 13748 [facility] 2021-04-02 [place]patient [place], STLMLC STLMLC [id number] Common 11:51:47 Barbra 71928 [facility] 2021-04-02 [place]patient [place], STLMLC STLMLC [id number] Common 11:46:12 Barbra 69048 [facility] 2021-04-02 Outpatient Jaqu[place], STLMLC STLMLC [id number] Common 11:05:47 Barbra [id number] [facility] 2022-02-24 2022-02-24 (TEL) STLMLC STLMLC [id number] [facility] 00:00:00 00:00:00 [facility] 2022-02-19 2022-02-19 (TEL) STLMLC STLMLC [id number] [facility] 00:00:00 00:00:00 [facility] 2022-02-03 2022-02-03 Outpatient [facility]ID [facility] [id number] [facility] 05:22:00 23:59:00 KARINA 2021-11-25 2021-11-25 (TEL) STLMLC STLMLC [id number] [facility] 00:00:00 00:00:00 [facility] 2021-11-24 2021-11-24 (TEL) STLMLC STLMLC [id number] [facility] 00:00:00 00:00:00 [facility] 2021-10-24 2021-10-24 (TEL) STLMLC STLMLC [id number] [facility] 00:00:00 00:00:00 [facility] 2021-10-17 2021-10-17 Naveed Marie RUST [id number] Univers 00:00:00 00:00:00 [facility] [id number] it y of [place] [id number] Shabbir as ELOY?BLEA [phone] [place] [address] MEDICAL OFFICE BUILDING 2021-10-16 2021-10-16 OFFICE STLMLC STLC [id number] [facility]mon 00:00:00 00:00:00 VISIT EST Spir it PT LEVEL 3 - [facility] 2021-10-02 2021-10-02 Outpatient DAYLIN_CRISTOPHER TOBAR MOFARIHA [address] 00:00:00 00:00:00 [facility] 2021-09-29 2021-09-29 (TEL) STLMLC STLMLC [id number] [facility] 00:00:00 00:00:00 [facility] 2021-09-05 2021-09-05 (TEL) STLMLC STLMLC [id number] [facility] 00:00:00 00:00:00 [facility] 2021-08-29 2021-08-29 OFFICE STLMLC STLMLC [id number] [facility]mon 00:00:00 00:00:00 VISIT EST Spir it PT LEVEL 3 [facility] 2021-06-18 2021-06-18 [facility] [id number] Univers 12:20:00 12:43:[address] [facility] [id number] it y of [place] [id number] Shabbir as ELOY?BLEA [id number] [address] MEDICAL OFFICE BUILDING 2021-06-18 2021-06-[address] [facility] [id number] Univers 12:20:00 12:43:18 [facility] 2021-06-18 2021-06-18 Orders Doctor LUIS [id number] Univers 00:00:00 00:00:00 Only Unassigned, [place] [id number] ity of [place] [facility] [id number] Shabbir as [id number] [address] 2021-05-09 2021-05-09 (TEL) STLMLC STLMLC [id number] [facility]mon 00:00:00 00:00:00 [facility] 2021-04-24 2021-04-24 OL DIG E/M STLMLC STLMLC [id number] Common 00:00:00 00:00:00 SVC 5-10 Spiri t [facility] 2021-04-23 2021-04-23 (TEL) STLMLC STLMLC [id number] Co mmon 00:00:00 00:00:00 [facility] 2021-04-04 2021-04-04 (TEL) STLMLC STLMLC [id number] [facility]mon 00:00:00 00:00:00 [facility] 2021-04-01 2021-04-01 OFFICE STLMLC STLMLC [id number] Co mmon 00:00:00 00:00:00 VISIT [facility] PT - CHI LEVEL 4 [facility] 2021-03-25 2021-03-25 (TEL) STLMLC STLMLC [id number] Co mmon 00:00:00 00:00:00 [facility] 2021-02-20 2021-02-20 (TEL) STLMLC STLMLC [id number] Co mmon 00:00:00 00:00:00 [facility] 2021-01-31 2021-01-31 (TEL) STLMLC STLMLC [id number] Co mmon 00:00:00 00:00:00 [facility] 2020-12-20 2020-12-20 (TEL) STLMLC STLMLC [id number] Co mmon 00:00:00 00:00:00 [facility] 2020-12-20 2020-12-20 OFFICE STLMLC STLMLC [id number] Co mmon 00:00:00 00:00:00 VISIT [facility] PT - CHI LEVEL 1 [facility] 2020-11-22 2020-11-22 Outpatient STLMLC STLMLC [id number] Common 00:00:00 00:00:00 [facility] 2020-11-15 2020-11-15 Outpatient STLMLC STLMLC [id number] Common 00:00:00 00:00:00 [facility] 2020-10-09 2020-10-09 Outpatient STLMLC STLMLC [id number] Common 00:00:00 00:00:00 [facility] 2020-10-09 2020-10-09 Outpatient STLMLC STLMLC [id number] Common 00:00:00 00:00:00 [facility] 2020-10-09 2020-10-09 Outpatient STLMLC STLMLC [id number] Common 00:00:00 00:00:00 [facility] 2020-07-16 2020-07-16 Outpatient STLMLC STLMLC [id number] Common 00:00:00 00:00:00 [facility] 2020-07-09 2020-07-09 Outpatient STLMLC STLMLC [id number] Common 00:00:00 00:00:00 [facility] 2020-06-19 2020-06-19 Outpatient STLMLC STLMLC [id number] Common 00:00:00 00:00:00 [facility] 2020-04-18 2020-04-18 Outpatient STLMLC STLMLC [id number] Common 00:00:00 00:00:00 [facility] 2020-04-12 2020-04-12 Outpatient STLMLC STLMLC [id number] Common 00:00:00 00:00:00 [facility] 2020-03-04 2020-03-04 Outpatient STLMLC STLMLC [id number] Common 00:00:00 00:00:00 [facility] 2020-02-22 2020-02-22 Outpatient STLMLC STLMLC [id number] Common 00:00:00 00:00:00 [facility] 2020-02-14 2020-02-14 Outpatient STLMLC STLMLC [id number] Common 00:00:00 00:00:00 [facility] 2020-02-12 2020-02-12 Outpatient STLMLC STLMLC [id number] Common 00:00:00 00:00:00 [facility] 2020-01-17 2020-01-17 Outpatient STLMLC STLMLC [id number] Common 00:00:00 00:00:00 [facility] 2020-01-11 2020-01-11 Outpatient STLMLC STLMLC [id number] Common 00:00:00 00:00:00 [facility] 2019-12-11 2019-12-11 Outpatient STLMLC STLMLC [id number] Common 00:00:00 00:00:00 [facility] 2019-10-11 2019-10-11 [id number] Common 10:40:00 10:40:[address] [facility] 2019-10-06 2019-10-06 [facility] [id number] Common 16:26:00 16:26:[address] [facility] 2019-09-20 2019-09-20 [facility] [id number] Common 16:59:00 16:59:[address] [facility] 2019-09-15 2019-09-15 [facility] [id number] Common 16:06:00 16:06:[address] [facility] 2019-08-16 2019-08-16 [facility] [id number] Common 14:40:00 14:40:[address] [facility] 2019-06-22 2019-06-22 [facility] [id number] Common 09:40:00 09:40:[address] [facility] 2019-05-22 2019-05-22 [facility] [id number] Common 13:44:00 13:44:[address] [facility] 2019-05-18 2019-05-18 [facility] [id number] Common 13:50:00 13:50:[address] [facility] 2019-04-12 2019-04-12 [facility] [id number] Common 10:40:00 10:40:[address] [facility] 2019-01-11 2019-01-11 [facility] [id number] Common 09:40:00 09:40:[address] [facility] 2018-12-15 2018-12-15 [facility] [id number] Common 13:46:00 13:46:[address] [facility] 2018-12-13 2018-12-13 [facility] [id number] Common 16:54:00 16:54:[address] [facility] 2018-12-06 2018-12-06 [facility] [id number] Common 18:08:00 18:08:[address] [facility] 2018-12-06 2018-12-06 [facility] [id number] Common 13:04:00 13:04:[address] [facility] 2018-11-17 2018-11-17 [facility] [id number] Common 10:00:00 10:00:00 t [facility] 2018-11-16 2018-11-16 [facility] [id number] Common 14:00:00 14:00:[address] [facility] 2018-11-02 2018-11-02 Out[facility] [id number] Common 15:54:00 15:54:00 t Urgent Urgent Care S p[facility] - [facility] 2018-10-31 2018-10-31 Out[facility] [id number] Common 09:16:00 09:16:[address] [facility] 2018-10-14 2018-10-14 [facility] [id number] Common 09:56:00 09:56:[address] [facility] 2018-10-11 2018-10-11 Out[facility] [id number] Common 09:18:00 09:18:[address] [facility] 2018-10-07 2018-10-07 [facility] [id number] Common 12:52:00 12:52:[address] [facility] 2018-09-23 2018-09-23 [facility] [id number] Common 09:30:00 09:30:00 t Bone Bone [facility] Spiri t and [facility] - [facility] 2018-09-22 2018-09-22 [facility] [id number] Common 14:40:00 14:40:[address] [facility] 2018-09-12 2018-09-12 [facility] [id number] Common 14:40:00 14:40:[address] [facility] 2018-07-21 2018-07-21 [facility] [id number] Common 21:54:00 21:54:[address] [facility] 2018-07-06 2018-07-06 [facility] [id number] Common 14:29:00 14:29:[address] [facility] 2018-07-04 2018-07-04 [facility] [id number] Common 10:29:00 10:29:[address] [facility] 2018-03-14 2018-03-14 [facility] [id number] Common 14:30:00 14:30:[address] [facility] 2018-03-09 2018-03-09 [facility] [id number] Common 09:00:00 09:00:00 t Bone Bone [facility] Spiri t and [facility] - [facility] 2018-02-09 2018-02-09 [facility] [id number] Common 13:30:00 13:30:00 t Bone Bone and Spiri t and Joint [facility] - [facility] Results Test Description Test Time Test Comments Results Result Comments Source SARS-COV 2 Antigen SARS-COV 2 Antigen
[2022-08-17] MEDS ORDERED: IBUPROFEN 400 MG TAB ONE (11:55)
[2022-08-17] MEDS ORDERED: IBUPROFEN 200 MG TAB PO ONE (11:55)
[2022-08-17] MEDS ORDERED: ACETAMINOPHEN 500 MG TAB ONE (11:56)
--- NOTE | 2022-08-17 13:10 | EDPHYS ---
Physician Documentation [facility] Name: Damaris Guerrero Age: 67 yrs Sex: Female : 1955 Arrival Date: 08/17/2022 Time: 11:21 Bed DX4 Private MD: Barbra Hammer ED Physician Evert Dumont HPI: 08/17 13:11 This 67 yrs old Female presents to ER via Ambulatory with complaints of Fever, ms3 Headache, Nausea, Runny Nose. 13:11 67-year-old female with past medical history of asthma, hypercholesterolemia, ms3 hypothyroidism, osteoporosis presents for low-grade temperature. Patient states her temperature was 100.4 yesterday. Patient denies chills, nausea, vomiting, abdominal pain, diarrhea, body aches. Patient endorses cough, headache, runny nose that began yesterday.. Historical: - Allergies: 11:52 PENICILLINS; jl7 - Home Meds: 11:52 levothyroxine 75 mcg capsule [Active]; jl7 - PMHx: 11:52 Asthma; Hypercholesterolemia; Hypothyroidism; Osteoporosis; jl7 - PSHx: 11:52 [facility] Sx February 03, 2022 for Ptosis of eyelid, epiphora of both eyes, and ectropion jl7 of lower eyelids; - Immunization history:: Adult Immunizations unknown. - Social history:: Smoking status: Patient denies any tobacco usage or history of. ROS: 13:11 Neck: Negative for injury, pain, and swelling, Cardiovascular: Negative for chest pain, ms3 and palpitations. 13:11 MS/Extremity: Negative for injury and deformity, Skin: Negative for injury, rash, and discoloration. 13:11 Constitutional: Positive for fever, Negative for body aches, chills. 13:11 ENT: Positive for nasal discharge, rhinorrhea. 13:11 Respiratory: Positive for cough. 13:11 All other systems are negative. Exam: 13:11 Constitutional: This is a well developed, well nourished patient who is awake, alert, ms3 and in no acute distress. Head/Face: Normocephalic, atraumatic. 13:11 Cardiovascular: Regular rate and rhythm with a normal S1 and S2. No gallops, murmurs, or rubs. Normal PMI, no JVD. No pulse deficits. Respiratory: Lungs have equal breath sounds bilaterally, clear to auscultation and percussion. No rales, rhonchi or wheezes noted. No increased work of breathing, no retractions or nasal flaring. Abdomen/GI: Soft, non-tender, with normal bowel sounds. No distension or tympany. No guarding or rebound. No evidence of tenderness throughout. Skin: Warm, dry with normal turgor. Normal color with no rashes, no lesions, and no evidence of cellulitis. MS/ Extremity: Pulses equal, no cyanosis. Neurovascular intact. Full, normal range of motion. 13:11 ENT: Nose: nasal drainage, and is seen coming from both nares, that is clear. Vital Signs: 11:51 BP 108 / 69; Pulse 87; Resp 17; Temp 100.2; Pulse Ox 100% ; Pain 8/10; jl7 11:51 Pain Scale: Adult jl7 MDM: 11:43 Patient medically screened. ms3 13:11 Differential diagnosis: viral Infection, URI, COVID vs Flu. ms3 13:15 Data reviewed: vital signs, nurses notes, lab test result(s), and as a result, I will ms3 discharge patient. I considered the following discharge prescriptions or medication management in the emergency department Medications were administered in the Emergency Department. See MAR. Care significantly affected by the following chronic conditions: Asthma. Counseling: I had a detailed discussion with the patient and/or guardian regarding: the historical points, exam findings, and any diagnostic results supporting the discharge/admit diagnosis, lab results, the need for outpatient follow up, to return to the emergency department if symptoms worsen or persist or if there are any questions or concerns that arise at home. Response to treatment: the patient's symptoms have mildly improved after treatment, and as a result, I will discharge patient. Special discussion: I discussed with the patient/guardian in detail that at this point there is no indication for admission to the hospital. It is understood, however, that if the symptoms persist or worsen the patient needs to return immediately for re-evaluation. 08/17 11:43 Order name: Flu; Complete Time: 13:00 ms3 08/17 11:43 Order name: COVID-19 SARS RT PCR; Complete Time: 13:08 ms3 Administered Medications: 11:50 Drug: Acetaminophen PO 1000 mg Route: PO; jl7 11:50 Drug: Ibuprofen PO 600 mg Route: PO; jl7 Disposition Summary: 08/17/22 13:08 Discharge Ordered Location: Home ms3 Condition: Stable ms3 Diagnosis - SARS-associated coronavirus as the cause of diseases classified elsewhere ms3 - Chills (without fever) ms3 - Cough ms3 Followup: ms3 - With: Barbra Hammer - When: 2 - 3 days - Reason: Recheck today's complaints Discharge Instructions: - Discharge Summary Sheet ms3 - Cough, Adult ms3 - COVID-19 ms3 - 10 Things You Can Do to Manage Your COVID-19 Symptoms at Home - [facility] (09/20/2020) ms3 Forms: - Medication Reconciliation Form ms3 - Thank You Letter ms3 - Antibiotic Education ms3 - Prescription Opioid Use ms3 Signatures: Dispatcher [employer] Vega Mix, RN RN jl7 Evert Dumont DO DO ms3
--- NOTE | 2022-08-17 13:10 | ER ---
Nurse's Notes [facility] Name: Damaris Guerrero Age: 67 yrs Sex: Female : 1955 Arrival Date: 08/17/2022 Time: 11:21 Bed DX4 Private MD: Barbra Hammer Diagnosis: SARS-associated coronavirus as the cause of diseases classified elsewhere;Chills (without fever);Cough Presentation: 08/17 11:51 Chief complaint: Patient states: fever, CAVANAUGH, runny nose since yesterday. Coronavirus jl7 screen: fever, Client presents with at least one sign or symptom that may indicate coronavirus-19. Ebola Screen: No symptoms or risks identified at this time. Initial Sepsis Screen: Does the patient meet any 2 criteria? No. Patient's initial sepsis screen is negative. Does the patient have a suspected source of infection? No. Patient's initial sepsis screen is negative. Risk Assessment: Do you want to hurt yourself or someone else? Patient reports no desire to harm self or others. Onset of symptoms was August 16, 2022. 11:51 Method Of Arrival: Ambulatory jl7 11:51 Acuity: KARLY 4 jl7 Historical: - Allergies: 11:52 PENICILLINS; jl7 - Home Meds: 11:52 levothyroxine 75 mcg capsule [Active]; jl7 - PMHx: 11:52 Asthma; Hypercholesterolemia; Hypothyroidism; Osteoporosis; jl7 - PSHx: 11:52 Indra Eye Sx February 03, 2022 for Ptosis of eyelid, epiphora of both eyes, and ectropion jl7 of lower eyelids; - Immunization history:: Adult Immunizations unknown. - Social history:: Smoking status: Patient denies any tobacco usage or history of. Vital Signs: 11:51 BP 108 / 69; Pulse 87; Resp 17; Temp 100.2; Pulse Ox 100% ; Pain 8/10; jl7 11:51 Pain Scale: Adult jl7 ED Course: 11:25 Patient arrived in ED. mr 11:25 Barbra Hammer is Private Physician. mr 11:29 Evert Dumont DO is Attending Physician. ms3 11:52 Triage completed. jl7 11:52 Arm band placed on right wrist. Patient placed in waiting room, Patient notified of jl7 wait time. 13:08 Barbra Hammer is Referral Physician. ms3 Administered Medications: 11:50 Drug: Acetaminophen PO 1000 mg Route: PO; jl7 11:50 Drug: Ibuprofen PO 600 mg Route: PO; jl7 Outcome: 13:08 Discharge ordered by . ms3 13:27 Patient left the ED. Signatures: Brittany Sauceda mr Madeline Valencia RN RN ss Vega Hicks RN RN jl7 Evert Dumont DO DO ms3
[2022-08-17 13:44] VITALS: BP 108/69; TEMP 100.2; O2SAT 100
== END 2022-08-17 13:27 | disposition home or self-care (01) ==
LOC: ER 11:21
DX: U07.1 COVID-19 (principal); R05.9 Cough, unspecified; E03.9 Hypothyroidism, unspecified; Z88.0 Allergy status to penicillin
CPT/HCPCS: 87635; 87804; 99282

== ENCOUNTER 2023-01-01 14:18 | Emergency (ER) | payer OTHER ==
--- OUTSIDE RECORDS SUMMARY | 2023-01-01 14:25 | XMS REPORT | Continuity of Care Document ---
:1955 Author Organization [facility] t Address [address] [facility] [address] [place] [address] Care Team Providers Name Role Phone Opal Arellano Primary Care Physician [phone] Barbra Hammer Attending Clinician Unavailable KARINA HERNANDEZ Attending Clinician Unavailable Sumeet Paul Attending Clinician JOSE Attending Clinician Unavailable SUMEET MARIE Attending Clinician Unavailable Doctor Unassigned, Emet Attending Clinician Unavailable KARINA HERNANDEZ Admitting Clinician Unavailable JOSE Admitting Clinician Unavailable Payers Payer Name Policy Type Policy Number Effective Date Expiration Date S gricelda [facility] [employer] [id number] 2020 00:00:00 [facility] [id number] 2020 Common Spiri t Advantage 00:00:00 - [facility] (HMO-POS) [facility] Problems Condition Condition Condition Status Onset Resolution Last Treating Co mments Source Name Details Category Date Date Treatment Clinician Date [id number] Acquired Problem Comm on hypothyroi Spirit dism [facility] Routine Routine Problem Common eye exam eye exam [facility] [id number] Environmen Problem Co mmon ayush and Spirit seasonal - CHI allergies [facility] [id number] Screening Problem Com mon mammogram, [facility] encounter - 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 [facility] by [facility] dermatophy [facility] [id number] Acute Problem Common rhinitis [facility] [id number] Fever and Problem Com mon chills [facility] [id number] COVID Problem Common [facility] [id number] Sinus Problem Common headache [facility] [id number] Eczema, Problem Common unspecifie [facility] d type [facility] [id number] Mild Problem Common intermitte Spirit nt asthma - [facility] Allergic Allergic Problem Commo n rhinitis rhinitis, Spiri t unspecifie - CHI d [facility] [id number] Intrinsic Problem Comm on eczema [facility] [id number] Nontraumat Problem Co mmon ic tear of Spirit right - [facility] rotator [facility] unspecifie Medica l d tear Center extent Osteoporos Osteoporos Problem C ommon is is [facility] Hypothyroi Hypothyroi Problem C ommon dism dism [facility] Hyperlipid Hyperlipid Problem C ommon emia emia [facility] [id number] Vitamin D Problem Comm on insufficie Spirit ncy - [facility] No known No known Disease Unive rs active active ity of problems problems [facility] Allergies, Adverse Reactions, Alerts Allergy Allergy Status Severity Reaction(s) Onset Inactive Treating Comm ents Source Name Type Date Date Clinician Codeine Codeine Active vomiting Common Spirit [facility] NO KNOWN Drug Active Univers ALLERGIE Class ity of S [facility] Social History Social Habit Start Date Stop Date Quantity Comments Source History of Common Spirit - Tobacco Use [facility] Sex Assigned At Common Sp guillermina - [facility] Exposure to Not sure University of SARS-CoV-2 [facility] (event) [place] Tobacco use and 2021-06-18 2021-06-18 Smokeless tobacco Un iversity of exposure 00:00:00 00:00:00 non-user [facility] Alcohol intake 2021-06-18 2021-06-18 0 /d University of 00:00:00 00:00:00 [facility] Smoking Status Start Date Stop Date Source Never Smoker [facility] Spirit [facility] Medications Ordered Filled Start Stop Current Ordering Indication Dosage Frequency Signature Comments Components Source Medication Medication Date Date Medication? Clinician (SIG) Name Name Pseudoeph-B Pseudoeph-B 2022-0 No 5{ml} QID Pseudoeph- romphen-DM romphen-DM 4-21 Bromphen-D 00:00: M 30-2-10 MG/5ML MG/5ML 00 MG/5ML Pseudoeph-B Pseudoeph-B 2022-0 No 5{ml} QID Pseudoeph- romphen-DM romphen-DM 4-21 Bromphen-D 00:00: M 30-2-10 MG/5ML MG/5ML 00 MG/5ML Pseudoeph-B Pseudoeph-B 3-0 No 5{ml} QID Pseudoeph- romphen-DM romphen-DM 4-21 Bromphen-D 00:00: M 30-2-10 MG/5ML MG/5ML 00 MG/5ML Pseudoeph-B Pseudoeph-B 3-0 No 5{ml} QID Pseudoeph- romphen-DM romphen-DM 4-21 Bromphen-D 00:00: M 30-2-10 MG/5ML MG/5ML 00 MG/5ML Pseudoeph-B Pseudoeph-B 3-0 No 5{ml} QID Pseudoeph- romphen-DM romphen-DM 4-21 Bromphen-D 30-2-10 30-2-10 00:00: M 30-2-10 MG/5ML MG/5ML 00 MG/5ML Pseudoeph-B Pseudoeph-B No 5{ml} QID Pseudoeph- romphen-DM romphen-DM 4-21 Bromphen-D 00:00: M 30-2-10 MG/5ML MG/5ML 00 MG/5ML Pseudoeph-B Pseudoeph-B 0 No 5{ml} QID Pseudoeph- romphen-DM romphen-DM 4-21 Bromphen-D 00:00: M 30-2-10 MG/5ML MG/5ML 00 MG/5ML Levothyroxi Levothyroxi No QD Levothyrox ne Sodium ne Sodium 2-20 ine Sodium 50 MCG 50 MCG 00:00: 50 MCG 00 Levothyroxi Levothyroxi 0 No QD Levothyrox ne Sodium ne Sodium 2-20 ine Sodium 50 MCG 50 MCG 00:00: 50 MCG 00 Levothyroxi Levothyroxi 0 No QD Levothyrox ne Sodium ne Sodium 2-20 ine Sodium 50 MCG 50 MCG 00:00: 50 MCG 00 Levothyroxi Levothyroxi No QD Levothyrox ne Sodium ne Sodium 2-20 ine Sodium 50 MCG 50 MCG 00:00: 50 MCG 00 Levothyroxi Levothyroxi 0 No QD Levothyrox ne Sodium ne Sodium 2-20 ine Sodium 50 MCG 50 MCG 00:00: 50 MCG 00 Levothyroxi Levothyroxi 0 No QD Levothyrox ne Sodium ne Sodium 2-20 ine Sodium 50 MCG 50 MCG 00:00: 50 MCG 00 Levothyroxi Levothyroxi 0 No QD Levothyrox ne Sodium ne Sodium 2-20 ine Sodium 50 MCG 50 MCG 00:00: 50 MCG 00 Mupirocin 2 Mupirocin 2 2021- No 1{appli BID Mupirocin % % 6-24 06-29 cation} 2 % 00:00: 00:00 00 :00 pravastatin 2021-0 Yes 40mg Take 40 mg Univers (PRAVACHOL) [...] 4-13 into ity of VAGINAL) 12:18: vagina. [place] 30 Medical Branch PROGESTERON Yes Univer s [...] -13 into ity of VAGINAL) 12:18: vagina. 30 [...] 12:18: mouth. [place] Tab 30 Medical Branch mupirocin 2 Yes [id number] Apply to Univers % ointment 06-18 [id number] area(s) 3 it y of 00:00: (three) [place] 00 times Medical daily. Branch mupirocin 2 Yes [id number] Apply to Univers % ointment 06-18 [id number] area(s) 3 it y of 00:00: (three) [place] 00 times Medical daily. Branch cephALEXin 2021- No [id number] 500mg Take 1 Univers (KEFLEX) 06-18 [id number] capsule by it y of 500 mg 00:00: 04:59 mouth 4 [place] capsule 00 :00 (four) Medical times Branch daily for 10 days. EUTHYROX 75 Yes TAKE 1 Univ ers mcg tablet 3-10 TABLET BY ity of 00:00: MOUTH IN [place] 00 THE Medical MORNING ON Branch AN EMPTY STOMACH ONCE DAILY WEDNESDAY - WEDNESDAY SKIP WEDNESDAY. EUTHYROX 75 Yes TAKE 1 Univ ers mcg tablet 3-10 TABLET BY ity of 00:00: MOUTH IN [place] 00 THE Medical MORNING ON Branch AN EMPTY STOMACH ONCE DAILY WEDNESDAY - WEDNESDAY SKIP WEDNESDAY. methylPREDN methylPREDN 2021- No methylPRED ISolone 4 ISolone 4 -05-16 NISolone 4 MG MG 00:00: 00:00 MG [...] 2021- No 5{ml_as QID Pseudoeph- romphen-DM romphen-DM 17 09 _needed Bromphen-D 30-1-20 30-1-20 00:00: 00:00 } M 30-1-20 MG/5ML MG/5ML 00 :00 MG/5ML alendronate 2-0 Yes 70mg Take 70 mg Univers 70 mg 1-18 by mouth ity of tablet 00:00: weekly. [address] alendronate 2-0 Yes 70mg Take 70 mg Univers 70 mg 1-18 by mouth ity of tablet 00:00: weekly. [address] Kenalog Kenalog 2020- No 40mg Common (Triamcinol (Triamcinol 0-05 S pirit one) one) 00:00: - CHI 00 [facility] Bupivicaine Bupivicaine 2020-1 No 5mg Common [place] 0-05 Spirit 00:00: - CHI 00 [facility] Kenalog Kenalog 2020-1 No 40mg Common (Triamcinol (Triamcinol 0-05 S pirit one) one) 00:00: - CHI 00 [facility] Bupivicaine Bupivicaine 2020-1 No 5mg Common [place] 0-05 Spirit 00:00: - CHI 00 [facility] Kenalog Kenalog 2020-1 No 40mg Common (Triamcinol (Triamcinol 0-05 S pirit one) one) 00:00: - CHI 00 [facility] Bupivicaine Bupivicaine 2020-1 No 5mg Common [place] 0-05 Spirit 00:00: - CHI 00 [facility] Kenalog Kenalog 2020-1 No 40mg Common (Triamcinol (Triamcinol 0-05 S pirit one) one) 00:00: - CHI 00 [facility] Bupivicaine Bupivicaine 2020-1 No 5mg Common [place] 0-05 Spirit 00:00: - CHI 00 [facility] Kenalog Kenalog 2020-1 No 40mg Common (Triamcinol (Triamcinol 0-05 S pirit one) one) 00:00: - CHI 00 [facility] Bupivicaine Bupivicaine 2020-1 No 5mg Common [place] 0-05 Spirit 00:00: - CHI 00 [facility] Kenalog Kenalog 2020-1 No 40mg Common (Triamcinol (Triamcinol 0-05 S pirit one) one) 00:00: - CHI 00 [facility] Bupivicaine Bupivicaine 2020-1 No 5mg Common [place] 0-05 Spirit 00:00: - CHI 00 [facility] Kenalog Kenalog 2020-1 No 40mg Common (Triamcinol (Triamcinol 0-05 S pirit one) one) 00:00: - CHI 00 [facility] Bupivicaine Bupivicaine 2020-1 No 5mg Common [place] 0-05 Spirit 00:00: - CHI 00 [facility] Kenalog Kenalog 2020-1 No 40mg Common (Triamcinol (Triamcinol 0-05 S pirit one) one) 00:00: - CHI 00 [facility] Bupivicaine Bupivicaine 2020-1 No 5mg Common [place] 0-05 Spirit 00:00: - CHI 00 [facility] Kenalog Kenalog 2020-1 No 40mg Common (Triamcinol (Triamcinol 0-05 S pirit one) one) 00:00: - CHI 00 [facility] Bupivicaine Bupivicaine 2020-1 No 5mg Common [place] 0-05 Spirit 00:00: - CHI 00 [facility] Kenalog Kenalog 2020-1 No 40mg Common (Triamcinol (Triamcinol 0-05 S pirit one) one) 00:00: - CHI 00 [facility] Bupivicaine Bupivicaine 2020-1 No 5mg Common [place] 0-05 Spirit 00:00: - CHI 00 [facility] Kenalog Kenalog 2020-1 No 40mg Common (Triamcinol (Triamcinol 0-05 S pirit one) one) 00:00: - CHI 00 [facility] Bupivicaine Bupivicaine 2020-1 No 5mg Common [place] 0-05 Spirit 00:00: - CHI 00 [facility] Kenalog Kenalog 2020-1 No 40mg Common (Triamcinol (Triamcinol 0-05 S pirit one) one) 00:00: - CHI 00 [facility] Bupivicaine Bupivicaine 2020-1 No 5mg Common [place] 0-05 Spirit 00:00: - CHI 00 [facility] Kenalog Kenalog 2020- No 40mg Common (Triamcinol (Triamcinol 0-05 S pirit one) one) 00:00: - CHI 00 [facility] Bupivicaine Bupivicaine 2020-1 No 5mg Common [place] 0-05 Spirit 00:00: - CHI 00 [facility] Kenalog Kenalog 2020- No 40mg Common (Triamcinol (Triamcinol 0-05 S pirit one) one) 00:00: - CHI 00 [facility] Bupivicaine Bupivicaine 2020- No 5mg Common [place] 0-05 Spirit 00:00: - CHI 00 [facility] Kenalog Kenalog 2020- No 40mg Common (Triamcinol (Triamcinol 0-05 S pirit one) one) 00:00: - CHI 00 [facility] Bupivicaine Bupivicaine 2020- No 5mg Common [place] 0-05 Spirit 00:00: - CHI 00 [facility] Kenalog Kenalog 2020-1 No 40mg Common (Triamcinol (Triamcinol 0-05 S pirit one) one) 00:00: - CHI 00 [facility] Bupivicaine Bupivicaine 2020-1 No 5mg Common [place] 0-05 Spirit 00:00: - CHI 00 [facility] Kenalog Kenalog 2020-1 No 40mg Common (Triamcinol (Triamcinol 0-05 S pirit one) one) 00:00: - CHI 00 [facility] Bupivicaine Bupivicaine 2020-1 No 5mg Common [place] 0-05 Spirit 00:00: - CHI 00 [facility] Kenalog Kenalog 2020-1 No 40mg Common (Triamcinol (Triamcinol 0-05 S pirit one) one) 00:00: - CHI 00 [facility] Bupivicaine Bupivicaine 2020-1 No 5mg Common [place] 0-05 Spirit 00:00: - CHI 00 [facility] Albuterol Albuterol 2020-0 Yes Barbra 3 ml as Common Sulfate Sulfate 6-10 [place] needed Spirit 00:00: - CHI 00 [facility] Albuterol Albuterol 2019-0 No 3{ml_as QID Albuterol [...] 00 MG/3ML) 0.083% 0.083% 0.083% Triamcinolo Triamcinolo 2020-0 Yes Barbra 1 Common ne ne 4-16 [place] applicatio Spirit Acetonide Acetonide 00:00: n - C HI 00 [facility] Triamcinolo Triamcinolo 2020-0 No 1{appli Triamcinol ne [...] pirit one) one) 00:00: - CHI 00 [facility] Dexamethaso Dexamethaso 2020-0 No 8mg Common ne ne 4-16 Spirit 00:00: - CHI 00 [facility] Triamcinolo Triamcinolo 2020-0 No 1{appli Triamcinol ne ne 4-16 cation} one Acetonide Acetonide 00:00: Acetonide 0.1 % 0.1 % 00 0.1 % Kenalog Kenalog 2020-0 No 80mg Common (Triamcinol (Triamcinol 4-16 S pirit one) one) 00:00: - CHI 00 [facility] Dexamethaso Dexamethaso 2020-0 No 8mg Common ne ne 4-16 Spirit 00:00: - CHI 00 [facility] Triamcinolo Triamcinolo 2020-0 No 1{appli Triamcinol ne ne 4-16 cation} one Acetonide Acetonide 00:00: Acetonide 0.1 % 0.1 % 00 0.1 % Kenalog Kenalog 2020-0 No 80mg Common (Triamcinol (Triamcinol 4-16 S pirit one) one) 00:00: - CHI 00 [facility] Dexamethaso Dexamethaso 2020-0 No 8mg Common ne ne 4-16 Spirit 00:00: - CHI 00 [facility] Triamcinolo Triamcinolo 2020-0 No 1{appli Triamcinol ne ne 4-16 cation} one Acetonide Acetonide 00:00: Acetonide 0.1 % 0.1 % 00 0.1 % Kenalog Kenalog 2020-0 No 80mg Common (Triamcinol (Triamcinol 4-16 S pirit one) one) 00:00: - CHI 00 [facility] Dexamethaso Dexamethaso 2020-0 No 8mg Common ne ne 4-16 Spirit 00:00: - CHI 00 [facility] Triamcinolo Triamcinolo 2020-0 No 1{appli Triamcinol ne ne 4-16 cation} one Acetonide Acetonide 00:00: Acetonide 0.1 % 0.1 % 00 0.1 % Kenalog Kenalog 2020-0 No 80mg Common (Triamcinol (Triamcinol 4-16 S pirit one) one) 00:00: - CHI 00 [facility] Dexamethaso Dexamethaso 2020-0 No 8mg Common ne ne 4-16 Spirit 00:00: - CHI 00 [facility] Triamcinolo Triamcinolo 2020-0 No 1{appli Triamcinol ne ne 4-16 cation} one Acetonide Acetonide 00:00: Acetonide 0.1 % 0.1 % 00 0.1 % Kenalog Kenalog 2020-0 No 80mg Common (Triamcinol (Triamcinol 4-16 S pirit one) one) 00:00: - CHI 00 [facility] Dexamethaso Dexamethaso 2020-0 No 8mg Common ne ne 4-16 Spirit 00:00: - CHI 00 [facility] Triamcinolo Triamcinolo 2020-0 No 1{appli Triamcinol ne ne 4-16 cation} one Acetonide Acetonide 00:00: Acetonide 0.1 % 0.1 % 00 0.1 % Kenalog Kenalog 2020-0 No 80mg Common (Triamcinol (Triamcinol 4-16 S pirit one) one) 00:00: - CHI 00 [facility] Dexamethaso Dexamethaso 2020-0 No 8mg Common ne ne 4-16 Spirit 00:00: - CHI 00 [facility] Triamcinolo Triamcinolo 2020-0 No 1{appli Triamcinol ne ne 4-16 cation} one Acetonide Acetonide 00:00: Acetonide 0.1 % 0.1 % 00 0.1 % Kenalog Kenalog 2020-0 No 80mg Common (Triamcinol (Triamcinol 4-16 S pirit one) one) 00:00: - CHI 00 [facility] Dexamethaso Dexamethaso 2020-0 No 8mg Common ne ne 4-16 Spirit 00:00: - CHI 00 [facility] Triamcinolo Triamcinolo 2020-0 No 1{appli Triamcinol ne ne 4-16 cation} one Acetonide Acetonide 00:00: Acetonide 0.1 % 0.1 % 00 0.1 % Kenalog Kenalog 2020-0 No 80mg Common (Triamcinol (Triamcinol 4-16 S pirit one) one) 00:00: - CHI 00 [facility] Dexamethaso Dexamethaso 2020-0 No 8mg Common ne ne 4-16 Spirit 00:00: - CHI 00 [facility] Triamcinolo Triamcinolo 2020-0 No 1{appli Triamcinol ne ne 4-16 cation} one Acetonide Acetonide 00:00: Acetonide 0.1 % 0.1 % 00 0.1 % Kenalog Kenalog 2020-0 No 80mg Common (Triamcinol (Triamcinol 4-16 S pirit one) one) 00:00: - CHI 00 [facility] Dexamethaso Dexamethaso 2020-0 No 8mg Common ne ne 4-16 Spirit 00:00: - CHI 00 [facility] Triamcinolo Triamcinolo 2020-0 No 1{appli Triamcinol ne ne 4-16 cation} one Acetonide Acetonide 00:00: Acetonide 0.1 % 0.1 % 00 0.1 % Kenalog Kenalog 2020-0 No 80mg Common (Triamcinol (Triamcinol 4-16 S pirit one) one) 00:00: - CHI 00 [facility] Dexamethaso Dexamethaso 2020-0 No 8mg Common ne ne 4-16 Spirit 00:00: - CHI 00 [facility] Triamcinolo Triamcinolo 2020-0 No 1{appli Triamcinol ne ne 4-16 cation} one Acetonide Acetonide 00:00: Acetonide 0.1 % 0.1 % 00 0.1 % Kenalog Kenalog 2020-0 No 80mg Common (Triamcinol (Triamcinol 4-16 S pirit one) one) 00:00: - CHI 00 [facility] Dexamethaso Dexamethaso 2020-0 No 8mg Common ne ne 4-16 Spirit 00:00: - CHI 00 [facility] Triamcinolo Triamcinolo 2020-0 No 1{appli Triamcinol ne ne 4-16 cation} one Acetonide Acetonide 00:00: Acetonide 0.1 % 0.1 % 00 0.1 % Kenalog Kenalog 2020-0 No 80mg Common (Triamcinol (Triamcinol 4-16 S pirit one) one) 00:00: - CHI 00 [facility] Dexamethaso Dexamethaso 2020-0 No 8mg Common ne ne 4-16 Spirit 00:00: - CHI 00 [facility] Triamcinolo Triamcinolo 2020-0 No 1{appli Triamcinol ne ne 4-16 cation} one Acetonide Acetonide 00:00: Acetonide 0.1 % 0.1 % 00 0.1 % Kenalog Kenalog 2020-0 No 80mg Common (Triamcinol (Triamcinol 4-16 S pirit one) one) 00:00: - CHI 00 [facility] Dexamethaso Dexamethaso 2020-0 No 8mg Common ne ne 4-16 Spirit 00:00: - CHI 00 [facility] Triamcinolo Triamcinolo 2020-0 No 1{appli Triamcinol ne ne 4-16 cation} one Acetonide Acetonide 00:00: Acetonide 0.1 % 0.1 % 00 0.1 % Kenalog Kenalog 2020-0 No 80mg Common (Triamcinol (Triamcinol 4-16 S pirit one) one) 00:00: - CHI 00 [facility] Dexamethaso Dexamethaso 2020-0 No 8mg Common ne ne 4-16 Spirit 00:00: - CHI 00 [facility] Triamcinolo Triamcinolo 2020-0 No 1{appli Triamcinol ne ne 4-16 cation} one Acetonide Acetonide 00:00: Acetonide 0.1 % 0.1 % 00 0.1 % Kenalog Kenalog 2020-0 No 80mg Common (Triamcinol (Triamcinol 4-16 S pirit one) one) 00:00: - CHI 00 [facility] Dexamethaso Dexamethaso 2020-0 No 8mg Common ne ne 4-16 Spirit 00:00: - CHI 00 [facility] Triamcinolo Triamcinolo 2020-0 No 1{appli Triamcinol ne ne 4-16 cation} one Acetonide Acetonide 00:00: Acetonide 0.1 % 0.1 % 00 0.1 % Kenalog Kenalog 2019-0 No 80mg Common (Triamcinol (Triamcinol 4-16 S pirit one) one) 00:00: - CHI [facility] Dexamethaso Dexamethaso 2020-0 No 8mg Common ne ne 4-16 Spirit 00:00: - CHI [facility] Triamcinolo Triamcinolo 2019-0 No 1{appli Triamcinol ne ne 4-16 cation} one Acetonide Acetonide 00:00: Acetonide 0.1 % 0.1 % 00 0.1 % Kenalog Kenalog 2019-0 No 80mg Common (Triamcinol (Triamcinol 4-16 S pirit one) one) 00:00: - CHI [facility] Dexamethaso Dexamethaso 2019-0 No 8mg Common ne ne 4-16 Spirit 00:00: - CHI [facility] Albuterol Albuterol Yes Barbra 2 puffs as Common Sulfate HFA Sulfate HFA 9-11 [place] needed Spirit 00:00: - CHI [facility] loratadine Yes 10mg Take 10 mg U [...] mouth ity of 10 mg 09:21: daily. [place] tablet 52 Medical Branch ALBUTEROL Yes Inhale. [...] 7-20 into ity of VAGINAL) 09:21: vagina. [place] [address] Medical Branch PROGESTERON Yes Univer s E MISC 7-20 ity of 09:21: [address] Branch pravastatin Yes 40mg Take 40 mg Univers (PRAVACHOL) 7-20 by mouth ity of 40 mg 09:21: at [place] tablet 52 bedtime. Medical Branch TRIAMCINOLO Yes [id number] APPLY TO Univers NE 6-29 AFFECTED ity of ACETONIDE 00:00: AREAS [place] 0.1 % cream 00 TWICE A Medic al DAY Branch TRIAMCINOLO Yes [id number] APPLY TO Univers NE 6-29 AFFECTED ity of ACETONIDE 00:00: AREAS [place] 0.1 % cream 00 TWICE A Medic al DAY Branch TRIAMCINOLO Yes [id number] APPLY TO Univers NE 6-29 AFFECTED ity of ACETONIDE 00:00: AREAS [place] 0.1 % cream 00 TWICE A Medic al DAY Branch fluocinonid Yes [id number] Apply 3-5 Univers e 0.05 % 3-21 drops to ity of solution 00:00: affected 00 areas in Medical scalp Branch BIDprn fluocinonid Yes [id number] Apply 3-5 Univers e 0.05 % 3-21 drops to ity of solution 00:00: affected 00 areas in Medical scalp Branch BIDprn fluocinonid Yes [id number] Apply 3-5 Univers e 0.05 % 3-21 drops to ity of solution 00:00: affected 00 areas in Medical scalp Branch BIDprn Cyanocobala 2015-[address] Uni vers min - 2,500 mcg ity of (VITAMIN 08:33: [place] the [place] B-12) 1,000 40 tongue. Medic al mcg Branch sublingual tablet Biotin 2015-03 Yes 1000ug Take 1,000 Uni vers (APPEAREX) 1-29 mcg by ity of 2,500 mcg 08:33: mouth. [place] Tab 40 Medical Branch triamcinolo 2015-03 Yes [id number] Apply to Univers ne 1-29 rash on ity of acetonide 00:00: [place] (KENALOG) 00 ankles BID Medi mehrdad 0.1 % until Branch ointment clear, then prn triamcinolo 2015-03 Yes [id number] Apply to Univers ne 1-29 rash on ity of acetonide 00:00: [place] (KENALOG) 00 ankles BID Medi mehrdad 0.1 % until Branch ointment clear, then prn triamcinolo 2015-03 Yes [id number] Apply to Univers ne 1-29 rash on ity of acetonide 00:00: [place] (KENALOG) 00 ankles BID Medi mehrdad 0.1 % until Branch ointment clear, then prn fluocinonid Yes [id number] Apply to Univers e (LIDEX) 9-27 area(s) 2 ity o f 0.05 % 00:00: (two) [place] cream 00 times Medical daily. Do Branch not apply to face, groin or underarms. fluocinonid Yes [id number] Apply to Univers e (LIDEX) 9-27 area(s) 2 ity o f 0.05 % 00:00: (two) [place] cream 00 times Medical daily. Do Branch not apply to face, groin or underarms. fluocinonid Yes [id number] Apply to Univers e (LIDEX) 9-27 area(s) 2 ity o f 0.05 % 00:00: (two) [place] cream 00 times Medical daily. Do Branch not apply to face, groin or underarms. Montelukast Montelukast Yes Barbra 1 tablet Common Sodium Sodium [place] [facility] Vitamin Vitamin Yes Barbra 1 tablet Comm on B-12 ER B-12 ER [place] [facility] CHI [facility] TOBACCO WEIGHER Thyroid TOBACCO WEIGHER Thyroid Yes Barbra 1 tablet Common [place] on an Spirit empty - CHI stomach [facility] Cetirizine Cetirizine Yes Barbra 1 tablet Common HCl HCl [place] [facility] Qvar Qvar Yes Barbra 1-2 puffs Common RediHaler RediHaler [place] [facility] Alendronate Alendronate Yes Barbra 1 tablet Common Sodium Sodium [facility] Pravastatin Pravastatin Yes Barbra 1 tablet Common Sodium Sodium [facility] Progesteron Progesteron No Progestero e 100 MG [...] ER 2000 MCG 2000 MCG 2000 MCG Vitamin Vitamin No 1{table QD Vitamin B-12 ER B-12 ER t} B-12 ER 2000 MCG 2000 MCG 2000 MCG Opzelura Opzelura No 1{appli BID Opzelura 1.5 % 1.5 % cation} 1.5 % Albuterol Albuterol No Albuterol Sulfate HFA Sulfate [...] MG e) 10 MG Arnuity Arnuity No Arnuity Ellipta 100 Ellipta 100 Ellipta MCG/ACT MCG/ACT 100 MCG/ACT Montelukast Montelukast No 1{table QD Montelukas Sodium 10 Sodium 10 t} t Sodium MG MG 10 MG Vitamin Vitamin No 1{table QD Vitamin B-12 ER B-12 ER t} B-12 ER 2000 MCG 2000 MCG 2000 MCG Opzelura Opzelura No 1{appli BID Opzelura 1.5 % 1.5 % cation} 1.5 % Albuterol Albuterol No Albuterol Sulfate HFA Sulfate [...] MG e) 10 MG Arnuity Arnuity No Arnuity Ellipta 100 Ellipta 100 Ellipta MCG/ACT MCG/ACT 100 MCG/ACT Montelukast Montelukast No 1{table QD Montelukas Sodium 10 Sodium 10 t} t Sodium MG MG 10 MG Vitamin Vitamin No 1{table QD Vitamin B-12 ER B-12 ER t} B-12 ER 2000 MCG 2000 MCG 2000 MCG Opzelura Opzelura No 1{appli BID Opzelura 1.5 % 1.5 % cation} 1.5 % Albuterol Albuterol No Albuterol Sulfate HFA Sulfate [...] MG e) 10 MG Arnuity Arnuity No Arnuity Ellipta 100 Ellipta 100 Ellipta MCG/ACT MCG/ACT 100 MCG/ACT Montelukast Montelukast No 1{table QD Montelukas Sodium 10 Sodium 10 t} t Sodium MG MG 10 MG Vitamin Vitamin No 1{table QD Vitamin B-12 ER B-12 ER t} B-12 ER 2000 MCG 2000 MCG 2000 MCG Opzelura Opzelura No 1{appli BID Opzelura 1.5 % 1.5 % cation} 1.5 % Albuterol Albuterol No Albuterol Sulfate HFA Sulfate [...] MG e) 10 MG Arnuity Arnuity No Arnuity Ellipta 100 Ellipta 100 Ellipta MCG/ACT MCG/ACT 100 MCG/ACT Montelukast Montelukast No 1{table QD Montelukas Sodium 10 Sodium 10 t} t Sodium MG MG 10 MG Vitamin Vitamin No 1{table QD Vitamin B-12 ER B-12 ER t} B-12 ER 2000 MCG 2000 MCG 2000 MCG Opzelura Opzelura No 1{appli BID Opzelura 1.5 % 1.5 % cation} 1.5 % Albuterol Albuterol No Albuterol Sulfate HFA Sulfate [...] MG e) 10 MG Arnuity Arnuity No Arnuity Ellipta 100 Ellipta 100 Ellipta MCG/ACT MCG/ACT 100 MCG/ACT Montelukast Montelukast No 1{table QD Montelukas Sodium 10 Sodium 10 t} t Sodium MG MG 10 MG Vitamin Vitamin No 1{table QD Vitamin B-12 ER B-12 ER t} B-12 ER 2000 MCG 2000 MCG 2000 MCG Opzelura Opzelura No 1{appli BID Opzelura 1.5 % 1.5 % cation} 1.5 % Albuterol Albuterol No Albuterol Sulfate HFA Sulfate [...] MG e) 10 MG Arnuity Arnuity No Arnuity Ellipta 100 Ellipta 100 Ellipta MCG/ACT MCG/ACT 100 MCG/ACT Montelukast Montelukast No 1{table QD Montelukas Sodium 10 Sodium 10 t} t Sodium MG MG 10 MG Pravastatin Pravastatin No QD Pravastati Sodium 40 [...] Status Commen ts Source Name Name Bupivicaine [place] Bupivicaine [place] 2019-12-11 Completed [facility] 11:29:00 [facility] Bupivicaine [place] Bupivicaine [place] 2019-12-11 Completed [facility] 11:29:00 [facility] Kenalog Kenalog 2019-12-11 Completed [facility] (Triamcinolone) (Triamcinolone) 11:28:00 [facility] Kenalog Kenalog 2019-12-11 Completed [facility] (Triamcinolone) (Triamcinolone) 11:28:00 [facility] Flucelvax - single Flucelvax - single 2019-12-03 Completed [facility] dose syringe dose syringe 09:35:00 [facility] Flucelvax - single Flucelvax - single 2019-12-03 Completed [facility] dose syringe dose syringe 09:35:00 [facility] Flucelvax - single Flucelvax - single 2019-12-03 Completed [facility] dose syringe dose syringe 09:35:00 [facility] Flucelvax - single Flucelvax - single 2019-12-03 Completed [facility] dose syringe dose syringe 09:35:00 - [facility] Flucelvax - single Flucelvax - single 2019-12-03 Completed [facility] dose syringe dose syringe 09:35:00 - [facility] Flucelvax - single Flucelvax - single 2019-12-03 Completed [facility] dose syringe dose syringe 09:35:00 - [facility] Flucelvax - single Flucelvax - single 2019-12-03 Completed [facility] dose syringe dose syringe 09:35:00 - [facility] Flucelvax - single Flucelvax - single 2019-12-03 Completed [facility] dose syringe dose syringe 09:35:00 - [facility] Flucelvax - single Flucelvax - single 2019-12-03 Completed [facility] dose syringe dose syringe 09:35:00 - [facility] Flucelvax - single Flucelvax - single 2019-12-03 Completed [facility] dose syringe dose syringe 09:35:00 - [facility] Flucelvax - single Flucelvax - single 2019-12-03 Completed [facility] dose syringe dose syringe 09:35:00 - [facility] Flucelvax - single Flucelvax - single 2019-12-03 Completed [facility] dose syringe dose syringe 09:35:00 - [facility] Flucelvax - single Flucelvax - single 2019-12-03 Completed [facility] dose syringe dose syringe 09:35:00 - [facility] Flucelvax - single Flucelvax - single 2019-12-03 Completed [facility] dose syringe dose syringe 09:35:00 - [facility] Flucelvax - single Flucelvax - single 2019-12-03 Completed [facility] dose syringe dose syringe 09:35:00 - [facility] Flucelvax - single Flucelvax - single 2019-12-03 Completed [facility] dose syringe dose syringe 09:35:00 - [facility] Flucelvax - single Flucelvax - single 2019-12-03 Completed [facility] dose syringe dose syringe 09:35:00 - [facility] Flucelvax - single Flucelvax - single 2019-12-03 Completed [facility] dose syringe dose syringe 09:35:00 - [facility] Flucelvax - single Flucelvax - single 2019-12-03 Completed [facility] dose syringe dose syringe 09:35:00 - [facility] Flucelvax - single Flucelvax - single 2019-12-03 Completed [facility] dose syringe dose syringe 09:35:00 - [facility] Kenalog Kenalog 2019-06-22 Completed [facility] (Triamcinolone) (Triamcinolone) 09:55:00 - [facility] Dexamethasone Dexamethasone 2019-06-22 [facility]pleted [facility] - [facility] Kenalog Kenalog 2019-06-22 Completed [facility] (Triamcinolone) (Triamcinolone) 09:55:00 - [facility] Dexamethasone Dexamethasone 2019-06-22 Completed [facility] 09:[facility] - [facility] Flucelvax - Flucelvax - 2018-11-10 [facility]pleted [facility] multidose [facility]ial multidose vial 14:03:00 - [facility] Flucelvax - Flucelvax - 2018-11-10 Completed [facility] multidose vial multidose vial 14:03:00 - [facility] Flucelvax - Flucelvax - 2018-11-10 Completed [facility] multidose vial multidose vial 14:03:00 - [facility] Flucelvax - Flucelvax - 2018-11-10 Completed [facility] multidose vial multidose vial 14:03:00 - [facility] Flucelvax - Flucelvax - 2018-11-10 Completed [facility] multidose vial multidose vial 14:03:00 - [facility] Flucelvax - Flucelvax - 2018-11-10 Completed [facility] multidose vial multidose vial 14:03:00 - [facility] Flucelvax - Flucelvax - 2018-11-10 Completed [facility] multidose vial multidose vial 14:03:00 - [facility] Flucelvax - Flucelvax - 2018-11-10 Completed [facility] multidose vial multidose vial 14:03:00 - [facility] Flucelvax - Flucelvax - 2018-11-10 Completed [facility] multidose vial multidose vial 14:03:00 - [facility] Flucelvax - Flucelvax - 2018-11-10 Completed [facility] multidose vial multidose vial 14:03:00 - [facility] Flucelvax - Flucelvax - 2018-11-10 Completed [facility] multidose vial multidose vial 14:03:00 - [facility] Flucelvax - Flucelvax - 2018-11-10 Completed [facility] multidose vial multidose vial 14:03:00 - [facility] Flucelvax - Flucelvax - 2018-11-10 Completed [facility] multidose vial multidose vial 14:03:00 - [facility] Flucelvax - Flucelvax - 2018-11-10 Completed [facility] multidose vial multidose vial 14:03:00 - [facility] Flucelvax - Flucelvax - 2018-11-10 Completed [facility] multidose vial multidose vial 14:03:00 - [facility] Flucelvax - Flucelvax - 2018-11-10 Completed [facility] multidose vial multidose vial 14:03:00 - [facility] Flucelvax - Flucelvax - 2018-11-10 Completed [facility] multidose vial multidose vial 14:03:00 - [facility] Flucelvax - Flucelvax - 2018-11-10 Completed [facility] multidose vial multidose vial 14:03:00 - [facility] Flucelvax - Flucelvax - 2018-11-10 Completed [facility] multidose vial multidose vial 14:03:00 - [facility] Flucelvax - Flucelvax - 2018-11-10 Completed [facility] multidose vial multidose vial 14:03:00 - [facility] Flucelvax - Flucelvax - Unknown Completed [facility] multidose vial multidose vial - [facility] Flucelvax - single Flucelvax - single Unknown Completed [facility] dose syringe dose syringe - [facility] Flucelvax - Flucelvax - Unknown Completed [facility] multidose vial multidose vial - [facility] Flucelvax - single Flucelvax - single Unknown Completed [facility] dose syringe dose syringe - [facility] Flucelvax - Flucelvax - Unknown Completed [facility] multidose vial multidose vial - [facility] Flucelvax - single Flucelvax - single Unknown Completed [facility] dose syringe dose syringe - [facility] Flucelvax - Flucelvax - Unknown Completed [facility] multidose vial multidose vial - [facility] Flucelvax - single Flucelvax - single Unknown Completed [facility] dose syringe dose syringe - [facility] Flucelvax - Flucelvax - Unknown Completed [facility] multidose vial multidose vial - [facility] Flucelvax - single Flucelvax - single Unknown Completed [facility] dose syringe dose syringe - [facility] Flucelvax - Flucelvax - Unknown Completed [facility] multidose vial multidose vial - [facility] Flucelvax - single Flucelvax - single Unknown Completed [facility] dose syringe dose syringe - [facility] Vital Signs Vital Name Observation Time Observation Value Comments Source height 2022-04-20 09:40:00 63 [in_i] [facility] weight 2022-04-20 09:40:00 114 [lb_av] [facility] temperature 2022-04-20 09:40:00 97.1 [degF] [facility] bmi 2022-04-20 09:40:00 20.19 kg/m2 [facility] oximetry 2022-04-20 09:40:00 99 % [facility] respiratory rate 2022-04-20 09:40:00 16 /min Comm on [facility] blood pressure 2022-04-20 09:40:00 99 mm[Hg] [facility] - systolic [facility] blood pressure 2022-04-20 09:40:00 71 mm[Hg] Common [facility] - diastolic [facility] height 2022-04-20 10:00:00 63 [in_i] [facility] weight 2022-04-20 10:00:00 114 [lb_av] [facility] temperature 2022-04-20 10:00:00 97.1 [degF] [facility] bmi 2022-04-20 10:00:00 20.19 kg/m2 [facility] oximetry 2022-04-20 10:00:00 99 % [facility] respiratory rate 2022-04-20 10:00:00 16 /min Comm on [facility] blood pressure 2022-04-20 10:00:00 99 mm[Hg] Common [facility] - systolic [facility] blood pressure 2022-04-20 10:00:00 71 mm[Hg] Common [facility] - diastolic [facility] height 2021-10-16 09:20:00 63 [in_i] Common [facility] weight 2021-10-16 09:20:00 114.2 [lb_av] Common [facility] temperature 2021-10-16 09:20:00 97.0 [degF] [facility] bmi 2021-10-16 09:20:00 20.23 kg/m2 [facility] oximetry 2021-10-16 09:20:00 98 % [facility] respiratory rate 2021-10-16 09:20:00 16 /min Comm on [facility] blood pressure 2021-10-16 09:20:00 106 mm[Hg] Common [facility] - systolic [facility] blood pressure 2021-10-16 09:20:00 59 mm[Hg] Common [facility] - diastolic [facility] height 2021-08-29 09:40:00 63 [in_i] Common [facility] weight 2021-08-29 09:40:00 115 [lb_av] [facility] temperature 2021-08-29 09:40:00 97.8 [degF] Common [facility] bmi 2021-08-29 09:40:00 20.37 kg/m2 [facility] oximetry 2021-08-29 09:40:00 97 % [facility] respiratory rate 2021-08-29 09:40:00 16 /min Comm on [facility] - [facility] blood pressure 2021-08-29 09:40:00 116 mm[Hg] Common [facility] - systolic [facility] blood pressure 2021-08-29 09:40:00 57 mm[Hg] Common [facility] - diastolic [facility] Systolic blood 2021-06-18 17:18:00 116 mm[Hg] Univer sity of pressure [facility] Diastolic blood 2021-06-18 17:18:00 77 mm[Hg] Unive rsity of [facility] Heart rate 2021-06-18 17:18:00 74 /min [facility] Body temperature 2021-06-18 17:18:00 36.61 Melonie Univ ersity [facility] Respiratory rate 2021-06-18 17:18:00 16 /min [facility] 2021-06-18 17:18:00 [facility] 2021-06-18 17:18:00 52.164 kg [facility] BMI 2021-06-18 17:18:00 20.37 kg/m2 [facility] Oxygen saturation in 2021-06-18 17:18:00 100 /min [facility] Arterial blood by [facility] Pulse oximetry Branch height 2021-04-24 16:20:00 63 [in_i] Common [facility] weight 2021-04-24 16:20:00 120 [lb_av] Common [facility] temperature 2021-04-24 16:20:00 99.7 [degF] Common [facility] bmi 2021-04-24 16:20:00 21.25 kg/m2 [facility] height 2021-04-01 09:40:00 63 [in_i] Common [facility] weight 2021-04-01 09:40:00 120.0 [lb_av] Common [facility] temperature 2021-04-01 09:40:00 97.9 [degF] [facility] bmi 2021-04-01 09:40:00 21.25 kg/m2 [facility] oximetry 2021-04-01 09:40:00 99 % [facility] respiratory rate 2021-04-01 09:40:00 16 /min Comm on [facility] blood pressure 2021-04-01 09:40:00 100 mm[Hg] Common [facility] systolic [facility] blood pressure 2021-04-01 09:40:00 65 mm[Hg] Common [facility] diastolic [facility] Procedures Procedure Date / Time Performed Performing Clinician [facility] e ASSIGNMENT OF BENEFITS 2021-06-18 17:10:42 Doctor Unassigned, No [facility] Encounters Start End Encounter Admission Attending Care Care Encounter Source Date/Time Date/Time Type Type Clinicians Facility Department ID 2022-02-02 Outpatient [facility] [id number] [place] 09:44:33 [id number] Health 2021-10-[address] [facility] [id number] Common 09:05:00 Barbra [facility] 2021-10-[address] [facility] [id number] Common 09:31:00 Barbra [facility] 2021-05-[address] [facility] [id number] Common 10:18:01 Barbra [facility] 2021-04-24 Outpatient [place], STLMLC STLMLC [id number] Common 16:22:00 Barbra [facility] 2021-04-02 Outpatient [place], STLMLC STLMLC [id number] Common 12:28:39 Barbra [id number] [facility] 2021-04-02 Outpatient [place], STLMLC STLMLC [id number] Common 12:02:24 Barbra 92752 [facility] 2021-04-02 Outpatient [place], STLMLC STLMLC [id number] Common 11:51:47 Barbra 15341 [facility] 2021-04-02 Outpatient [place], STLMLC STLMLC [id number] Common 11:46:12 Barbra 59569 [facility] 2021-04-02 Outpatient [place], STLMLC STLMLC [id number] Common 11:05:47 Barbra 63524 [facility] 2022-05-06 2022-05-06 (TEL) STLMLC STLMLC [id number] Co mmon 00:00:00 00:00:00 [facility] 2022-04-28 2022-04-28 (TEL) STLMLC STLMLC [id number] Co mmon 00:00:00 00:00:00 [facility] 2022-04-27 2022-04-27 (TEL) STLMLC STLMLC [id number] Co mmon 00:00:00 00:00:00 [facility] 2022-04-22 2022-04-22 (TEL) STLMLC STLMLC [id number] Co mmon 00:00:00 00:00:00 [facility] 2022-04-20 2022-04-20 OFFICE STLMLC STLMLC [id number] Co mmon 00:00:00 00:00:00 VISIT [facility] LEVEL 3 [facility] 2022-04-20 2022-04-20 SUB ANNUAL STLMLC STLMLC [id number] Common 00:00:00 00:00:00 [facility] VISIT [facility] 2022-02-24 2022-02-24 (TEL) STLMLC STLMLC [id number] Co mmon 00:00:00 00:00:00 [facility] 2022-02-19 2022-02-19 (TEL) STLMLC STLMLC [id number] Co mmon 00:00:00 00:00:00 [facility] 2022-02-03 2022-02-03 Outpatient DAVID, [facility] [id number] [facility] 05:22:00 23:59:00 KARINA 2021-11-25 2021-11-25 (TEL) STLMLC STLMLC [id number] Co mmon 00:00:00 00:00:00 [facility] 2021-11-24 2021-11-24 (TEL) STLMLC STLMLC [id number] Co mmon 00:00:00 00:00:00 [facility] 2021-10-24 2021-10-24 (TEL) STLMLC STLMLC [id number] Co mmon 00:00:00 00:00:00 [facility] 2021-10-17 2021-10-17 Naveed Marie [facility] [id number] Univers 00:00:00 00:00:00 [employer] [id number] it y of [place] [id number] Shabbir as ELOY?BLEA [id number] [place] [address] [address] MEDICAL OFFICE BUILDING 2021-10-16 2021-10-16 OFFICE STLMLC STLMLC [id number] Co mmon 00:00:00 00:00:00 VISIT EST Spir it PT LEVEL 3 - [facility] 2021-10-02 2021-10-02 Outpatient DAYLIN_CRISTOPHER TOBAR [id number] [place] 00:00:00 00:00:00 SSA 0728 da [facility] Outre h Program 2021-09-29 2021-09-29 (TEL) STLMLC STLMLC [id number] Co mmon 00:00:00 00:00:00 [facility] 2021-09-05 2021-09-05 (TEL) STLMLC STLMLC [id number] Co mmon 00:00:00 00:00:00 [facility] 2021-08-29 2021-08-29 OFFICE STLC STLC [id number] Co mmon 00:00:00 00:00:00 VISIT EST Spir it PT LEVEL 3 [facility] 2021-06-18 2021-06-18 [facility] [id number] Univers 12:20:00 12:43:18 Care [facility] [id number] it y of [place] [id number] Shabbir as ELOY?BLEA [phone] [address] MEDICAL OFFICE BUILDING 2021-06-18 2021-06-18 Outpatient R [facility] [id number] Univers 12:20:00 12:43:18 RANIA ity [facility] 2021-06-18 2021-06-18 Orders Doctor LUIS [id number] Univers 00:00:00 00:00:00 Only Unassigned, AJ [id number] ity of Emet [facility] [id number] Shabbir as [id number] [address] 2021-05-09 2021-05-09 (TEL) STLMLC STLMLC [id number] Co mmon 00:00:00 00:00:00 [facility] 2021-04-24 2021-04-24 OL DIG E/M STLMLC STLMLC [id number] Common 00:00:00 00:00:00 SVC 5-10 Spiri t [facility] 2021-04-23 2021-04-23 (TEL) STLMLC STLMLC [id number] Co mmon 00:00:00 00:00:00 [facility] 2021-04-04 2021-04-04 (TEL) STLMLC STLMLC [id number] Co mmon 00:00:00 00:00:00 [facility] 2021-04-01 2021-04-01 OFFICE STLMLC STLMLC [id number] Co mmon 00:00:00 00:00:00 VISIT [facility] PT - CHI LEVEL 4 [facility] 2021-03-25 2021-03-25 (TEL) STLMLC STLMLC [id number] Co mmon 00:00:00 00:00:00 [facility] 2021-02-20 2021-02-20 (TEL) STLMLC STLMLC [id number] Co mmon 00:00:00 00:00:00 [facility] 2021-01-31 2021-01-31 (TEL) STLMLC STLMLC [id number] Co mmon 00:00:00 00:00:00 [facility] 2020-12-20 2020-12-20 (TEL) STLMLC STLMLC [id number] Co mmon 00:00:00 00:00:00 [facility] 2020-12-20 2020-12-20 OFFICE STLMLC STLMLC [id number] Co mmon 00:00:00 00:00:00 VISIT [facility] PT - [facility] LEVEL 1 [facility] 2020-11-22 2020-11-22 Outpatient STLMLC STLMLC [id number] Common 00:00:00 00:00:00 [facility] 2020-11-15 2020-11-15 Outpatient STLMLC STLMLC [id number] Common 00:00:00 00:00:00 [facility] 2020-10-09 2020-10-09 Outpatient STLMLC STLMLC [id number] Common 00:00:00 00:00:00 [facility] 2020-10-09 2020-10-09 Outpatient STLMLC STLMLC [id number] Common 00:00:00 00:00:00 [facility] 2020-10-09 2020-10-09 Outpatient STLMLC STLMLC [id number] Common 00:00:00 00:00:00 [facility] 2020-07-16 2020-07-16 Outpatient STLMLC STLMLC [id number] Common 00:00:00 00:00:00 [facility] 2020-07-09 2020-07-09 Outpatient STLMLC STLMLC [id number] Common 00:00:00 00:00:00 [facility] 2020-06-19 2020-06-19 Outpatient STLMLC STLMLC [id number] Common 00:00:00 00:00:00 [facility] 2020-04-18 2020-04-18 Outpatient STLMLC STLMLC [id number] Common 00:00:00 00:00:00 [facility] 2020-04-12 2020-04-12 Outpatient STLMLC STLMLC [id number] Common 00:00:00 00:00:00 [facility] 2020-03-04 2020-03-04 Outpatient STLMLC STLMLC [id number] Common 00:00:00 00:00:00 [facility] 2020-02-22 2020-02-22 Outpatient STLMLC STLMLC [id number] Common 00:00:00 00:00:00 [facility] 2020-02-14 2020-02-14 Outpatient STLMLC STLMLC [id number] Common 00:00:00 00:00:00 [facility] 2020-02-12 2020-02-12 Outpatient STLMLC STLMLC [id number] Common 00:00:00 00:00:00 [facility] 2020-01-17 2020-01-17 Outpatient STLMLC STLMLC [id number] Common 00:00:00 00:00:00 [facility] 2020-01-11 2020-01-11 Outpatient STLMLC STLMLC [id number] Common 00:00:00 00:00:00 [facility] 2019-12-11 2019-12-11 Outpatient STLMLC STLMLC [id number] Common 00:00:00 00:00:00 [facility] 2019-10-11 2019-10-11 [id number] Common 10:40:00 10:40:[address] [facility] 2019-10-06 2019-10-06 Out[facility] [id number] Common 16:26:00 16:26:[address] [facility] 2019-09-20 2019-09-20 [facility] [id number] Common 16:59:00 16:59:[address] [facility] 2019-09-15 2019-09-15 [facility] [id number] Common 16:06:00 16:06:[address] [facility] 2019-08-16 2019-08-16 [facility] [id number] Common 14:40:00 14:40:[address] [facility] 2019-06-22 2019-06-22 [facility] [id number] Common 09:40:00 09:40:[address] [facility] 2019-05-22 2019-05-22 [facility] [id number] Common 13:44:00 13:44:[address] [facility] 2019-05-18 2019-05-18 [facility] [id number] Common 13:50:00 13:50:[address] [facility] 2019-04-12 2019-04-12 [facility] [id number] Common 10:40:00 10:40:[address] [facility] [facility] 2019-01-11 2019-01-11 [id number] Common 09:40:00 09:40:[address] [facility] 2018-12-15 2018-12-15 [facility] [id number] Common 13:46:00 13:46:[address] [facility] 2018-12-13 2018-12-13 [facility] [id number] Common 16:54:00 16:54:[address] [facility] 2018-12-06 2018-12-06 [facility] [id number] Common 18:08:00 18:08:[address] [facility] 2018-12-06 2018-12-06 [facility] [id number] Common 13:04:00 13:04:[address] [facility] 2018-11-17 2018-11-17 [facility] [id number] Common 10:00:00 10:00:00 t [facility] 2018-11-16 2018-11-16 [facility] [id number] Common 14:00:00 14:00:[address] [facility] 2018-11-02 2018-11-02 [facility] [id number] Common 15:54:00 15:54:00 t Urgent Urgent Care [facility] 2018-10-31 2018-10-31 [facility] [id number] Common 09:16:00 09:16:[address] [facility] 2018-10-14 2018-10-14 [facility] [id number] Common 09:56:00 09:56:[address] [facility] 2018-10-11 2018-10-11 [facility] [id number] Common 09:18:00 09:18:[address] [facility] 2018-10-07 2018-10-07 [facility] [id number] Common 12:52:00 12:52:[address] [facility] 2018-09-23 2018-09-23 [facility] [id number] Common 09:30:00 09:30:00 t Bone Bone and Spiri t and Joint [facility] - [facility] 2018-09-22 2018-09-22 [facility] [id number] Common 14:40:00 14:40:[address] [facility] 2018-09-12 2018-09-12 [facility] [id number] Common 14:40:00 14:40:[address] [facility] 2018-07-21 2018-07-21 [facility] [id number] Common 21:54:00 21:54:[address] [facility] 2018-07-06 2018-07-06 [facility] [id number] Common 14:29:00 14:29:[address] [facility] 2018-07-04 2018-07-04 [facility] [id number] Common 10:29:00 10:29:[address] [facility] 2018-03-14 2018-03-14 [facility] [id number] Common 14:30:00 14:30:[address] [facility] 2018-03-09 2018-03-09 [facility] [id number] Common 09:00:00 09:00:00 t Bone Bone and Spiri t and Joint [facility] 2018-02-09 2018-02-09 [facility] [id number] Common 13:30:00 13:30:00 t Bone Bone and Spiri t and Joint [facility] - [facility] Results Test Description Test Time Test Comments Results Result Comments Source SARS-COV 2 Antigen SARS-COV 2 Antigen
[2023-01-01 15:14] LABS: Absolute Lymphocytes (CBC) 2.3 K/uL (0.7-4.9); Lymphocytes % 28.8 % (15.3-44.8); MCV 84.5 fL (80-100); Platelets 277 thou/uL (152-406); RBC Red Blood Cell Count 4.73 M/uL (3.86-4.86)
[2023-01-01 15:34] LABS: Urine Bacteria None Seen /HPF (<20); Urine Bilirubin NEGATIVE (Negative); Urine Blood Negative (Negative); Urine Clarity Extremely Turbid (Clear); Urine Color Light-Yellow (Yellow); Urine Glucose NEGATIVE (Negative); Urine Protein NEGATIVE (Negative); Urine RBC <5 /HPF (None Seen); Urine Urobilinogen Normal (Normal)
[2023-01-01 15:35] LABS: Potassium 3.9 mEq/L (3.5-5.1); Troponin High Sensitivity 5.1 pg/mL (<58.9)
--- NOTE | 2023-01-01 16:04 | RAD REPORT ---
EXAM DESCRIPTION: Barbra Single View01/01/2023 3:30 pm CLINICAL HISTORY: Chest pain COMPARISON: 2020 FINDINGS: The lungs appear clear of acute infiltrate. The heart is normal size IMPRESSION: No acute abnormalities displayed
--- NOTE | 2023-01-01 17:32 | ER ---
Nurse's Notes [facility] Name: Damaris Guerrero Age: 67 yrs Sex: Female : 1955 Arrival Date: 01/01/2023 Time: 14:18 Bed 3 Private MD: Diagnosis: Chest pain, unspecified;Strain of muscle and tendon of front wall of thorax Presentation: 01/01 14:40 Chief complaint: Patient states: chest pain, believes is muscular. Coronavirus screen: tm6 Vaccine status: Patient reports receiving the 2nd dose of the covid vaccine. Client denies travel out of the [place] in the last 14 days. Client indicates they have traveled out of the [place] in the last 14 days. At this time, unable to obtain information related to travel outside the [place] Ebola Screen: Patient negative for fever greater than or equal to 101.5 degrees Fahrenheit, and additional compatible Ebola Virus Disease symptoms Patient denies exposure to infectious person. Patient denies travel to an Ebola-affected area in the 21 days before illness onset. No symptoms or risks identified at this time. Initial Sepsis Screen: Does the patient meet any 2 criteria? No. Patient's initial sepsis screen is negative. Does the patient have a suspected source of infection? No. Patient's initial sepsis screen is negative. Risk Assessment: Do you want to hurt yourself or someone else? Patient reports no desire to harm self or others. Onset of symptoms was January 01, 2023. 14:40 Method Of Arrival: Ambulatory tm6 14:40 Acuity: KARLY 3 tm6 Triage Assessment: 14:42 General: Appears in no apparent distress. Behavior is calm, cooperative, appropriate tm6 for age. Pain: Complains of pain in mid-sternal area. Neuro: Level of Consciousness is awake, alert, obeys commands, confused, Oriented to person, place, time, situation, Appropriate for age. Cardiovascular: Capillary refill < 3 seconds Patient's skin is warm and dry. Respiratory: Airway is patent Respiratory effort is even, unlabored, Respiratory pattern is regular, symmetrical. Historical: - Allergies: 14:42 PENICILLINS; tm6 14:42 Hydrocodone-Acetaminophen; tm6 14:42 meloxicam; tm6 - PMHx: 14:42 Asthma; Hypercholesterolemia; Hypothyroidism; Osteoporosis; tm6 - PSHx: 14:42 Indra Eye Sx February 03; tm6 - Immunization history:: Adult Immunizations up to date, Client reports having NOT received the Covid vaccine. - Social history:: Smoking status: Patient denies any tobacco usage or history of. Patient/guardian denies using alcohol. - Family history:: not pertinent. Screenin:01 [facility] ED Fall Risk Assessment (Adult) History of falling in the last 3 months, ph including since admission No falls in past 3 months (0 pts) Confusion or Disorientation No (0 pts) Intoxicated or Sedated No (0 pts) Impaired Gait No (0 pts) Mobility Assist Device Used No (0 pt) Altered Elimination No (0 pt) Score/Fall Risk Level 0 - 2 = Low Risk Oriented to surroundings, Maintained a safe environment, Provided non-skid footwear, Hourly rounding (assess needs \T\ fall precautionary measures) done. Abuse screen: Denies threats or abuse. Denies injuries from another. Nutritional screening: No deficits noted. Tuberculosis screening: No symptoms or risk factors identified. Assessment: 16:47 General: Appears in no apparent distress. comfortable, Behavior is calm, cooperative, ph appropriate for age. Pain: Complains of pain in mid-sternal area Pain does not radiate. Neuro: Level of Consciousness is awake, alert, obeys commands, Oriented to person, place, time, situation. Cardiovascular: Reports chest pain, Denies fatigue, lightheadedness, nausea, palpitations, shortness of breath, vomiting, chest pain reproducible w/ palpation. Respiratory: Airway is patent Respiratory effort is even, unlabored, Respiratory pattern is regular, symmetrical. GI: No signs and/or symptoms were reported involving the gastrointestinal system. Derm: Skin is pink, warm \T\ dry. 18:26 Reassessment: Patient appears in no apparent distress at this time. Patient and/or ph family updated on plan of care and expected duration. Pain level reassessed. Patient is alert, oriented x 3, equal unlabored respirations, skin warm/dry/pink. Vital Signs: 14:40 BP 117 / 80; Pulse 91; Resp 18; Temp 99.4; Pulse Ox 99% on R/A; Weight 49.44 kg; Height tm6 5 ft. 3 in. ; Pain 8/10; 16:48 BP 101 / 63; Pulse 68; Resp 18; Pulse Ox 100% on R/A; ph 17:45 BP 122 / 73; Pulse 83; Resp 16; Pulse Ox 100% on R/A; me1 18:27 BP 113 / 68; Pulse 64; Resp 16; Temp 97.5; Pulse Ox 99% on R/A; ph 14:40 Body Mass Index 19.31 (49.44 kg, 160.02 cm) tm6 14:40 Pain Scale: Adult tm6 ED Course: 14:25 Patient arrived in ED. ts1 14:40 Ba Alicia MD is Attending Physician. [facility] 14:42 Triage completed. tm6 14:42 Arm band placed on right wrist. tm6 15:04 Inserted saline lock: 20 gauge in right antecubital area, using aseptic technique. tm6 15:32 XRAY Chest (1 view) In Process Unspecified. EDHI 16:01 Samantha Graham RN is Primary Nurse. ph 16:02 Patient has correct armband on for positive identification. Client placed on continuous ph cardiac and pulse oximetry monitoring. NIBP monitoring applied. 17:31 Austen Valencia MD is Referral Physician. [facility] 18:26 No provider procedures requiring assistance completed. IV discontinued, intact, ph bleeding controlled, No redness/swelling at site. Pressure dressing applied. Patient maintains SpO2 saturation greater than 95% on room air. Administered Medications: 16:46 Drug: Aspirin PO Chewable Tablet 324 mg PO once; 81 mg tablets x 4 Route: PO; ph 17:47 Follow up: Response: No adverse reaction me1 17:47 Drug: Metoprolol PO 25 mg PO once Route: PO; me1 Medication: 16:46 VIS not applicable for this client. ph Outcome: 17:31 Discharge ordered by . abdulkadir 18:27 Discharged to home ambulatory, with significant other, ph 18:27 Condition: good 18:27 Discharge instructions given to patient, Instructed on discharge instructions, follow up and referral plans. medication usage, Demonstrated understanding of instructions, follow-up care, medications, Prescriptions given X 3, 18:27 Patient left the ED. ph Signatures: Dispatcher [employer] EDHI Ba Alicia MD MD cha Hall, Patricia, JESSICA LOPEZ ph Yisel Kam PAS PAS ts1 Divya Salas RN RN ks1 Lillian, Tawney, RN RN tm6
--- NOTE | 2023-01-01 17:32 | EDPHYS ---
Physician Documentation [facility] Name: Damaris Guerrero Age: 67 yrs Sex: Female : 1955 Arrival Date: 01/01/2023 Time: 14:18 Bed 3 Private MD: BRENNA Physician Ba Alicia HPI: 01/01 17:25 This 67 yrs old Female presents to ER via Ambulatory with complaints of Chest abdulkadir Pain. 17:25 The patient or guardian reports chest pain that is located primarily in the anterior abdulkadir chest wall, right. Onset: 4 day(s) ago. The pain does not radiate. Associated signs and symptoms: The patient has no apparent associated signs or symptoms. The chest pain is described as aching, SORE TO PALPATE. Duration: The patient or guardian reports multiple episodes. Modifying factors: The symptoms are alleviated by remaining still, the symptoms are aggravated by movement, palpation of area. Severity of pain: At its worst the pain was mild in the emergency department the pain is unchanged. The patient has not experienced similar symptoms in the past. Historical: - Allergies: 14:42 PENICILLINS; tm6 14:42 Hydrocodone-Acetaminophen; tm6 14:42 meloxicam; tm6 - PMHx: 14:42 Asthma; Hypercholesterolemia; Hypothyroidism; Osteoporosis; tm6 - PSHx: 14:42 Indra Eye Sx February 03; tm6 - Immunization history:: Adult Immunizations up to date, Client reports having NOT received the Covid vaccine. - Social history:: Smoking status: Patient denies any tobacco usage or history of. Patient/guardian denies using alcohol. - Family history:: not pertinent. ROS: 17:25 Constitutional: Negative for fever, chills, and weight loss, Eyes: Negative for injury, abdulkadir pain, redness, and discharge, ENT: Negative for injury, pain, and discharge, Neck: Negative for injury, pain, and swelling, Cardiovascular: Negative for chest pain, palpitations, and edema, Respiratory: Negative for shortness of breath, cough, wheezing, and pleuritic chest pain, Abdomen/GI: Negative for abdominal pain, nausea, vomiting, diarrhea, and constipation, Back: Negative for injury and pain, : Negative for injury, bleeding, discharge, and swelling, MS/Extremity: Negative for injury and deformity, Skin: Negative for injury, rash, and discoloration, Neuro: Negative for headache, weakness, numbness, tingling, and seizure, Psych: Negative for depression, anxiety, suicide ideation, homicidal ideation, and hallucinations, Allergy/Immunology: Negative for hives, rash, and allergies, Endocrine: Negative for neck swelling, polydipsia, polyuria, polyphagia, and marked weight changes, Hematologic/Lymphatic: Negative for swollen nodes, abnormal bleeding, and unusual bruising, Exam: 17:25 Constitutional: This is a well developed, well nourished patient who is awake, alert, abdulkadir and in no acute distress. Head/Face: Normocephalic, atraumatic. Eyes: Pupils equal round and reactive to light, extra-ocular motions intact. Lids and lashes normal. Conjunctiva and sclera are non-icteric and not injected. Cornea within normal limits. Periorbital areas with no swelling, redness, or edema. ENT: Nares patent. No nasal discharge, no septal abnormalities noted. Tympanic membranes are normal and external auditory canals are clear. Oropharynx with no redness, swelling, or masses, exudates, or evidence of obstruction, uvula midline. Mucous membranes moist. Neck: Trachea midline, no thyromegaly or masses palpated, and no cervical lymphadenopathy. Supple, full range of motion without nuchal rigidity, or vertebral point tenderness. No Meningismus. Cardiovascular: Regular rate and rhythm with a normal S1 and S2. No gallops, murmurs, or rubs. Normal PMI, no JVD. No pulse deficits. Respiratory: Lungs have equal breath sounds bilaterally, clear to auscultation and percussion. No rales, rhonchi or wheezes noted. No increased work of breathing, no retractions or nasal flaring. Abdomen/GI: Soft, non-tender, with normal bowel sounds. No distension or tympany. No guarding or rebound. No evidence of tenderness throughout. Back: No spinal tenderness. No costovertebral tenderness. Full range of motion. Female : Normal external genitalia. Skin: Warm, dry with normal turgor. Normal color with no rashes, no lesions, and no evidence of cellulitis. MS/ Extremity: Pulses equal, no cyanosis. Neurovascular intact. Full, normal range of motion. Neuro: Awake and alert, GCS 15, oriented to person, place, time, and situation. Cranial nerves II-XII grossly intact. Motor strength 5/5 in all extremities. Sensory grossly intact. Cerebellar exam normal. Normal gait. Psych: Awake, alert, with orientation to person, place and time. Behavior, mood, and affect are within normal limits. 17:25 Chest/axilla: Inspection: normal, Palpation: tenderness, that is mild, of the anterior aspect of right upper chest, Axilla: are normal, no acute changes, Breasts: are normal, no acute changes, Lymph nodes: lymphadenopathy is not appreciated, 17:25 ECG was reviewed by the Attending Physician. Vital Signs: 14:40 BP 117 / 80; Pulse 91; Resp 18; Temp 99.4; Pulse Ox 99% on R/A; Weight 49.44 kg; Height tm6 5 ft. 3 in. ; Pain 8/10; 16:48 BP 101 / 63; Pulse 68; Resp 18; Pulse Ox 100% on R/A; ph 17:45 BP 122 / 73; Pulse 83; Resp 16; Pulse Ox 100% on R/A; me1 18:27 BP 113 / 68; Pulse 64; Resp 16; Temp 97.5; Pulse Ox 99% on R/A; ph 14:40 Body Mass Index 19.31 (49.44 kg, 160.02 cm) tm6 14:40 Pain Scale: Adult tm6 MDM: 14:40 Patient medically screened. abdulkadir 17:28 Differential diagnosis: abnormal EKG, acute myocardial infarction, acute pericarditis, abdulkadir anxiety, coronary artery disease chest wall pain, congestive heart failure Cholelithiasis esophagitis, herpes zoster, hiatal hernia, pancreatitis, pneumonia, pulmonary embolus, stable angina, thoracic aortic disection, unstable angina. HEART Score: History: Slightly Suspicious (0), ECG: Normal (0), Age: > or = 65 years (2), Risk Factors: 1 or 2 risk factors (1), [Hypercholesterolemia] Troponin: < or = 1 x Normal Limit (0). The patient was not given aspirin in the Emergency Department. FABY Risk Score: 1 - patient's age is greater or equal to 65 years, TOTAL SCORE = 1. Data reviewed: vital signs, nurses notes, lab test result(s), EKG, radiologic studies, plain films. Consideration of Admission/Observation Escalation of care including admission/observation considered. I considered the following discharge prescriptions or medication management in the emergency department Medications were administered in the Emergency Department. See MAR. Independent interpretation of the following test(s) in the Emergency Department EKG: See my EKG interpretation above. Test considered but Not performed: Ultrasound NO LE USG. Care significantly affected by the following chronic conditions: ASTHMA, HIGH CHOLESTEROL, HYPOTHYROID. Counseling: I had a detailed discussion with the patient and/or guardian regarding the historical points, exam findings, and any diagnostic results supporting the discharge/admit diagnosis, lab results, radiology results, the need for outpatient follow up, for definitive care, a strainer cleaner, a family practitioner. 01/01 14:40 Order name: Basic Metabolic Panel; Complete Time: 17:24 [facility] 01/01 14:40 Order name: CBC with Diff; Complete Time: 17:24 [facility] 01/01 14:40 Order name: Troponin HS; Complete Time: 17:24 [facility] 01/01 14:41 Order name: Lipase; Complete Time: 17:24 [facility] 01/01 14:41 Order name: Urinalysis w/ reflexes; Complete Time: 17:24 [facility] 01/01 15:38 Order name: Urine Culture EDFL 01/01 14:40 Order name: XRAY Chest (1 view); Complete Time: 17:24 [facility] 01/01 14:40 Order name: EKG; Complete Time: 14:40 [facility] 01/01 14:40 Order name: Cardiac monitoring; Complete Time: 16:05 [facility] 01/01 14:40 Order name: EKG - Nurse/Tech; Complete Time: 16:05 [facility] 01/01 14:40 Order name: IV Saline Lock; Complete Time: 15:02 [facility] 01/01 14:40 Order name: Labs collected and sent; Complete Time: 15:02 [facility] 01/01 14:40 Order name: O2 Per Protocol; Complete Time: 16:05 [facility] 01/01 14:40 Order name: O2 Sat Monitoring; Complete Time: 16:05 EC:25 Rate is 87 beats/min. Rhythm is regular. QRS [place] is Normal. OR interval is normal. QRS abdulkadir interval is normal. QT interval is normal. No Q waves. T waves are Normal. No ST changes noted. Clinical impression: Normal ECG and No evidence of ischemia. Interpreted by me. Reviewed by me. Administered Medications: 16:46 Drug: Aspirin PO Chewable Tablet 324 mg PO once; 81 mg tablets x 4 Route: PO; ph 17:47 Follow up: Response: No adverse reaction me1 17:47 Drug: Metoprolol PO 25 mg PO once Route: PO; me1 Disposition Summary: 01/01/23 17:31 Discharge Ordered Notes: Location: Home abdulkadir Problem: new abdulkadir Symptoms: have improved abdulkadir Condition: Stable abdulkadir Diagnosis - Chest pain, unspecified abdulkadir - Strain of muscle and tendon of front wall of thorax abdulkadir Followup: abdulkadir - With: Private Physician - When: 2 - 3 days - Reason: Recheck today's complaints, Continuance of care, Re-evaluation by your physician Followup: abdulkadir - With: Austen Valencia MD - When: 2 - 3 days - Reason: Recheck today's complaints, Re-evaluation by your physician Discharge Instructions: - Discharge Summary Sheet abdulkdair - Nonspecific Chest Pain, Adult abdulkadir - Chest Wall Pain abdulkadir - Chest Wall Pain, [id number] abdulkadir - Nonspecific Chest Pain, Adult, [id number] abdulkadir - Aspirin and Your Heart [facility] Forms: - Medication Reconciliation Form [facility] - Thank You Letter [facility] - Antibiotic Education abdulkadir - Prescription Opioid Use abdulkadir - Patient Portal Instructions [facility] - Leadership Thank You Letter [facility] Prescriptions: - Pepcid 20 mg Oral Tablet - take 1 tablet ORAL route every 12 hours for 10 days; 20 tablet; Refills: 0, [facility] Product Selection Permitted - Toprol XL 25 mg Oral Tablet - take 1 tablet ORAL route once daily; 20 tablet; Refills: 0, Product Selection [facility] Permitted Signatures: Dispatcher [employer] Ba Strange MD MD cha Hall, Patricia RN RN Divya Salas RN RN me1 Aayush Snyder RN RN tm6
[2023-01-01] MEDS ORDERED: METOPROLOL TAR 25 MG TAB ONE (17:57)
[2023-01-01 18:54] VITALS: BP 113/68; TEMP 97.5; O2SAT 99
== END 2023-01-01 18:27 | disposition home or self-care (01) ==
LOC: ER 14:18
DX: S29.011A Strain of muscle and tendon of front wall of thorax, initial encounter (principal); E03.9 Hypothyroidism, unspecified; E78.00 Pure hypercholesterolemia, unspecified; Z88.0 Allergy status to penicillin; Z88.5 Allergy status to narcotic agent; Z88.8 Allergy status to other drugs, medicaments and biological substances
CPT/HCPCS: 36415; 71045; 80048; 81001; 83690; 84484; 85025; 87086; 87088; 99284